=== PATIENT | male | born 1975 | race Caucasian/White ===

== ENCOUNTER 2023-02-22 11:27 | Emergency (ER) | payer BC ==
--- OUTSIDE RECORDS SUMMARY | 2023-02-22 11:34 | XMS REPORT | Continuity of Care Document ---
:1975 Author Organization [facility] t Address [address] [facility] [address] [place] [address] Care Team Providers Name Role Phone Asked, No Pcp Primary Care Physician Unavailable MAYKEL COHEN Attending Clinician Unavailable CIARA SAAVEDRA Attending Clinician Unavailable NICK VILLA Attending Clinician Unavailable CAIO RUIZ Attending Clinician Unavailable LASHANDA HO Attending Clinician Unavailable KATRIN GAMBOA Attending Clinician Unavailable HAILEY HOUSE Attending Clinician Unavailable MAYKEL COHEN Attending Clinician Unavailable BILLY_[facility]_Felice_M Attending Clinician Unavailable PATRIC MCKEON Attending Clinician Unavailable JARED VINCENT Attending Clinician Unavailable Jackie Hernandez MD Attending Clinician Michael Perla Attending Clinician DAVID STAFFORD Attending Clinician Unavailable GEORGE APPIAH Attending Clinician Unavailable TARAH SANTIAGO Attending Clinician Unavailable ALVERTO SOLO Attending Clinician Unavailable KATRIN GAMBOA Admitting Clinician [facility]Fel[facility] Admitting Clinician Unavailable MICHAEL PERLA Admitting Clinician Unavailable DAVID STAFFORD Admitting Clinician Unavailable ALVERTO SOLO Admitting Clinician Unavailable Payers Payer Name Policy Type Policy Number Effective Date Expiration Date S dimas BCBS PPO POS EPO [id number] 2020 [place]ICE 00:00:00 [place] [id number] 2020 ADVANTAGE (HMO) 00:00:00 Problems Condition Condition Condition Status Onset Resolution Last Treating Co mments Source Name Details Category Date Date Treatment Clinician Date Acute Acute Disease Active [facility] congestive congestive 7-18 st heart heart 00:00: Hospita failure, failure, 00 l unspecifie unspecifie d heart d heart failure failure type type Congestive Congestive Problem Active [facility] heart Heart 4-21 Medical failure Failure 00:00: 00 Sinus Sinus Problem Active [facility] tachycardi Tachycardi 3-09 Me dical a a 00:00: 00 Dyspnea on Dyspnea on Problem Active [facility] exertion Exertion 2-17 Medica l 00:00: 00 Generalize Generalize Problem Active [facility] d anxiety d Anxiety 2-17 Medi gordon disorder Disorder 00:00: 00 Dyspnea Dyspnea Problem Active [facility] 2-17 Medical 00:00: 00 Pain in Pain in Problem Active [facility] right hip Right Hip 1-27 Medi gordon joint Joint 00:00: 00 Pain of Pain of Problem Active [facility] right knee Right Knee 1-27 Me dical joint Joint 00:00: 00 Disorder Disorder Problem Active [facility] a of of 1-27 Medical endocrine Endocrine 00:00: system System 00 Acute Acute Problem Active [facility] pericardit Pericardit 1-27 Me dical is is 00:00: 00 Atrial Atrial Problem Active [facility] fibrillati Fibrillati 1-27 Me dical on on 00:00: 00 Insect Insect Problem Active [facility] bite, Bite, 3-30 Medical nonvenomou Nonvenomou 00:00: s, of foot s, of Foot 00 Superficia Superficia Problem Active [facility] l foreign l Foreign 3-30 Medi gordon body of Body of 00:00: skin of Skin of 00 right foot Right Foot Localized Localized Problem Active Christina via swelling Swelling 3-30 Medica l of left of Left 00:00: lower leg Lower Leg 00 Allergies, Adverse Reactions, Alerts Allergy Allergy Status Severity Reaction(s) Onset Inactive Treating Comm ents Source Name Type Date Date Clinician ADHESIVE Allergy [facility] NO KNOWN Allergy Active [facility] Social History Social Habit Start Date Stop Date Quantity Comments Source Sexual orientation Method t Hospital History of Social 2022-11-18 2022-11-18 [facility] function 00:00:00 00:00:00 Sex Ass[birth year] At [birth year] Met [facility] 00:00:00 00:00:00 Smoking Status Start Date Stop Date Source Tobacco smoking consumption unknown [facility] Medications Ordered Filled Start Stop Current Ordering Indication Dosage Frequency Signature Comments Components Source Medication Medication Date Date Medication? Clinician (SIG) Name Name atorvastati Yes 80mg QD Take 1 Meth meggan n (LIPITOR) 7-20 tablet (80 st 80 MG 05:26: mg total) Hospita tablet 02 by mouth l daily. digOXIN Yes 250ug QD Take 1 [facility] (LANOXIN) 7-[address] 250 mcg 05:26: (250 mcg Hospit a (0.25 mg) 02 total) by l tablet mouth daily. empaglifloz Yes 10mg QD Take 1 Meth meggan in 7-20 tablet (10 st (Jardiance) 05:26: mg total) H ospita 10 mg 02 by mouth l tablet daily. tablet furosemide 0 Yes 80mg Q.5D Take 1 Metho di (LASIX) 80 7-20 tablet (80 st mg tablet 05:26: mg total) Hos sharon 02 by mouth 2 l (two) times a day. metoprolol 0 Yes 50mg QD Take 1 Metho di succinate 7-20 tablet (50 st XL 05:26: mg total) Hospita (TOPROL-XL) 02 by mouth l 50 mg 24 hr daily. tablet potassium 0 Yes 20meq Q.5D Take 20 Meth meggan chloride 20 7-[address] mEq tablet 05:26: mouth 2 Hosp tom extended 02 (two) l release times a day. rivaroxaban 0 Yes 20mg QD Take 1 Meth meggan (XARELTO) 7-20 tablet (20 st 20 mg 05:26: mg total) Hospita tablet 02 by mouth l daily. sacubitriL- Yes 1{tbl} Q.5D Take 1 Me thodi valsartan 7-[address] (Entresto) 05:26: mouth 2 Hosp tom 24-26 mg 02 (two) l tablet per times a tablet day. traZODone 2022-0 Yes 50mg QD Take 1 Method i (DESYREL) 7-20 tablet (50 st 50 MG 05:26: mg total) Hospita tablet 02 by mouth l nightly. albuterol albuterol No 2puff(s Q4H albuterol [facility] sulfate HFA sulfate HFA ) sulfate Medical 90 90 HFA 90 mcg/actuati mcg/actuati mcg/actuat on aerosol on aerosol ion inhaler inhaler aerosol Inhale 2 Inhale 2 inhaler puffs every puffs every Inhale 2 4 hours by 4 hours by puffs inhalation inhalation every 4 route as route as hours by needed. needed. inhalation route as needed. prednisone prednisone No 1 BID prednisone [facility] 20 mg 20 mg 20 mg Medical tablet Take tablet Take tablet 1 tablet 1 tablet Take 1 twice a day twice a day tablet by oral by oral twice a route for 5 route for 5 day by days. days. oral route for 5 days. propranolol propranolol No 1 BID propranolo [facility] 20 mg 20 mg l 20 mg Medical tablet Take tablet Take tablet 1 tablet 1 tablet Take 1 twice a day twice a day tablet by oral by oral twice a route as route as day by needed. needed. oral route as needed. acetaminoph acetaminoph No acetaminop [facility] en 300 en 300 hen 300 Medical mg-codeine mg-codeine mg-codeine 30 mg 30 mg 30 mg tablet TAKE tablet TAKE tablet 1 TABLET BY 1 TABLET BY TAKE 1 MOUTH EVERY MOUTH EVERY TABLET BY 4 HOURS 4 HOURS MOUTH NEEDED NEEDED EVERY 4 HOURS NEEDED albuterol albuterol No albuterol [facility] sulfate HFA sulfate HFA sulfate Medical 90 90 HFA 90 mcg/actuati mcg/actuati mcg/actuat on aerosol on aerosol ion inhaler inhaler aerosol Inhale 2 Inhale 2 inhaler puffs every puffs every Inhale 2 4 hours by 4 hours by puffs inhalation inhalation every 4 route as route as hours by needed. needed. inhalation route as needed. amoxicillin amoxicillin No amoxicilli [facility] 500 mg 500 mg n 500 mg Medical capsule capsule capsule TAKE 1 TAKE 1 TAKE 1 CAPSULE BY CAPSULE BY CAPSULE BY MOUTH EVERY MOUTH EVERY MOUTH 6 HOURS 6 HOURS EVERY 6 DIRECTED DIRECTED HOURS DIRECTED prednisone prednisone No 1 BID prednisone [facility] 20 mg 20 mg 20 mg Medical tablet Take tablet Take tablet 1 tablet 1 tablet Take 1 twice a day twice a day tablet by oral by oral twice a route for 5 route for 5 day by days. days. oral route for 5 days. propranolol propranolol No 1 BID propranolo [facility] 20 mg 20 mg l 20 mg Medical tablet Take tablet Take tablet 1 tablet 1 tablet Take 1 twice a day twice a day tablet by oral by oral twice a route as route as day by needed. needed. oral route as needed. acetaminoph acetaminoph No acetaminop [facility] en 300 en 300 hen 300 Medical mg-codeine mg-codeine mg-codeine 30 mg 30 mg 30 mg tablet TAKE tablet TAKE tablet 1 TABLET BY 1 TABLET BY TAKE 1 MOUTH EVERY MOUTH EVERY TABLET BY 4 HOURS 4 HOURS MOUTH NEEDED NEEDED EVERY 4 HOURS NEEDED albuterol albuterol No albuterol [facility] sulfate HFA sulfate HFA sulfate Medical 90 90 HFA 90 mcg/actuati mcg/actuati mcg/actuat on aerosol on aerosol ion inhaler inhaler aerosol Inhale 2 Inhale 2 inhaler puffs every puffs every Inhale 2 4 hours by 4 hours by puffs inhalation inhalation every 4 route as route as hours by needed. needed. inhalation route as needed. amiodarone amiodarone No amiodarone [facility] 200 mg 200 mg 200 mg Medical tablet tablet tablet amoxicillin amoxicillin No amoxicilli [facility] 500 mg 500 mg n 500 mg Medical capsule capsule capsule TAKE 1 TAKE 1 TAKE 1 CAPSULE BY CAPSULE BY CAPSULE BY MOUTH EVERY MOUTH EVERY MOUTH 6 HOURS 6 HOURS EVERY 6 DIRECTED DIRECTED HOURS DIRECTED furosemide furosemide No furosemide [facility] 80 mg 80 mg 80 mg Medical tablet TAKE tablet TAKE tablet 1 TABLET BY 1 TABLET BY TAKE 1 MOUTH TWICE MOUTH TWICE TABLET BY A DAY A DAY MOUTH TWICE A DAY losartan 50 losartan 50 No losartan [facility] mg tablet mg tablet 50 mg Medi gordon tablet metoprolol metoprolol No 1 Q1D metoprolol [facility] succinate succinate succinate Medical ER 50 mg ER 50 mg ER 50 mg tablet,exte tablet,exte tablet,ext nded nded ended release 24 release 24 release 24 hr Take 1 hr Take 1 hr Take 1 tablet tablet tablet every day every day every day by oral by oral by oral route for route for route for 90 days. 90 days. 90 days. metoprolol metoprolol No metoprolol [facility] tartrate 25 tartrate 25 tartrate Medical mg tablet mg tablet 25 mg tablet potassium potassium No 1 BID potassium [facility] chloride ER chloride ER chloride Medical 20 mEq 20 mEq ER 20 mEq tablet,exte tablet,exte tablet,ext nded nded ended release release release Take 1 Take 1 Take 1 tablet tablet tablet twice a day twice a day twice a by oral by oral day by route for route for oral route 90 days. 90 days. for 90 days. prednisone prednisone No 1 BID prednisone [facility] 20 mg 20 mg 20 mg Medical tablet Take tablet Take tablet 1 tablet 1 tablet Take 1 twice a day twice a day tablet by oral by oral twice a route for 5 route for 5 day by days. days. oral route for 5 days. propranolol propranolol No 1 BID propranolo [facility] 20 mg 20 mg l 20 mg Medical tablet Take tablet Take tablet 1 tablet 1 tablet Take 1 twice a day twice a day tablet by oral by oral twice a route as route as day by needed. needed. oral route as needed. Vital Signs Vital Name Observation Time Observation Value Comments Source WEIGHT 2022-12-06 02:35:00 122.067 kg WEIGHT 2022-12-05 07:16:00 122.426 kg WEIGHT 2022-12-05 05:00:00 124.013 kg WEIGHT 2022-12-04 09:00:00 123.016 kg WEIGHT 2022-12-03 09:00:00 122.879 kg WEIGHT 2022-12-01 04:00:00 126.4 kg WEIGHT 2022-11-30 05:00:00 126.5 kg WEIGHT 2022-11-29 12:30:00 123.787 kg WEIGHT 2022-11-29 05:55:00 124.6 kg WEIGHT 2022-11-28 04:00:00 119.6 kg WEIGHT 2022-11-27 16:40:00 125.1 kg WEIGHT 2022-11-27 05:23:00 125.5 kg WEIGHT 2022-11-26 09:00:00 125.4 kg WEIGHT 2022-11-25 08:00:00 125.4 kg WEIGHT 2022-11-25 06:00:00 115.1 kg HEIGHT 2022-11-24 20:00:00 190.5 cm WEIGHT 2022-11-24 03:56:00 130 kg WEIGHT 2022-11-22 03:49:00 130.2 kg WEIGHT 2022-11-20 00:19:00 133.72 kg HEIGHT 2022-11-19 18:55:00 190.5 cm WEIGHT 2022-11-19 18:55:00 135.172 kg WEIGHT 2022-12-06 02:35:00 122.067 kg WEIGHT 2022-12-05 07:16:00 122.426 kg WEIGHT 2022-12-05 05:00:00 124.013 kg WEIGHT 2022-12-04 09:00:00 123.016 kg WEIGHT 2022-12-03 09:00:00 122.879 kg WEIGHT 2022-12-01 04:00:00 126.4 kg WEIGHT 2022-11-30 05:00:00 126.5 kg WEIGHT 2022-11-29 12:30:00 123.787 kg WEIGHT 2022-11-29 05:55:00 124.6 kg WEIGHT 2022-11-28 04:00:00 119.6 kg WEIGHT 2022-11-27 16:40:00 125.1 kg WEIGHT 2022-11-27 05:23:00 125.5 kg WEIGHT 2022-11-26 09:00:00 125.4 kg WEIGHT 2022-11-25 08:00:00 125.4 kg WEIGHT 2022-11-25 06:00:00 115.1 kg HEIGHT 2022-11-24 20:00:00 190.5 cm WEIGHT 2022-11-24 03:56:00 130 kg WEIGHT 2022-11-22 03:49:00 130.2 kg WEIGHT 2022-11-20 00:19:00 133.72 kg HEIGHT 2022-11-19 18:55:00 190.5 cm WEIGHT 2022-11-19 18:55:00 135.172 kg BP Diastolic 2022-07-10 00:00:00 118 mm[Hg] Shanti Katz edical Height 2022-07-10 00:00:00 75 [in_i] Shanti santoyo BMI (Body Mass 2022-07-10 00:00:00 38.2 kg/m2 [facility] Medical Index) BP Systolic 2022-07-10 00:00:00 150 mm[Hg] Shanti santoyo Body Weight 2022-07-10 00:00:00 4896 [oz_av] Shanti Katz edical Systolic blood 2022-11-19 07:32:00 100 mm[Hg] [facility] pressure Diastolic blood 2022-11-19 07:32:00 68 mm[Hg] [facility] pressure Heart rate 2022-11-19 07:32:00 91 /min [facility] Body temperature 2022-11-19 07:32:[address] [facility] Respiratory rate 2022-11-19 07:32:00 24 /min [facility] Oxygen saturation in 2022-11-19 07:32:00 99 /min [facility] Arterial blood by Pulse oximetry Body height 2022-11-18 21:40:00 190.5 cm [facility] Body weight 2022-11-18 21:40:00 129.729 kg [facility] BMI 2022-11-18 21:40:00 35.75 kg/m2 [facility] Procedures Procedure Date / Time Performing Clinician Source Performed ECG ED PRELIMINARY [facility]22-11[facility]19 [facility] 2022-11-19 01:33:00 Brittney Osman [facility]ital URINE CULTURE 2022-11-18 23:09:00 Brittney Osman spital URINALYSIS SCREEN AND 2022-11-18 23[facility]09:00 [facility], WITH REFLEX TO CULTURE XR CHEST 1 VW 2022-11-18 22:30:25 Brittney Osman spital PROTHROMBIN TIME WITH INR 2022-11-18 21:59:00 Brittney Osman [facility] PARTIAL THROMBOPLASTIN 2022-11-18 21:59:00 Dawson [facility] TIME (PTT) CBC WITH PLATELET AND 2022-11-18 21:59:00 [facility] DIFFERENTIAL COMPREHENSIVE METABOLIC 2022-11-18 21:59:00 Dawson [facility] PANEL MAGNESIUM LEVEL 2022-11-18 21:59:00 Brittney Osman spital TROPONIN T 2022-11-18 21:59:00 Brittney Osman Ho [facility]ital NT-PROBNP 2022-11-18 21:59:00 Brittney Osman Ho [facility]ital ESTIMATED GFR 2022-11-18 21:59:00 Brittney Osman Ho spital ECG 12-LEAD 2022-11-18 21:52:21 Brittney Osman Ho spital Plan of Care Planned Activity Planned Date Details Comments Source Future Scheduled 2023-02-[address] [facility] Test 21:20:44 malignant neoplasm of colon (procedure) [code = 335988333] Future Scheduled 2023-02-[address] [facility] Test 21:20:44 malignant neoplasm of colon (procedure) [code = 563460707] Future Scheduled 2023-02-[address] [facility] Test 21:20:44 malignant neoplasm of colon (procedure) [code = 966844174] Future Scheduled 2023-02-15 COVID-19 VACCINE (#1) [facility] Test 21:20:44 [code = COVID-19 VACCINE (#1)] Future Scheduled 2023-02-15 Pneumococcal Vaccine: [facility] Test 21:20:44 Pediatrics (0 to 5 Years) and At-Risk Patients (6 to 64 Years) (1 - PCV) [code = Pneumococcal Vaccine: Pediatrics (0 to 5 Years) and At-Risk Patients (6 to 64 Years) (1 - PCV)] Future Scheduled 2023-02-15 Hepatitis C screening [facility] Test 21:20:44 (procedure) [code = 743229236] Future Scheduled 2023-02-[address] [facility] Test 21:20:44 malignant neoplasm of colon (procedure) [code = 348608541] Future Scheduled 2023-02-[address] [facility] Test 21:20:44 malignant neoplasm of colon (procedure) [code = 837053238] Future Scheduled 2023-02-15 INFLUENZA VACCINE (#1) [facility] Test 21:20:44 [code = INFLUENZA VACCINE (#1)] Future Scheduled 2023-02-15 RSV VACCINES > 60 YR [facility] Test 21:20:44 (1 - 1-dose 60+ series) [code = RSV VACCINES > 60 YR (1 - 1-dose 60+ series)] Encounters Start End Encounter Admission Attending Care Care Encounter Source Date/Time Date/Time Type Type Clinicians Facility Department ID 2022-12-04 Inpatient ER MAYKEL COHEN [facility] [id number] [facility] 20:42:09 2022-12-01 Inpatient ER QUENTIN [facility] [id number] [facility] 00:00:00 CIARA 2022-11-29 Inpatient ER ALLEN [facility] [id number] [facility] 16:12:45 [facility] 2022-11-29 Inpatient ER ALLEN [facility] [id number] SLEH 15:49:06 [facility] 2022-11-29 Inpatient ER JOSEPH [facility] SLEH [id number] SLEH 00:16:38 CAIO 2022-11-28 Inpatient ER JOSEPH [facility] [id number] SLEH 10:36:25 CAIO 2022-11-28 Inpatient ER JOSEPH [facility] [id number] SLEH 07:38:23 CAIO 2022-11-28 Inpatient ER QUENTIN [facility] [id number] [facility] 00:00:00 [facility] 2022-11-28 Inpatient ER QUENTIN [facility]H SLEH [id number] SLEH 00:00:00 [facility] 2022-11-26 Inpatient ER SLEH SLEH [id number] SLEH 10:13:02 2022-11-25 Inpatient ER SLEH SLEH [id number] SLEH 10:26:20 2022-11-25 Inpatient ER SLEH SLEH [id number] SLEH 04:23:35 2022-11-24 Inpatient ER SLEH SLEH [id number] SLEH 19:15:17 2022-11-24 Inpatient ER SLEH SLEH [id number] SLEH 00:00:00 2022-11-23 Inpatient ER LASHANDA HO [facility] SLEH [id number] SLEH 07:54:44 2022-11-21 Inpatient ER BEE [facility]H SLEH [id number] SLEH 09:47:06 KATRIN 2022-09-30 Inpatient TREE RUIZ [facility] [id number] [facility] 07:00:00 [id number] [facility] 2023-01-30 2023-01-30 Outpatient MAYKEL CHAPPELL [facility] D00 [id number] [place] 15:29:00 15:29:00 -[id number] [facility] 2022-12-12 2022-12-12 Outpatient GC_GCHFM_Hi PRIV PRIV [id number] [facility] 00:00:00 00:00:00 ll_M [id number] Medica l 2022-11-19 2022-12-06 Inpatient ER LASHANDA HO SLE Emergency 20 [id number] SLE[facility] 19:01:00 13:04:00 2022-11-25 2022-11-25 Outpatient SLEH SLEH [id number] SLEH 00:00:00 00:00:00 2022-11-24 2022-11-24 Inpatient ER SLEH SLEH [id number] SLEH 23:22:47 00:00:00 2022-11-22 2022-11-22 Inpatient ER SEN, SLEH SLEH [id number] SLEH 23:37:50 00:00:00 JARED 2022-11-22 2022-11-22 Inpatient ER SEN, SLEH SLEH [id number] SLEH 23:37:48 00:00:00 JARED 2022-11-21 2022-11-21 Inpatient ER BEE, SLE SLEH [id number] SLE 00:00:00 00:00:00 KATRIN 2022-11-19 2022-11-19 Emergency ER [facility] SLE SLE [id number] SLE 19:25:01 19:25:01 PATRIC KWOK 2022-11-18 2022-11-19 [facility] [id number] [facility]i 16:43:00 05:26:00 Encounter Michael Perla [id number] [id number] Hospit a .3.982063 l .8 2022-11-18 2022-11-19 Inpatient SAM [facility] [id number] [place] 00:00:00 00:00:00 MICHAEL [address] 2022-11-16 2022-11-18 Inpatient ER [facility] [id number] [place] 02:44:00 12:30:00 DAVID -[id number] d a [facility] 2022-11-15 2022-11-15 Emergency ER BIJAL, [facility] [id number] [place] 23:56:00 23:56:00 GEORGE -[id number] [facility] 2022-11-14 2022-11-14 Outpatient CINDY SANTIAGO, [facility] [id number] [place] 12:59:00 12:59:00 TARAH -[id number] [facility] 2022-10-22 2022-10-22 Outpatient GC_G[facility]_Hi PRIV PRIV [id number] [facility] 00:00:00 00:00:00 ll_M [id number] Medica l 2022-10-21 2022-10-21 Outpatient GC_[facility]_Hi PRIV PRIV [id number] [facility] 00:00:00 00:00:00 ll_M [id number] Medica 2022-09-23 2022-09-26 Inpatient ER EDIL, [facility] MED [id number] [place] 20:37:00 14:25:00 MOHAMMAD -[id number] [facility] 2022-09-05 2022-09-05 Outpatient CINDY HOUSE, [facility] [id number] [place] 10:32:00 10:32:00 HAILEY -[id number] [facility] 2022-08-25 2022-08-25 Outpatient GC_GCH[facility]_Hi PRIV PRIV [id number] [facility] 00:00:00 00:00:00 ll_M [id number] Medica l 2022-08-22 2022-08-22 Outpatient GC_G[facility]_Hi PRIV PRIV [id number] [facility] 00:00:00 00:00:00 ll_M [id number] Medica l 2022-08-22 2022-08-22 Michael [facility] 21 [facility] 00:00:00 00:00:00 Felice DO: Health - Med ical [id number] GC[address], Office* [place] [address] , Ph. 2022-07-10 2022-07-10 Outpatient GC_G[facility]_Hi PRIV PRIV [id number] [facility] 00:00:00 00:00:00 ll_M [id number] Medica l 2022-07-10 2022-07-10 Michael [facility] 09 [facility] 00:00:00 00:00:00 Hill, DO: Health - Med ical [id number] F[address] [facility] [address], Office* [place] [address] , Ph. 2022-06-20 2022-06-20 Outpatient GC_GCH[facility]_Hi PRIV PRIV [id number] [facility] 00:00:00 00:00:00 ll_M [id number] Medica l 2022-06-20 2022-06-20 Michael [facility] 17 [facility] 00:00:00 00:00:00 Hill, DO: Health - Med ical [id number] Fm [facility]_Au [address] [facility] [address], Office* [place] [address] , Ph. 2022-02-27 2022-02-27 Outpatient GC_GCHFM_Hi PRIV PRIV [id number] [facility] 00:00:00 00:00:00 ll_M [id number] Medica l Results Test Description Test Time Test Comments Results Result Comments Source CYANIDE LEVEL 2022-12-08 13:05:08 Test Item Value Reference Range Interpretation Comme nts SCAN RESULT (test code = 2791213) BASIC METABOLIC [id number] 04:45:09 Test Item Value Reference Range Interpretation Comments SODIUM (BEAKER) 138 meq/L 136-145 (test code = 381) POTASSIUM 4.3 meq/L 3.5-5.1 Specimen slight ly (BEAKER) (test hemolyzed code = 379) CHLORIDE (BEAKER) 94 meq/L 98-107 L (test code = 382) CO2 (BEAKER) 31 meq/L 22-29 H (test code = 355) BLOOD UREA 38 mg/dL 7-21 H NITROGEN (BEAKER) (test code = 354) CREATININE 2.98 mg/dL 0.57-1.25 H Specimen slight ly (BEAKER) (test hemolyzed code = 358) GLUCOSE RANDOM 104 mg/dL 70-105 (BEAKER) (test code = 652) CALCIUM (BEAKER) 9.5 mg/dL 8.4-10.2 (test code = 697) EGFR (BEAKER) 25 Interpretatio n of eGFR (test code = mL/min/1.73 values Stage De scription 1092) sq m Result G1 Nelida l or high >=90 G2 Mildly decreased 60-89 G3a Mildl y to moderately 45-5 9 G3b Moderately to s everely 30-44 G4 Severl y decreased 15-29 G5 Kidney failure <15Reported eGF R is based on the CKD-EPI 2020 equation that d oes not use a race coefficientEsti mated GFR is not as accur ate as Creatinine Carol licha in predicting glom erular filtration rate . Estimated GFR is not appl icable for dialysis patien ts Heeler ID - ADMINDIGOXIN [id number] 04:17:21 Test Item Value Reference Range Interpretation Comments DIGOXIN LEVEL (BEAKER) (test code 0.62 ng/mL 0.80-2.00 L = 669) Heeler ID - [id number] 03:18:19 Test Item Value Reference Range Interpretation Comments PHOSPHORUS (BEAKER) (test code = 4.8 mg/dL 2.3-4.7 H 604) Heeler ID - [id number] 03:18:18 Test Item Value Reference Range Interpretation Comments MAGNESIUM (BEAKER) (test code = 2.3 mg/dL 1.6-2.6 627) Heeler ID - ADMINOperator ID - ADMINLACTIC ACID, [id number] 03:10:39 Test Item Value Reference Range Interpretation Comments LACTATE BLOOD VENOUS 1.74 mmol/L 0.50-2.00 Specime n slightly (2) (BEAKER) (test hemolyzed code = 2152) Heeler ID - ADMINCBC W/PLT COUNT & AUTO [id number] 03:00:34 Test Item Value Reference Range Interpretation Comments WHITE BLOOD CELL COUNT (BEAKER) 11.6 K/ L 3.5-10.5 H (test code = 775) RED BLOOD CELL COUNT (BEAKER) 4.66 M/ L 4.63-6.08 (test code = 761) HEMOGLOBIN (BEAKER) (test code = 11.5 GM/DL 13.7-17.5 L 410) HEMATOCRIT (BEAKER) (test code = 38.1 % 40.1-51.0 L 411) MEAN CORPUSCULAR VOLUME (BEAKER) 82 fL 79-92 (test code = 753) MEAN CORPUSCULAR HEMOGLOBIN 24.7 pg 25.7-32.2 L (BEAKER) (test code = 751) MEAN CORPUSCULAR HEMOGLOBIN CONC 30.2 GM/DL 32.3-36.5 L (BEAKER) (test code = 752) RED CELL DISTRIBUTION WIDTH 15.2 % 11.6-14.4 H (BEAKER) (test code = 412) PLATELET COUNT (BEAKER) (test 370 K/CU MM 150-450 code = 756) MEAN PLATELET VOLUME (BEAKER) 9.1 fL 9.4-12.4 L (test code = 754) NUCLEATED RED BLOOD CELLS 0 /100 WBC 0-0 (BEAKER) (test code = 413) NEUTROPHILS RELATIVE PERCENT 68 % (BEAKER) (test code = 429) LYMPHOCYTES RELATIVE PERCENT 17 % (BEAKER) (test code = 430) MONOCYTES RELATIVE PERCENT 10 % (BEAKER) (test code = 431) EOSINOPHILS RELATIVE PERCENT 2 % (BEAKER) (test code = 432) BASOPHILS RELATIVE PERCENT 1 % (BEAKER) (test code = 437) NEUTROPHILS ABSOLUTE COUNT 7.87 K/ L 1.78-5.38 H (BEAKER) (test code = 670) LYMPHOCYTES ABSOLUTE COUNT 1.94 K/ L 1.32-3.57 (BEAKER) (test code = 414) MONOCYTES ABSOLUTE COUNT (BEAKER) 1.20 K/ L 0.30-0.82 H (test code = 415) EOSINOPHILS ABSOLUTE COUNT 0.23 K/ L 0.04-0.54 (BEAKER) (test code = 416) BASOPHILS ABSOLUTE COUNT (BEAKER) 0.09 K/ L 0.01-0.08 H (test code = 417) IMMATURE GRANULOCYTES-RELATIVE 1.90 % 0.00-1.00 H PERCENT (BEAKER) (test code = 2801) BASIC METABOLIC [id number] 18:15:13 Test Item Value Reference Range Interpretation Comments SODIUM (BEAKER) 136 meq/L 136-145 (test code = 381) POTASSIUM 3.6 meq/L 3.5-5.1 (BEAKER) (test code = 379) CHLORIDE (BEAKER) 92 meq/L 98-107 L (test code = 382) CO2 (BEAKER) 33 meq/L 22-29 H (test code = 355) BLOOD UREA 39 mg/dL 7-21 H NITROGEN (BEAKER) (test code = 354) CREATININE 2.86 mg/dL 0.57-1.25 H (BEAKER) (test code = 358) GLUCOSE RANDOM 118 mg/dL 70-105 H (BEAKER) (test code = 652) CALCIUM (BEAKER) 9.7 mg/dL 8.4-10.2 (test code = 697) EGFR (BEAKER) 27 Interpretatio n of eGFR (test code = mL/min/1.73 values Stage De scription 1092) sq m Result G1 Nelida l or high >=90 G2 Mildly decreased 60-89 G3a Mildl y to moderately 45-5 9 G3b Moderately to s everely 30-44 G4 Severl y decreased 15-29 G5 Kidney failure <15Reported eGF R is based on the CKD-EPI 2021 equation that d oes not use a race coefficientEsti mated GFR is not as accur ate as Creatinine Carol licha in predicting glom erular filtration rate . Estimated GFR is not appl icable for dialysis patien ts Heeler ID - ADMINBASIC METABOLIC [id number] 06:05:54 Test Item Value Reference Range Interpretation Comments SODIUM (BEAKER) 135 meq/L 136-145 L (test code = 381) POTASSIUM 3.8 meq/L 3.5-5.1 Specimen slight ly (BEAKER) (test hemolyzed code = 379) CHLORIDE (BEAKER) 91 meq/L 98-107 L (test code = 382) CO2 (BEAKER) 31 meq/L 22-29 H (test code = 355) BLOOD UREA 38 mg/dL 7-21 H NITROGEN (BEAKER) (test code = 354) CREATININE 2.80 mg/dL 0.57-1.25 H Specimen slight ly (BEAKER) (test hemolyzed code = 358) GLUCOSE RANDOM 99 mg/dL 70-105 (BEAKER) (test code = 652) CALCIUM (BEAKER) 9.4 mg/dL 8.4-10.2 (test code = 697) EGFR (BEAKER) 27 Interpretatio n of eGFR (test code = mL/min/1.73 values Stage De scription 1092) sq m Result G1 Nelida l or high >=90 G2 Mildly decreased 60-89 G3a Mildl y to moderately 45-5 9 G3b Moderately to s everely 30-44 G4 Severl y decreased 15-29 G5 Kidney failure <15Reported eGF R is based on the CKD-EPI 2020 equation that d oes not use a race coefficientEsti mated GFR is not as accur ate as Creatinine Carol licha in predicting glom erular filtration rate . Estimated GFR is not appl icable for dialysis patien ts Heeler ID - [id number] 05:49:20 Test Item Value Reference Range Interpretation Comments MAGNESIUM (BEAKER) 2.3 mg/dL 1.6-2.6 Specimen slightly (test code = 627) hemolyzed Heeler ID - [id number] 05:49:20 Test Item Value Reference Range Interpretation Comments PHOSPHORUS (BEAKER) 4.8 mg/dL 2.3-4.7 H Specimen slightly (test code = 604) hemolyzed Heeler ID - ADMINHEPATIC FUNCTION [id number] 05:49:20 Test Item Value Reference Range Interpretation Comments TOTAL PROTEIN (BEAKER) 7.0 gm/dL 6.0-8.3 Speci men slightly (test code = 770) hemolyzed ALBUMIN (BEAKER) (test 3.6 g/dL 3.5-5.0 Speci men slightly code = 1145) hemolyzed BILIRUBIN TOTAL 0.6 mg/dL 0.2-1.2 Specimen sli ghtly (BEAKER) (test code = hemoly zed 377) BILIRUBIN DIRECT 0.3 mg/dL 0.1-0.5 Specimen sl ightly (BEAKER) (test code = hemoly zed 706) ALKALINE PHOSPHATASE 61 U/L 40-150 (BEAKER) (test code = 346) AST (SGOT) (BEAKER) 27 U/L 5-34 Specimen slightly (test code = 353) hemolyzed ALT (SGPT) (BEAKER) 6 U/L 6-55 Specimen slightly (test code = 347) hemolyzed Heeler ID - ADMINDIGOXIN [id number] 05:32:09 Test Item Value Reference Range Interpretation Comments DIGOXIN LEVEL (BEAKER) (test code 0.81 ng/mL 0.80-2.00 = 669) Heeler ID - MARCOCALCIUM, [id number] 05:27:36 Test Item Value Reference Range Interpretation Comments CALCIUM IONIZED (BEAKER) (test 1.06 mmol/L 1.12-1.27 L code = 698) PH, BLOOD (BEAKER) (test code = 7.48 1810) LACTIC ACID, [id number] 05:25:32 Test Item Value Reference Range Interpretation Comments LACTATE BLOOD VENOUS 1.75 mmol/L 0.50-2.00 Specime n slightly (2) (BEAKER) (test hemolyzed code = 2872) Heeler ID - MARCOCBC W/PLT COUNT & AUTO [id number] 05:09:25 Test Item Value Reference Range Interpretation Comments WHITE BLOOD CELL COUNT (BEAKER) 10.4 K/ L 3.5-10.5 (test code = 775) RED BLOOD CELL COUNT (BEAKER) 4.54 M/ L 4.63-6.08 L (test code = 761) HEMOGLOBIN (BEAKER) (test code = 11.1 GM/DL 13.7-17.5 L 410) HEMATOCRIT (BEAKER) (test code = 37.0 % 40.1-51.0 L 411) MEAN CORPUSCULAR VOLUME (BEAKER) 82 fL 79-92 (test code = 753) MEAN CORPUSCULAR HEMOGLOBIN 24.4 pg 25.7-32.2 L (BEAKER) (test code = 751) MEAN CORPUSCULAR HEMOGLOBIN CONC 30.0 GM/DL 32.3-36.5 L (BEAKER) (test code = 752) RED CELL DISTRIBUTION WIDTH 15.0 % 11.6-14.4 H (BEAKER) (test code = 412) PLATELET COUNT (BEAKER) (test 315 K/CU MM 150-450 code = 756) MEAN PLATELET VOLUME (BEAKER) 9.6 fL 9.4-12.4 (test code = 754) NUCLEATED RED BLOOD CELLS 0 /100 WBC 0-0 (BEAKER) (test code = 413) NEUTROPHILS RELATIVE PERCENT 67 % (BEAKER) (test code = 429) LYMPHOCYTES RELATIVE PERCENT 19 % (BEAKER) (test code = 430) MONOCYTES RELATIVE PERCENT 9 % (BEAKER) (test code = 431) EOSINOPHILS RELATIVE PERCENT 2 % (BEAKER) (test code = 432) BASOPHILS RELATIVE PERCENT 1 % (BEAKER) (test code = 437) NEUTROPHILS ABSOLUTE COUNT 6.98 K/ L 1.78-5.38 H (BEAKER) (test code = 670) LYMPHOCYTES ABSOLUTE COUNT 2.01 K/ L 1.32-3.57 (BEAKER) (test code = 414) MONOCYTES ABSOLUTE COUNT (BEAKER) 0.92 K/ L 0.30-0.82 H (test code = 415) EOSINOPHILS ABSOLUTE COUNT 0.23 K/ L 0.04-0.54 (BEAKER) (test code = 416) BASOPHILS ABSOLUTE COUNT (BEAKER) 0.11 K/ L 0.01-0.08 H (test code = 417) IMMATURE GRANULOCYTES-RELATIVE 1.60 % 0.00-1.00 H PERCENT (BEAKER) (test code = 2801) BASIC METABOLIC [id number] 12:58:43 Test Item Value Reference Range Interpretation Comments SODIUM (BEAKER) 137 meq/L 136-145 (test code = 381) POTASSIUM 3.7 meq/L 3.5-5.1 (BEAKER) (test code = 379) CHLORIDE (BEAKER) 89 meq/L 98-107 L (test code = 382) CO2 (BEAKER) 35 meq/L 22-29 H (test code = 355) BLOOD UREA 40 mg/dL 7-21 H NITROGEN (BEAKER) (test code = 354) CREATININE 2.97 mg/dL 0.57-1.25 H (BEAKER) (test code = 358) GLUCOSE RANDOM 119 mg/dL 70-105 H (BEAKER) (test code = 652) CALCIUM (BEAKER) 9.4 mg/dL 8.4-10.2 (test code = 697) EGFR (BEAKER) 25 Interpretatio n of eGFR (test code = mL/min/1.73 values Stage De scription 1092) sq m Result G1 Nelida l or high >=90 G2 Mildly decreased 60-89 G3a Mildl y to moderately 45-5 9 G3b Moderately to s everely 30-44 G4 Severl y decreased 15-29 G5 Kidney failure <15Reported eGF R is based on the CKD-EPI 2020 equation that d oes not use a race coefficientEsti mated GFR is not as accur ate as Creatinine Carol licha in predicting glom erular filtration rate . Estimated GFR is not appl icable for dialysis patien ts Heeler ID - [id number] 12:55:04 Test Item Value Reference Range Interpretation Comments MAGNESIUM (BEAKER) (test code = 2.3 mg/dL 1.6-2.6 627) Heeler ID - MMCALCIUM, [id number] 12:34:26 Test Item Value Reference Range Interpretation Comments CALCIUM IONIZED (BEAKER) (test 1.07 mmol/L 1.12-1.27 L code = 698) PH, BLOOD (BEAKER) (test code = 7.47 5870) LACTIC ACID, [id number] 12:29:11 Test Item Value Reference Range Interpretation Comments LACTATE BLOOD VENOUS (2) (BEAKER) 1.78 mmol/L 0.50-2.00 (test code = 2872) Heeler ID - MMLACTIC ACID, [id number] 09:38:06 Test Item Value Reference Range Interpretation Comments LACTATE BLOOD VENOUS 2.30 mmol/L 0.50-2.00 H Specime n slightly (2) (BEAKER) (test hemolyzed code = 2872) Heeler ID - [id number] 09:30:01 Test Item Value Reference Range Interpretation Comments PARTIAL THROMBOPLASTIN TIME 79.8 seconds 22.5-36.0 H (BEAKER) (test code = 760) DIGOXIN [id number] 06:25:01 Test Item Value Reference Range Interpretation Comments DIGOXIN LEVEL (BEAKER) (test code 0.92 ng/mL 0.80-2.00 = 669) Heeler ID - MMBASIC METABOLIC [id number] 05:52:07 Test Item Value Reference Range Interpretation Comments SODIUM (BEAKER) 138 meq/L 136-145 (test code = 381) POTASSIUM 3.6 meq/L 3.5-5.1 (BEAKER) (test code = 379) CHLORIDE (BEAKER) 89 meq/L 98-107 L (test code = 382) CO2 (BEAKER) 35 meq/L 22-29 H (test code = 355) BLOOD UREA 42 mg/dL 7-21 H NITROGEN (BEAKER) (test code = 354) CREATININE 3.03 mg/dL 0.57-1.25 H (BEAKER) (test code = 358) GLUCOSE RANDOM 121 mg/dL 70-105 H (BEAKER) (test code = 652) CALCIUM (BEAKER) 9.0 mg/dL 8.4-10.2 (test code = 697) EGFR (BEAKER) 25 Interpretatio n of eGFR (test code = mL/min/1.73 values Stage De scription 1092) sq m Result G1 Norm al or high >=90 G2 Mildly decreased 60-89 G3a Mildl y to moderately 45-5 9 G3b Moderately to s everely 30-44 G4 Severl y decreased 15-29 G5 Kidney failure <15Reported eGF R is based on the CKD-EPI 2020 equation that d oes not use a race coefficientEsti mated GFR is not as accur ate as Creatinine Carol licha in predicting glom erular filtration rate . Estimated GFR is not appl icable for dialysis patien ts Heeler ID - [id number] 05:49:44 Test Item Value Reference Range Interpretation Comments MAGNESIUM (BEAKER) (test code = 2.3 mg/dL 1.6-2.6 627) Heeler ID - [id number] 05:49:44 Test Item Value Reference Range Interpretation Comments PHOSPHORUS (BEAKER) (test code = 5.0 mg/dL 2.3-4.7 H 604) Heeler ID - MMHEPATIC FUNCTION [id number] 05:49:44 Test Item Value Reference Range Interpretation Comments TOTAL PROTEIN (BEAKER) (test code = 6.8 gm/dL 6.0-8.3 770) ALBUMIN (BEAKER) (test code = 1145) 3.6 g/dL 3.5-5.0 BILIRUBIN TOTAL (BEAKER) (test code 0.6 mg/dL 0.2-1.2 = 377) BILIRUBIN DIRECT (BEAKER) (test 0.3 mg/dL 0.1-0.5 code = 706) ALKALINE PHOSPHATASE (BEAKER) (test 63 U/L 40-150 code = 346) AST (SGOT) (BEAKER) (test code = 28 U/L 5-34 353) ALT (SGPT) (BEAKER) (test code = 6 U/L 6-55 347) Heeler ID - MMLACTIC ACID, [id number] 05:44:43 Test Item Value Reference Range Interpretation Comments LACTATE BLOOD VENOUS 1.68 mmol/L 0.50-2.00 Specime n slightly (2) (BEAKER) (test hemolyzed code = 2872) Heeler ID - MMCBC W/PLT COUNT & AUTO [id number] 05:44:16 Test Item Value Reference Range Interpretation Comments WHITE BLOOD CELL COUNT (BEAKER) 12.2 K/ L 3.5-10.5 H (test code = 775) RED BLOOD CELL COUNT (BEAKER) 4.48 M/ L 4.63-6.08 L (test code = 761) HEMOGLOBIN (BEAKER) (test code = 11.2 GM/DL 13.7-17.5 L 410) HEMATOCRIT (BEAKER) (test code = 36.2 % 40.1-51.0 L 411) MEAN CORPUSCULAR VOLUME (BEAKER) 81 fL 79-92 (test code = 753) MEAN CORPUSCULAR HEMOGLOBIN 25.0 pg 25.7-32.2 L (BEAKER) (test code = 751) MEAN CORPUSCULAR HEMOGLOBIN CONC 30.9 GM/DL 32.3-36.5 L (BEAKER) (test code = 752) RED CELL DISTRIBUTION WIDTH 15.0 % 11.6-14.4 H (BEAKER) (test code = 412) PLATELET COUNT (BEAKER) (test 324 K/CU MM 150-450 code = 756) MEAN PLATELET VOLUME (BEAKER) 9.2 fL 9.4-12.4 L (test code = 754) NUCLEATED RED BLOOD CELLS 0 /100 WBC 0-0 (BEAKER) (test code = 413) NEUTROPHILS RELATIVE PERCENT 69 % (BEAKER) (test code = 429) LYMPHOCYTES RELATIVE PERCENT 19 % (BEAKER) (test code = 430) MONOCYTES RELATIVE PERCENT 8 % (BEAKER) (test code = 431) EOSINOPHILS RELATIVE PERCENT 1 % (BEAKER) (test code = 432) BASOPHILS RELATIVE PERCENT 1 % (BEAKER) (test code = 437) NEUTROPHILS ABSOLUTE COUNT 8.41 K/ L 1.78-5.38 H (BEAKER) (test code = 670) LYMPHOCYTES ABSOLUTE COUNT 2.35 K/ L 1.32-3.57 (BEAKER) (test code = 414) MONOCYTES ABSOLUTE COUNT (BEAKER) 1.03 K/ L 0.30-0.82 H (test code = 415) EOSINOPHILS ABSOLUTE COUNT 0.17 K/ L 0.04-0.54 (BEAKER) (test code = 416) BASOPHILS ABSOLUTE COUNT (BEAKER) 0.11 K/ L 0.01-0.08 H (test code = 417) IMMATURE GRANULOCYTES-RELATIVE 1.30 % 0.00-1.00 H PERCENT (BEAKER) (test code = 2801) CALCIUM, [id number] 05:33:27 Test Item Value Reference Range Interpretation Comments CALCIUM IONIZED (BEAKER) (test 1.04 mmol/L 1.12-1.27 L code = 698) PH, BLOOD (BEAKER) (test code = 7.47 1810) LACTIC ACID, [id number] 02:10:15 Test Item Value Reference Range Interpretation Comments LACTATE BLOOD VENOUS 1.96 mmol/L 0.50-2.00 Specime n slightly (2) (BEAKER) (test hemolyzed code = 2872) Heeler ID - [id number] 02:01:17 Test Item Value Reference Range Interpretation Comments PARTIAL THROMBOPLASTIN TIME 97.4 seconds 22.5-36.0 H (BEAKER) (test code = 760) BASIC METABOLIC [id number] 21:03:05 Test Item Value Reference Range Interpretation Comments SODIUM (BEAKER) 137 meq/L 136-145 (test code = 381) POTASSIUM 4.1 meq/L 3.5-5.1 (BEAKER) (test code = 379) CHLORIDE (BEAKER) 87 meq/L 98-107 L (test code = 382) CO2 (BEAKER) 37 meq/L 22-29 H (test code = 355) BLOOD UREA 41 mg/dL 7-21 H NITROGEN (BEAKER) (test code = 354) CREATININE 2.97 mg/dL 0.57-1.25 H (BEAKER) (test code = 358) GLUCOSE RANDOM 113 mg/dL 70-105 H (BEAKER) (test code = 652) CALCIUM (BEAKER) 9.4 mg/dL 8.4-10.2 (test code = 697) EGFR (BEAKER) 25 Interpretatio n of eGFR (test code = mL/min/1.73 values Stage De scription 1092) sq m Result G1 Nelida l or high >=90 G2 Mildly decreased 60-89 G3a Mildl y to moderately 45-5 9 G3b Moderately to s everely 30-44 G4 Sever ly decreased 15-29 G5 Kidney failure <15Repo rted eGFR is based on the CKD-EPI 2020 equation t hat does not use a race coefficientEsti mated GFR is not as accur ate as Creatinine Carol licha in predicting glom erular filtration rate . Estimated GFR is not appl icable for dialysis patien ts Heeler ID - [id number] 21:00:44 Test Item Value Reference Range Interpretation Comments MAGNESIUM (BEAKER) (test code = 2.3 mg/dL 1.6-2.6 627) Heeler ID - ADMINLACTIC ACID, [id number] 20:56:39 Test Item Value Reference Range Interpretation Comments LACTATE BLOOD VENOUS 1.42 mmol/L 0.50-2.00 Specime n slightly (2) (BEAKER) (test hemolyzed code = 2872) Heeler ID - ADMINCALCIUM, [id number] 20:36:48 Test Item Value Reference Range Interpretation Comments CALCIUM IONIZED (BEAKER) (test 1.10 mmol/L 1.12-1.27 L code = 698) PH, BLOOD (BEAKER) (test code = 7.48 1810) [id number] 19:02:07 Test Item Value Reference Range Interpretation Comments PARTIAL THROMBOPLASTIN TIME 58.8 seconds 22.5-36.0 H (BEAKER) (test code = 760) LACTIC ACID, [id number] 17:16:25 Test Item Value Reference Range Interpretation Comments LACTATE BLOOD VENOUS 1.86 mmol/L 0.50-2.00 Specime n slightly (2) (BEAKER) (test hemolyzed code = 9832) Heeler ID - ADMINBASIC METABOLIC [id number] 12:53:49 Test Item Value Reference Range Interpretation Comments SODIUM (BEAKER) 132 meq/L 136-145 L (test code = 381) POTASSIUM 3.5 meq/L 3.5-5.1 (BEAKER) (test code = 379) CHLORIDE (BEAKER) 84 meq/L 98-107 L (test code = 382) CO2 (BEAKER) 37 meq/L 22-29 H (test code = 355) BLOOD UREA 41 mg/dL 7-21 H NITROGEN (BEAKER) (test code = 354) CREATININE 2.97 mg/dL 0.57-1.25 H (BEAKER) (test code = 358) GLUCOSE RANDOM 143 mg/dL 70-105 H (BEAKER) (test code = 652) CALCIUM (BEAKER) 9.7 mg/dL 8.4-10.2 (test code = 697) EGFR (BEAKER) 25 Interpretatio n of eGFR (test code = mL/min/1.73 values Stage De scription 1092) sq m Result G1 Nelida l or high >=90 G2 Mildly decreased 60-89 G3a Mildl y to moderately 45-5 9 G3b Moderately to s everely 30-44 G4 Severl y decreased 15-29 G5 Kidney failure <15Reported eGF R is based on the CKD-EPI 2020 equation that d oes not use a race coefficientEsti mated GFR is not as accur ate as Creatinine Carol hurt in predicting glom erular filtration rate . Estimated GFR is not appl icable for dialysis patien ts Heeler ID - [id number] 12:52:49 Test Item Value Reference Range Interpretation Comments MAGNESIUM (BEAKER) (test code = 2.4 mg/dL 1.6-2.6 627) Heeler ID - ADMINLACTIC ACID, [id number] 12:43:10 Test Item Value Reference Range Interpretation Comments LACTATE BLOOD VENOUS (2) (BEAKER) 2.01 mmol/L 0.50-2.00 H (test code = 2872) Heeler ID - [id number] 12:38:07 Test Item Value Reference Range Interpretation Comments PARTIAL THROMBOPLASTIN TIME 55.1 seconds 22.5-36.0 H (BEAKER) (test code = 760) CALCIUM, [id number] 12:20:02 Test Item Value Reference Range Interpretation Comments CALCIUM IONIZED (BEAKER) (test 1.09 mmol/L 1.12-1.27 L code = 698) PH, BLOOD (BEAKER) (test code = 7.47 1810) LACTIC ACID, [id number] 08:36:53 Test Item Value Reference Range Interpretation Comments LACTATE BLOOD VENOUS 1.93 mmol/L 0.50-2.00 Specime n slightly (2) (BEAKER) (test hemolyzed code = 2872) Heeler ID - ADMINBLOOD GAS, [id number] 08:31:30 Test Item Value Reference Range Interpretation Comments PH VENOUS (BEAKER) (test code = 7.52 7.32-7.42 H 701) PCO2 VENOUS (BEAKER) (test code = 47 mm Hg 41-51 755) PO2 VENOUS (BEAKER) (test code = 85 mm Hg 25-40 H 702) O2 SATURATION VENOUS (BEAKER) 97.2 % 40.0-70.0 H (test code = 703) HCO3 VENOUS (BEAKER) (test code = 38 mmol/L 21-29 H 705) BASE EXCESS VENOUS (BEAKER) (test 13.3 mmol/L -2.0-3.0 H code = 704) PATIENT TEMPERATURE (BEAKER) 37.0 (test code = 1818) FIO2 (BEAKER) (test code = 1819) 21.0 BASIC METABOLIC [id number] 06:09:30 Test Item Value Reference Range Interpretation Comments SODIUM (BEAKER) 137 meq/L 136-145 (test code = 381) POTASSIUM 3.7 meq/L 3.5-5.1 (BEAKER) (test code = 379) CHLORIDE (BEAKER) 86 meq/L 98-107 L (test code = 382) CO2 (BEAKER) 36 meq/L 22-29 H (test code = 355) BLOOD UREA 40 mg/dL 7-21 H NITROGEN (BEAKER) (test code = 354) CREATININE 3.09 mg/dL 0.57-1.25 H (BEAKER) (test code = 358) GLUCOSE RANDOM 141 mg/dL 70-105 H (BEAKER) (test code = 652) CALCIUM (BEAKER) 9.7 mg/dL 8.4-10.2 (test code = 697) EGFR (BEAKER) 24 Interpretatio n of eGFR (test code = mL/min/1.73 values Stage De scription 1092) sq m Result G1 Nelida l or high >=90 G2 Mildly decreased 60-89 G3a Mildl y to moderately 45-5 9 G3b Moderately to s everely 30-44 G4 Severl y decreased 15-29 G5 Kidney failure <15Reported eGF R is based on the CKD-EPI 2020 equation that d oes not use a race coefficientEsti mated GFR is not as accur ate as Creatinine Carol licha in predicting glom erular filtration rate . Estimated GFR is not appl icable for dialysis patien ts Heeler ID - [id number] 06:00:36 Test Item Value Reference Range Interpretation Comments MAGNESIUM (BEAKER) (test code = 2.4 mg/dL 1.6-2.6 627) Heeler ID - [id number] 06:00:36 Test Item Value Reference Range Interpretation Comments PHOSPHORUS (BEAKER) (test code = 5.6 mg/dL 2.3-4.7 H 604) Heeler ID - ADMINHEPATIC FUNCTION [id number] 06:00:36 Test Item Value Reference Range Interpretation Comments TOTAL PROTEIN (BEAKER) (test code = 6.9 gm/dL 6.0-8.3 770) ALBUMIN (BEAKER) (test code = 1145) 3.7 g/dL 3.5-5.0 BILIRUBIN TOTAL (BEAKER) (test code 0.9 mg/dL 0.2-1.2 = 377) BILIRUBIN DIRECT (BEAKER) (test 0.4 mg/dL 0.1-0.5 code = 706) ALKALINE PHOSPHATASE (BEAKER) (test 61 U/L 40-150 code = 346) AST (SGOT) (BEAKER) (test code = 39 U/L 5-34 H 353) ALT (SGPT) (BEAKER) (test code = 10 U/L 6-55 347) Heeler ID - ADMINDIGOXIN [id number] 05:51:13 Test Item Value Reference Range Interpretation Comments DIGOXIN LEVEL (BEAKER) (test code 0.83 ng/mL 0.80-2.00 = 669) Heeler ID - [id number] 05:27:03 Test Item Value Reference Range Interpretation Comments PARTIAL THROMBOPLASTIN TIME 60.6 seconds 22.5-36.0 H (BEAKER) (test code = 760) CBC W/PLT COUNT & AUTO [id number] 05:04:31 Test Item Value Reference Range Interpretation Comments WHITE BLOOD CELL COUNT (BEAKER) 12.3 K/ L 3.5-10.5 H (test code = 775) RED BLOOD CELL COUNT (BEAKER) 4.61 M/ L 4.63-6.08 L (test code = 761) HEMOGLOBIN (BEAKER) (test code = 11.5 GM/DL 13.7-17.5 L 410) HEMATOCRIT (BEAKER) (test code = 37.3 % 40.1-51.0 L 411) MEAN CORPUSCULAR VOLUME (BEAKER) 81 fL 79-92 (test code = 753) MEAN CORPUSCULAR HEMOGLOBIN 24.9 pg 25.7-32.2 L (BEAKER) (test code = 751) MEAN CORPUSCULAR HEMOGLOBIN CONC 30.8 GM/DL 32.3-36.5 L (BEAKER) (test code = 752) RED CELL DISTRIBUTION WIDTH 14.9 % 11.6-14.4 H (BEAKER) (test code = 412) PLATELET COUNT (BEAKER) (test 337 K/CU MM 150-450 code = 756) MEAN PLATELET VOLUME (BEAKER) 9.7 fL 9.4-12.4 (test code = 754) NUCLEATED RED BLOOD CELLS 0 /100 WBC 0-0 (BEAKER) (test code = 413) NEUTROPHILS RELATIVE PERCENT 69 % (BEAKER) (test code = 429) LYMPHOCYTES RELATIVE PERCENT 20 % (BEAKER) (test code = 430) MONOCYTES RELATIVE PERCENT 7 % (BEAKER) (test code = 431) EOSINOPHILS RELATIVE PERCENT 2 % (BEAKER) (test code = 432) BASOPHILS RELATIVE PERCENT 1 % (BEAKER) (test code = 437) NEUTROPHILS ABSOLUTE COUNT 8.47 K/ L 1.78-5.38 H (BEAKER) (test code = 670) LYMPHOCYTES ABSOLUTE COUNT 2.44 K/ L 1.32-3.57 (BEAKER) (test code = 414) MONOCYTES ABSOLUTE COUNT (BEAKER) 0.91 K/ L 0.30-0.82 H (test code = 415) EOSINOPHILS ABSOLUTE COUNT 0.19 K/ L 0.04-0.54 (BEAKER) (test code = 416) BASOPHILS ABSOLUTE COUNT (BEAKER) 0.10 K/ L 0.01-0.08 H (test code = 417) IMMATURE GRANULOCYTES-RELATIVE 1.20 % 0.00-1.00 H PERCENT (BEAKER) (test code = 2801) LACTIC ACID, [id number] 05:01:35 Test Item Value Reference Range Interpretation Comments LACTATE BLOOD VENOUS 2.18 mmol/L 0.50-2.00 H Specime n slightly (2) (BEAKER) (test hemolyzed code = 2872) Heeler ID - ADMINCALCIUM, [id number] 04:51:47 Test Item Value Reference Range Interpretation Comments CALCIUM IONIZED (BEAKER) (test 1.06 mmol/L 1.12-1.27 L code = 698) PH, BLOOD (BEAKER) (test code = 7.50 1810) LACTIC ACID, [id number] 01:04:57 Test Item Value Reference Range Interpretation Comments LACTATE BLOOD VENOUS (2) (BEAKER) 1.69 mmol/L 0.50-2.00 (test code = 2872) Heeler ID - ADMINBASIC METABOLIC [id number] 21:24:06 Test Item Value Reference Range Interpretation Comments SODIUM (BEAKER) 138 meq/L 136-145 (test code = 381) POTASSIUM 3.3 meq/L 3.5-5.1 L (BEAKER) (test code = 379) CHLORIDE (BEAKER) 87 meq/L 98-107 L (test code = 382) CO2 (BEAKER) 37 meq/L 22-29 H (test code = 355) BLOOD UREA 42 mg/dL 7-21 H NITROGEN (BEAKER) (test code = 354) CREATININE 2.94 mg/dL 0.57-1.25 H (BEAKER) (test code = 358) GLUCOSE RANDOM 152 mg/dL 70-105 H (BEAKER) (test code = 652) CALCIUM (BEAKER) 9.9 mg/dL 8.4-10.2 (test code = 697) EGFR (BEAKER) 26 Interpretatio n of eGFR (test code = mL/min/1.73 values Stage De scription 1092) sq m Result G1 Nelida l or high >=90 G2 Mildly decreased 60-89 G3a Mildl y to moderately 45-5 9 G3b Moderately to s everely 30-44 G4 Severl y decreased 15-29 G5 Kidney failure <15Reported eGF R is based on the CKD-EPI 2020 equation that d oes not use a race coefficientEsti mated GFR is not as accur ate as Creatinine Carol licha in predicting glom erular filtration rate . Estimated GFR is not appl icable for dialysis patien ts Heeler ID - [id number] 21:23:26 Test Item Value Reference Range Interpretation Comments MAGNESIUM (BEAKER) (test code = 2.2 mg/dL 1.6-2.6 627) Heeler ID - [id number] 21:22:07 Test Item Value Reference Range Interpretation Comments PARTIAL THROMBOPLASTIN TIME 47.1 seconds 22.5-36.0 H (BEAKER) (test code = 760) LACTIC ACID, [id number] 21:18:45 Test Item Value Reference Range Interpretation Comments LACTATE BLOOD VENOUS 2.41 mmol/L 0.50-2.00 H Specime n slightly (2) (BEAKER) (test hemolyzed code = 2872) Heeler ID - ADMINCALCIUM, [id number] 21:13:05 Test Item Value Reference Range Interpretation Comments CALCIUM IONIZED (BEAKER) (test 1.09 mmol/L 1.12-1.27 L code = 698) PH, BLOOD (BEAKER) (test code = 7.48 1810) LACTIC ACID, [id number] 16:50:22 Test Item Value Reference Range Interpretation Comments LACTATE BLOOD VENOUS (2) (BEAKER) 2.37 mmol/L 0.50-2.00 H (test code = 2872) Heeler ID - [id number] 13:36:05 Test Item Value Reference Range Interpretation Comments PARTIAL THROMBOPLASTIN TIME 42.4 seconds 22.5-36.0 H (BEAKER) (test code = 760) BASIC METABOLIC [id number] 12:17:19 Test Item Value Reference Range Interpretation Comments SODIUM (BEAKER) 137 meq/L 136-145 (test code = 381) POTASSIUM 4.2 meq/L 3.5-5.1 Specimen modera tely (BEAKER) (test hemolyzed code = 379) CHLORIDE (BEAKER) 91 meq/L 98-107 L (test code = 382) CO2 (BEAKER) 35 meq/L 22-29 H (test code = 355) BLOOD UREA 39 mg/dL 7-21 H NITROGEN (BEAKER) (test code = 354) CREATININE 2.73 mg/dL 0.57-1.25 H Specimen modera tely (BEAKER) (test hemolyzed code = 358) GLUCOSE RANDOM 160 mg/dL 70-105 H (BEAKER) (test code = 652) CALCIUM (BEAKER) 9.6 mg/dL 8.4-10.2 (test code = 697) EGFR (BEAKER) 28 Interpretatio n of eGFR (test code = mL/min/1.73 values Stage De scription 1092) sq m Result G1 Nelida l or high >=90 G2 Mildly decreased 60-89 G3a Mildl y to moderately 45-5 9 G3b Moderately to s everely 30-44 G4 Severl y decreased 15-29 G5 Kidney failure <15Reported eGF R is based on the CKD-EPI 2020 equation that d oes not use a race coefficientEsti mated GFR is not as accur ate as Creatinine Carol licha in predicting glom erular filtration rate . Estimated GFR is not appl icable for dialysis patien ts Heeler ID - [id number] 12:16:38 Test Item Value Reference Range Interpretation Comments MAGNESIUM (BEAKER) 2.3 mg/dL 1.6-2.6 Specimen moderately (test code = 627) hemolyzed Heeler ID - ADMINLACTIC ACID, [id number] 12:11:43 Test Item Value Reference Range Interpretation Comments LACTATE BLOOD VENOUS 2.12 mmol/L 0.50-2.00 H Specime n slightly (2) (BEAKER) (test hemolyzed code = 4752) Heeler ID - ADMINCALCIUM, [id number] 12:04:12 Test Item Value Reference Range Interpretation Comments CALCIUM IONIZED (BEAKER) (test 1.09 mmol/L 1.12-1.27 L code = 698) PH, BLOOD (BEAKER) (test code = 7.50 2660) BLOOD GAS, [id number] 12:04:03 Test Item Value Reference Range Interpretation Comments PH VENOUS (BEAKER) (test code = 7.50 7.32-7.42 H 701) PCO2 VENOUS (BEAKER) (test code = 44 mm Hg 41-51 755) PO2 VENOUS (BEAKER) (test code = 53 mm Hg 25-40 H 702) O2 SATURATION VENOUS (BEAKER) 89.8 % 40.0-70.0 H (test code = 703) HCO3 VENOUS (BEAKER) (test code = 33 mmol/L 21-29 H 705) BASE EXCESS VENOUS (BEAKER) (test 9.0 mmol/L -2.0-3.0 H code = 704) PATIENT TEMPERATURE (BEAKER) (test 37.0 code = 1818) BLOOD [id number] 11:00:18 Test Item Value Reference Range Interpretation Comments CULTURE (BEAKER) (test No growth in 5 days code = 1095) The specimen volume collected for this blood culture was below the optimum (10 mL per bottle or 20 mL total). Use of lower volumes may adversely affect recovery and/or detection times of some organisms.BLOOD [id number] 11:00:17 Test Item Value Reference Range Interpretation Comments CULTURE (BEAKER) (test No growth in 5 days code = 1095) DIGOXIN [id number] 04:47:11 Test Item Value Reference Range Interpretation Comments DIGOXIN LEVEL (BEAKER) (test code 0.73 ng/mL 0.80-2.00 L = 669) Heeler ID - ADMINCALCIUM, [id number] 04:31:49 Test Item Value Reference Range Interpretation Comments CALCIUM IONIZED (BEAKER) (test 1.09 mmol/L 1.12-1.27 L code = 698) PH, BLOOD (BEAKER) (test code = 7.48 1810) HEPATIC FUNCTION [id number] 04:24:50 Test Item Value Reference Range Interpretation Comments TOTAL PROTEIN (BEAKER) (test code = 6.8 gm/dL 6.0-8.3 770) ALBUMIN (BEAKER) (test code = 1145) 3.6 g/dL 3.5-5.0 BILIRUBIN TOTAL (BEAKER) (test code 0.7 mg/dL 0.2-1.2 = 377) BILIRUBIN DIRECT (BEAKER) (test 0.4 mg/dL 0.1-0.5 code = 706) ALKALINE PHOSPHATASE (BEAKER) (test 64 U/L 40-150 code = 346) AST (SGOT) (BEAKER) (test code = 52 U/L 5-34 H 353) ALT (SGPT) (BEAKER) (test code = 19 U/L 6-55 347) Heeler ID - ADMINBASIC METABOLIC [id number] 04:24:49 Test Item Value Reference Range Interpretation Comments SODIUM (BEAKER) 138 meq/L 136-145 (test code = 381) POTASSIUM 3.5 meq/L 3.5-5.1 (BEAKER) (test code = 379) CHLORIDE (BEAKER) 92 meq/L 98-107 L (test code = 382) CO2 (BEAKER) 34 meq/L 22-29 H (test code = 355) BLOOD UREA 40 mg/dL 7-21 H NITROGEN (BEAKER) (test code = 354) CREATININE 2.61 mg/dL 0.57-1.25 H (BEAKER) (test code = 358) GLUCOSE RANDOM 132 mg/dL 70-105 H (BEAKER) (test code = 652) CALCIUM (BEAKER) 9.9 mg/dL 8.4-10.2 (test code = 697) EGFR (BEAKER) 30 Interpretatio n of eGFR (test code = mL/min/1.73 values Stage De scription 1092) sq m Result G1 Nelida l or high >=90 G2 Mildly decreased 60-89 G3a Mildl y to moderately 45-5 9 G3b Moderately to s everely 30-44 G4 Severl y decreased 15-29 G5 Kidney failure <15Reported eGF R is based on the CKD-EPI 2021 equation that d oes not use a race coefficientEsti mated GFR is not as accur ate as Creatinine Carol licha in predicting glom erular filtration rate . Estimated GFR is not appl icable for dialysis patien ts Heeler ID - [id number] 04:24:49 Test Item Value Reference Range Interpretation Comments MAGNESIUM (BEAKER) (test code = 2.4 mg/dL 1.6-2.6 627) Heeler ID - [id number] 04:24:49 Test Item Value Reference Range Interpretation Comments PHOSPHORUS (BEAKER) (test code = 5.9 mg/dL 2.3-4.7 H 604) Heeler ID - ADMINCBC W/PLT COUNT & AUTO [id number] 04:16:45 Test Item Value Reference Range Interpretation Comments WHITE BLOOD CELL COUNT (BEAKER) 12.9 K/ L 3.5-10.5 H (test code = 775) RED BLOOD CELL COUNT (BEAKER) 4.81 M/ L 4.63-6.08 (test code = 761) HEMOGLOBIN (BEAKER) (test code = 12.0 GM/DL 13.7-17.5 L 410) HEMATOCRIT (BEAKER) (test code = 38.9 % 40.1-51.0 L 411) MEAN CORPUSCULAR VOLUME (BEAKER) 81 fL 79-92 (test code = 753) MEAN CORPUSCULAR HEMOGLOBIN 24.9 pg 25.7-32.2 L (BEAKER) (test code = 751) MEAN CORPUSCULAR HEMOGLOBIN CONC 30.8 GM/DL 32.3-36.5 L (BEAKER) (test code = 752) RED CELL DISTRIBUTION WIDTH 14.8 % 11.6-14.4 H (BEAKER) (test code = 412) PLATELET COUNT (BEAKER) (test 290 K/CU MM 150-450 code = 756) MEAN PLATELET VOLUME (BEAKER) 9.8 fL 9.4-12.4 (test code = 754) NUCLEATED RED BLOOD CELLS 0 /100 WBC 0-0 (BEAKER) (test code = 413) NEUTROPHILS RELATIVE PERCENT 72 % (BEAKER) (test code = 429) LYMPHOCYTES RELATIVE PERCENT 16 % (BEAKER) (test code = 430) MONOCYTES RELATIVE PERCENT 8 % (BEAKER) (test code = 431) EOSINOPHILS RELATIVE PERCENT 2 % (BEAKER) (test code = 432) BASOPHILS RELATIVE PERCENT 1 % (BEAKER) (test code = 437) NEUTROPHILS ABSOLUTE COUNT 9.29 K/ L 1.78-5.38 H (BEAKER) (test code = 670) LYMPHOCYTES ABSOLUTE COUNT 2.04 K/ L 1.32-3.57 (BEAKER) (test code = 414) MONOCYTES ABSOLUTE COUNT (BEAKER) 1.06 K/ L 0.30-0.82 H (test code = 415) EOSINOPHILS ABSOLUTE COUNT 0.19 K/ L 0.04-0.54 (BEAKER) (test code = 416) BASOPHILS ABSOLUTE COUNT (BEAKER) 0.09 K/ L 0.01-0.08 H (test code = 417) IMMATURE GRANULOCYTES-RELATIVE 1.90 % 0.00-1.00 H PERCENT (BEAKER) (test code = 2801) LACTIC ACID, [id number] 04:16:10 Test Item Value Reference Range Interpretation Comments LACTATE BLOOD VENOUS (2) (BEAKER) 2.00 mmol/L 0.50-2.00 (test code = 2872) Heeler ID - [id number] 04:15:07 Test Item Value Reference Range Interpretation Comments PARTIAL THROMBOPLASTIN TIME 41.1 seconds 22.5-36.0 H (BEAKER) (test code = 760) BASIC METABOLIC [id number] 20:51:03 Test Item Value Reference Range Interpretation Comments SODIUM (BEAKER) 138 meq/L 136-145 (test code = 381) POTASSIUM 3.8 meq/L 3.5-5.1 (BEAKER) (test code = 379) CHLORIDE (BEAKER) 94 meq/L 98-107 L (test code = 382) CO2 (BEAKER) 31 meq/L 22-29 H (test code = 355) BLOOD UREA 39 mg/dL 7-21 H NITROGEN (BEAKER) (test code = 354) CREATININE 2.63 mg/dL 0.57-1.25 H (BEAKER) (test code = 358) GLUCOSE RANDOM 131 mg/dL 70-105 H (BEAKER) (test code = 652) CALCIUM (BEAKER) 9.7 mg/dL 8.4-10.2 (test code = 697) EGFR (BEAKER) 29 Interpretatio n of eGFR (test code = mL/min/1.73 values Stage De scription 1092) sq m Result G1 Nelida l or high >=90 G2 Mildly decreased 60-89 G3a Mild ly to moderately 45-5 9 G3b Moderately to s everely 30-44 G4 Severl y decreased 15-29 G5 Kidney failure <15Reported eGF R is based on the CKD-EPI 1 equation that d oes not use a race coefficientEsti mated GFR is not as accur ate as Creatinine Carol licha in predicting glom erular filtration rate . Estimated GFR is not appl icable for dialysis patien ts Heeler ID - [id number] 20:50:30 Test Item Value Reference Range Interpretation Comments MAGNESIUM (BEAKER) (test code = 2.6 mg/dL 1.6-2.6 627) Heeler ID - AAHAMIDLACTIC ACID, [id number] 20:43:36 Test Item Value Reference Range Interpretation Comments LACTATE BLOOD VENOUS (2) (BEAKER) 1.64 mmol/L 0.50-2.00 (test code = 2872) Heeler ID - [id number] 20:43:15 Test Item Value Reference Range Interpretation Comments PARTIAL THROMBOPLASTIN TIME 34.6 seconds 22.5-36.0 (BEAKER) (test code = 760) CALCIUM, [id number] 20:27:13 Test Item Value Reference Range Interpretation Comments CALCIUM IONIZED (BEAKER) (test 1.08 mmol/L 1.12-1.27 L code = 698) PH, BLOOD (BEAKER) (test code = 7.55 1810) CREATINE KINASE (CK)2022-12-01 16:15:22 Test Item Value Reference Range Interpretation Comments CREATINE KINASE TOTAL (BEAKER) (test 53 U/L 29-200 code = 380) Heeler ID - ADMINPROTEIN, RANDOM [id number] 16:02:17 Test Item Value Reference Range Interpretation Comments PROTEIN, URINE (BEAKER) (test code = < mg/dL 0-14 1569) Heeler ID - ADMINCREATININE, RANDOM [id number] 16:01:31 Test Item Value Reference Range Interpretation Comments CREATININE URINE (BEAKER) (test 28.2 mg/dL code = 375) Reference Range: No NormalsOperator ID - ADMINSODIUM, RANDOM [id number] 16:01:31 Test Item Value Reference Range Interpretation Comments SODIUM URINE (BEAKER) (test code = 88 meq/L 243) Reference Range: No NormalsOperator ID - ADMINCHLORIDE, RANDOM [id number] 16:01:30 Test Item Value Reference Range Interpretation Comments CHLORIDE URINE (BEAKER) (test code 112 meq/L 20-330 = 682) Reference Range: No NormalsOperator ID - ADMINURINALYSIS W/ MICROSCOPIC 2022-12-01 15:56:55 Test Item Value Reference Range Interpretation Comments COLOR (BEAKER) (test code Colorless = 470) CLARITY (BEAKER) (test Clear code = 469) SPECIFIC GRAVITY UA 1.010 1.001-1.035 (BEAKER) (test code = 468) PH UA (BEAKER) (test code 6.0 5.0-8.0 = 467) PROTEIN UA (BEAKER) (test Negative Negative code = 464) GLUCOSE UA (BEAKER) (test Negative Negative code = 365) KETONES UA (BEAKER) (test Negative Negative code = 371) BILIRUBIN UA (BEAKER) Negative Negative (test code = 462) BLOOD UA (BEAKER) (test Negative Negative code = 461) NITRITE UA (BEAKER) (test Negative Negative code = 465) LEUKOCYTE ESTERASE UA Negative Negative (BEAKER) (test code = 466) UROBILINOGEN UA (BEAKER) 0.2 0.2-1.0 (test code = 463) RBC UA (BEAKER) (test code 0 /HPF = 519) WBC UA (BEAKER) (test code 1 /HPF = 520) MUCUS (BEAKER) (test code Rare = 1574) HYALINE CASTS (BEAKER) 5 /LPF (test code = 514) SOURCE(BEAKER) (test code Urine, Clean Catch = 2795) Heeler ID - [auto]Heeler ID - techVITAMIN [id number] 13:23:30 Test Item Value Reference Range Interpretation Comments VITAMIN B12 (BEAKER) (test code = 517 pg/mL 213-816 774) Heeler ID - [id number] 13:23:30 Test Item Value Reference Range Interpretation Comments FERRITIN (BEAKER) (test code = 398.09 ng/mL 5.00-275.00 H 361) Heeler ID - [id number] 12:57:30 Test Item Value Reference Range Interpretation Comments PARTIAL THROMBOPLASTIN TIME 36.9 seconds 22.5-36.0 H (BEAKER) (test code = 760) [id number] 12:56:31 Test Item Value Reference Range Interpretation Comments MAGNESIUM (BEAKER) (test code = 2.5 mg/dL 1.6-2.6 627) Heeler ID - AAHAMIDBASIC METABOLIC [id number] 12:56:30 Test Item Value Reference Range Interpretation Comments SODIUM (BEAKER) 139 meq/L 136-145 (test code = 381) POTASSIUM 4.2 meq/L 3.5-5.1 (BEAKER) (test code = 379) CHLORIDE (BEAKER) 98 meq/L 98-107 (test code = 382) CO2 (BEAKER) 28 meq/L 22-29 (test code = 355) BLOOD UREA 37 mg/dL 7-21 H NITROGEN (BEAKER) (test code = 354) CREATININE 2.41 mg/dL 0.57-1.25 H (BEAKER) (test code = 358) GLUCOSE RANDOM 137 mg/dL 70-105 H (BEAKER) (test code = 652) CALCIUM (BEAKER) 9.8 mg/dL 8.4-10.2 (test code = 697) EGFR (BEAKER) 33 Interpretatio n of eGFR (test code = mL/min/1.73 values Stage De scription 1092) sq m Result G1 Nelida l or high >=90 G2 Mildly decreased 60-89 G3a Mildl y to moderately 45-5 9 G3b Moderately to s everely 30-44 G4 Severl y decreased 15-29 G5 Kidney failure <15Reported eGF R is based on the CKD-EPI 2020 equation that d oes not use a race coefficientEsti mated GFR is not as accur ate as Creatinine Carol licha in predicting glom erular filtration rate . Estimated GFR is not appl icable for dialysis patien ts Heeler ID - AAHAMIDLACTIC ACID, [id number] 12:55:46 Test Item Value Reference Range Interpretation Comments LACTATE BLOOD VENOUS 2.22 mmol/L 0.50-2.00 H Specime n moderately (2) (BEAKER) (test hemolyzed code = 2872) Heeler ID - AAHAMIDIRON, TIBC, % SAT. (WITHOUT FERRITIN)2022-12-01 12:54:48 Test Item Value Reference Range Interpretation Comments IRON (BEAKER) (test code = 547) 46.0 ug/dL 40.0-160.0 TOTAL IRON BINDING CAPACITY 373 ug/dL 250-450 (BEAKER) (test code = 769) IRON % SATURATION (2) (BEAKER) 12 % 20-55 L (test code = 2590) Heeler ID - AAHAMIDCALCIUM, [id number] 12:46:11 Test Item Value Reference Range Interpretation Comments CALCIUM IONIZED (BEAKER) (test 1.13 mmol/L 1.12-1.27 code = 698) PH, BLOOD (BEAKER) (test code = 7.50 1810) HEPATIC FUNCTION [id number] 05:46:30 Test Item Value Reference Range Interpretation Comments TOTAL PROTEIN (BEAKER) (test code = 6.4 gm/dL 6.0-8.3 770) ALBUMIN (BEAKER) (test code = 1145) 3.4 g/dL 3.5-5.0 L BILIRUBIN TOTAL (BEAKER) (test code 0.9 mg/dL 0.2-1.2 = 377) BILIRUBIN DIRECT (BEAKER) (test 0.4 mg/dL 0.1-0.5 code = 706) ALKALINE PHOSPHATASE (BEAKER) (test 63 U/L 40-150 code = 346) AST (SGOT) (BEAKER) (test code = 92 U/L 5-34 H 353) ALT (SGPT) (BEAKER) (test code = 50 U/L 6-55 347) Heeler ID - MARCOBASIC METABOLIC [id number] 05:46:29 Test Item Value Reference Range Interpretation Comments SODIUM (BEAKER) 135 meq/L 136-145 L (test code = 381) POTASSIUM 3.3 meq/L 3.5-5.1 L (BEAKER) (test code = 379) CHLORIDE (BEAKER) 96 meq/L 98-107 L (test code = 382) CO2 (BEAKER) 29 meq/L 22-29 (test code = 355) BLOOD UREA 35 mg/dL 7-21 H NITROGEN (BEAKER) (test code = 354) CREATININE 2.23 mg/dL 0.57-1.25 H (BEAKER) (test code = 358) GLUCOSE RANDOM 147 mg/dL 70-105 H (BEAKER) (test code = 652) CALCIUM (BEAKER) 9.0 mg/dL 8.4-10.2 (test code = 697) EGFR (BEAKER) 36 Interpretatio n of eGFR (test code = mL/min/1.73 values Stage De scription 1092) sq m Result G1 Nelida l or high >=90 G2 Mildly decreased 60-89 G3a Mildl y to moderately 45-5 9 G3b Moderately to s everely 30-44 G4 Severl y decreased 15-29 G5 Kidney failure <15Reported eGF R is based on the CKD-EPI 2020 equation that d oes not use a race coefficientEsti mated GFR is not as accur ate as Creatinine Carol hurt in predicting glom erular filtration rate . Estimated GFR is not appl icable for dialysis patien ts Heeler ID - [id number] 05:46:29 Test Item Value Reference Range Interpretation Comments MAGNESIUM (BEAKER) (test code = 2.1 mg/dL 1.6-2.6 627) Heeler ID - [id number] 05:46:29 Test Item Value Reference Range Interpretation Comments PHOSPHORUS (BEAKER) (test code = 4.2 mg/dL 2.3-4.7 604) Heeler ID - MARCODIGOXIN [id number] 05:21:41 Test Item Value Reference Range Interpretation Comments DIGOXIN LEVEL (BEAKER) (test code 0.56 ng/mL 0.80-2.00 L = 669) Heeler ID - MARCOLACTIC ACID, [id number] 04:59:18 Test Item Value Reference Range Interpretation Comments LACTATE BLOOD VENOUS (2) (BEAKER) 1.61 mmol/L 0.50-2.00 (test code = 2872) Heeler ID - MARCOCBC W/PLT COUNT & AUTO [id number] 04:50:13 Test Item Value Reference Range Interpretation Comments WHITE BLOOD CELL COUNT (BEAKER) 10.5 K/ L 3.5-10.5 (test code = 775) RED BLOOD CELL COUNT (BEAKER) 4.45 M/ L 4.63-6.08 L (test code = 761) HEMOGLOBIN (BEAKER) (test code = 11.2 GM/DL 13.7-17.5 L 410) HEMATOCRIT (BEAKER) (test code = 36.0 % 40.1-51.0 L 411) MEAN CORPUSCULAR VOLUME (BEAKER) 81 fL 79-92 (test code = 753) MEAN CORPUSCULAR HEMOGLOBIN 25.2 pg 25.7-32.2 L (BEAKER) (test code = 751) MEAN CORPUSCULAR HEMOGLOBIN CONC 31.1 GM/DL 32.3-36.5 L (BEAKER) (test code = 752) RED CELL DISTRIBUTION WIDTH 14.6 % 11.6-14.4 H (BEAKER) (test code = 412) PLATELET COUNT (BEAKER) (test 273 K/CU MM 150-450 code = 756) MEAN PLATELET VOLUME (BEAKER) 9.4 fL 9.4-12.4 (test code = 754) NUCLEATED RED BLOOD CELLS 0 /100 WBC 0-0 (BEAKER) (test code = 413) NEUTROPHILS RELATIVE PERCENT 65 % (BEAKER) (test code = 429) LYMPHOCYTES RELATIVE PERCENT 18 % (BEAKER) (test code = 430) MONOCYTES RELATIVE PERCENT 13 % (BEAKER) (test code = 431) EOSINOPHILS RELATIVE PERCENT 3 % (BEAKER) (test code = 432) BASOPHILS RELATIVE PERCENT 1 % (BEAKER) (test code = 437) NEUTROPHILS ABSOLUTE COUNT 6.75 K/ L 1.78-5.38 H (BEAKER) (test code = 670) LYMPHOCYTES ABSOLUTE COUNT 1.85 K/ L 1.32-3.57 (BEAKER) (test code = 414) MONOCYTES ABSOLUTE COUNT (BEAKER) 1.32 K/ L 0.30-0.82 H (test code = 415) EOSINOPHILS ABSOLUTE COUNT 0.30 K/ L 0.04-0.54 (BEAKER) (test code = 416) BASOPHILS ABSOLUTE COUNT (BEAKER) 0.08 K/ L 0.01-0.08 (test code = 417) IMMATURE GRANULOCYTES-RELATIVE 1.50 % 0.00-1.00 H PERCENT (BEAKER) (test code = 2801) CALCIUM, [id number] 04:44:32 Test Item Value Reference Range Interpretation Comments CALCIUM IONIZED (BEAKER) (test 1.05 mmol/L 1.12-1.27 L code = 698) PH, BLOOD (BEAKER) (test code = 7.48 1810) BASIC METABOLIC [id number] 21:30:12 Test Item Value Reference Range Interpretation Comments SODIUM (BEAKER) 135 meq/L 136-145 L (test code = 381) POTASSIUM 3.5 meq/L 3.5-5.1 (BEAKER) (test code = 379) CHLORIDE (BEAKER) 95 meq/L 98-107 L (test code = 382) CO2 (BEAKER) 28 meq/L 22-29 (test code = 355) BLOOD UREA 37 mg/dL 7-21 H NITROGEN (BEAKER) (test code = 354) CREATININE 2.32 mg/dL 0.57-1.25 H (BEAKER) (test code = 358) GLUCOSE RANDOM 174 mg/dL 70-105 H (BEAKER) (test code = 652) CALCIUM (BEAKER) 9.2 mg/dL 8.4-10.2 (test code = 697) EGFR (BEAKER) 34 Interpretatio n of eGFR (test code = mL/min/1.73 values Stage De scription 1092) sq m Result G1 Nelida l or high >=90 G2 Mildly decreased 60-89 G3a Mildl y to moderately 45-5 9 G3b Moderately to s everely 30-44 G4 Severl y decreased 15-29 G5 Kidney failure <15Reported eGF R is based on the CKD-EPI 2020 equation that d oes not use a race coefficientEsti mated GFR is not as accur ate as Creatinine Carol hurt in predicting glom erular filtration rate . Estimated GFR is not appl icable for dialysis patien ts Heeler ID - [id number] 21:30:12 Test Item Value Reference Range Interpretation Comments MAGNESIUM (BEAKER) (test code = 2.3 mg/dL 1.6-2.6 627) Heeler ID - ADMINLACTIC ACID, [id number] 21:25:04 Test Item Value Reference Range Interpretation Comments LACTATE BLOOD VENOUS (2) (BEAKER) 2.05 mmol/L 0.50-2.00 H (test code = 2872) Heeler ID - ADMINCALCIUM, [id number] 21:08:56 Test Item Value Reference Range Interpretation Comments CALCIUM IONIZED (BEAKER) (test 1.12 mmol/L 1.12-1.27 code = 698) PH, BLOOD (BEAKER) (test code = 7.48 1810) HIGH SENSITIVITY TROPONIN [id number] 12:46:55 Test Item Value Reference Range Interpretation Comments HIGH SENSITIVITY TROPONIN I (test 92 pg/ml <=35 H code = 5649842) Heeler ID - Sam COMMERCIAL LITIGATION PARALEGAL STAT High Sensitivity Troponin-I results should be used in conjunction with other diagnostic information such as ECG, clinical observations and information, and patientsymptoms to aid in the diagnosis of HI. [id number] 12:39:24 Test Item Value Reference Range Interpretation Comments MAGNESIUM (BEAKER) 2.1 mg/dL 1.6-2.6 Specimen slightly (test code = 627) hemolyzed Heeler ID - MARCOBASIC METABOLIC [id number] 12:39:24 Test Item Value Reference Range Interpretation Comments SODIUM (BEAKER) 137 meq/L 136-145 (test code = 381) POTASSIUM 3.4 meq/L 3.5-5.1 L Specimen slight ly (BEAKER) (test hemolyzed code = 379) CHLORIDE (BEAKER) 97 meq/L 98-107 L (test code = 382) CO2 (BEAKER) 28 meq/L 22-29 (test code = 355) BLOOD UREA 31 mg/dL 7-21 H NITROGEN (BEAKER) (test code = 354) CREATININE 2.35 mg/dL 0.57-1.25 H Specimen slight ly (BEAKER) (test hemolyzed code = 358) GLUCOSE RANDOM 171 mg/dL 70-105 H (BEAKER) (test code = 652) CALCIUM (BEAKER) 9.4 mg/dL 8.4-10.2 (test code = 697) EGFR (BEAKER) 34 Interpretatio n of eGFR (test code = mL/min/1.73 values Stage De scription 1092) sq m Result G1 Nelida l or high >=90 G2 Mildly decreased 60-89 G3a Mildl y to moderately 45- 59 G3b Moderately to s everely 30-44 G4 Severl y decreased 15-29 G5 Kidney failure <15Reported eGF R is based on the CKD-EPI 1 equation that d oes not use a race coefficientEsti mated GFR is not as accur ate as Creatinine Carol licha in predicting glom erular filtration rate . Estimated GFR is not appl icable for dialysis patien ts Heeler ID - MARCOLACTIC ACID, [id number] 12:36:19 Test Item Value Reference Range Interpretation Comments LACTATE BLOOD VENOUS 2.56 mmol/L 0.50-2.00 H Specime n slightly (2) (BEAKER) (test hemolyzed code = 0455) Heeler ID - MARCOCALCIUM, [id number] 12:10:42 Test Item Value Reference Range Interpretation Comments CALCIUM IONIZED (BEAKER) (test 1.12 mmol/L 1.12-1.27 code = 698) PH, BLOOD (BEAKER) (test code = 7.46 1810) DIGOXIN [id number] 04:28:04 Test Item Value Reference Range Interpretation Comments DIGOXIN LEVEL (BEAKER) (test code 0.52 ng/mL 0.80-2.00 L = 669) Heeler ID - MARCOHIGH SENSITIVITY TROPONIN [id number] 03:30:21 Test Item Value Reference Range Interpretation Comments HIGH SENSITIVITY TROPONIN I (test 103 pg/ml <=35 H code = 8434856) Heeler ID - MARCLizete COMMERCIAL LITIGATION PARALEGAL STAT High Sensitivity Troponin-I results should be used in conjunction with other diagnostic information such as ECG, clinical observations and information, and patientsymptoms to aid in the diagnosis of HI. BASIC METABOLIC [id number] 03:24:15 Test Item Value Reference Range Interpretation Comments SODIUM (BEAKER) 136 meq/L 136-145 (test code = 381) POTASSIUM 3.5 meq/L 3.5-5.1 Specimen modera tely (BEAKER) (test hemolyzed code = 379) CHLORIDE (BEAKER) 96 meq/L 98-107 L (test code = 382) CO2 (BEAKER) 28 meq/L 22-29 (test code = 355) BLOOD UREA 31 mg/dL 7-21 H NITROGEN (BEAKER) (test code = 354) CREATININE 2.39 mg/dL 0.57-1.25 H Specimen modera tely (BEAKER) (test hemolyzed code = 358) GLUCOSE RANDOM 144 mg/dL 70-105 H (BEAKER) (test code = 652) CALCIUM (BEAKER) 9.0 mg/dL 8.4-10.2 (test code = 697) EGFR (BEAKER) 33 Interpretatio n of eGFR (test code = mL/min/1.73 values Stage De scription 1092) sq m Result G1 Nelida l or high >=90 G2 Mildly decreased 60-89 G3a Mildl y to moderately 45-5 9 G3b Moderately to s everely 30-44 G4 Severl y decreased 15-29 G5 Kidney failure <15Reported eGF R is based on the CKD-EPI 2020 equation that d oes not use a race coefficientEsti mated GFR is not as accur ate as Creatinine Carol hurt in predicting glom erular filtration rate . Estimated GFR is not appl icable for dialysis patien ts Heeler ID - MARCOHEPATIC FUNCTION [id number] 03:24:15 Test Item Value Reference Range Interpretation Comments TOTAL PROTEIN (BEAKER) 6.6 gm/dL 6.0-8.3 Speci men moderately (test code = 770) hemolyzed ALBUMIN (BEAKER) (test 3.3 g/dL 3.5-5.0 L Speci men moderately code = 1145) hemolyzed BILIRUBIN TOTAL 0.9 mg/dL 0.2-1.2 Specimen mod erately (BEAKER) (test code = hemoly zed 377) BILIRUBIN DIRECT 0.3 mg/dL 0.1-0.5 Specimen mo derately (BEAKER) (test code = hemoly zed 706) ALKALINE PHOSPHATASE 53 U/L 40-150 (BEAKER) (test code = 346) AST (SGOT) (BEAKER) 105 U/L 5-34 H Specimen moderately (test code = 353) hemolyzed ALT (SGPT) (BEAKER) 73 U/L 6-55 H Specimen moderately (test code = 347) hemolyzed Heeler ID - [id number] 03:24:14 Test Item Value Reference Range Interpretation Comments MAGNESIUM (BEAKER) 2.2 mg/dL 1.6-2.6 Specimen moderately (test code = 627) hemolyzed Heeler ID - [id number] 03:24:14 Test Item Value Reference Range Interpretation Comments PHOSPHORUS (BEAKER) 3.7 mg/dL 2.3-4.7 Specimen moderately (test code = 604) hemolyzed Heeler ID - MARCOLACTIC ACID, [id number] 03:07:12 Test Item Value Reference Range Interpretation Comments LACTATE BLOOD VENOUS (2) (BEAKER) 1.72 mmol/L 0.50-2.00 (test code = 2872) Heeler ID - MARCOCALCIUM, [id number] 03:06:22 Test Item Value Reference Range Interpretation Comments CALCIUM IONIZED (BEAKER) (test 1.09 mmol/L 1.12-1.27 L code = 698) PH, BLOOD (BEAKER) (test code = 7.46 1810) BLOOD GAS, [id number] 03:06:22 Test Item Value Reference Range Interpretation Comments PH VENOUS (BEAKER) (test code = 7.46 7.32-7.42 H 701) PCO2 VENOUS (BEAKER) (test code = 41 mm Hg 41-51 755) PO2 VENOUS (BEAKER) (test code = 48 mm Hg 25-40 H 702) O2 SATURATION VENOUS (BEAKER) 86.6 % 40.0-70.0 H (test code = 703) HCO3 VENOUS (BEAKER) (test code = 29 mmol/L 21-29 705) BASE EXCESS VENOUS (BEAKER) (test 4.6 mmol/L -2.0-3.0 H code = 704) PATIENT TEMPERATURE (BEAKER) (test 36.7 code = 1818) FIO2 (BEAKER) (test code = 1819) 36.0 CBC W/PLT COUNT & AUTO [id number] 02:57:05 Test Item Value Reference Range Interpretation Comments WHITE BLOOD CELL COUNT (BEAKER) 12.2 K/ L 3.5-10.5 H (test code = 775) RED BLOOD CELL COUNT (BEAKER) 4.54 M/ L 4.63-6.08 L (test code = 761) HEMOGLOBIN (BEAKER) (test code = 11.5 GM/DL 13.7-17.5 L 410) HEMATOCRIT (BEAKER) (test code = 36.3 % 40.1-51.0 L 411) MEAN CORPUSCULAR VOLUME (BEAKER) 80 fL 79-92 (test code = 753) MEAN CORPUSCULAR HEMOGLOBIN 25.3 pg 25.7-32.2 L (BEAKER) (test code = 751) MEAN CORPUSCULAR HEMOGLOBIN CONC 31.7 GM/DL 32.3-36.5 L (BEAKER) (test code = 752) RED CELL DISTRIBUTION WIDTH 14.6 % 11.6-14.4 H (BEAKER) (test code = 412) PLATELET COUNT (BEAKER) (test 232 K/CU MM 150-450 code = 756) MEAN PLATELET VOLUME (BEAKER) 9.5 fL 9.4-12.4 (test code = 754) NUCLEATED RED BLOOD CELLS 0 /100 WBC 0-0 (BEAKER) (test code = 413) NEUTROPHILS RELATIVE PERCENT 74 % (BEAKER) (test code = 429) LYMPHOCYTES RELATIVE PERCENT 13 % (BEAKER) (test code = 430) MONOCYTES RELATIVE PERCENT 11 % (BEAKER) (test code = 431) EOSINOPHILS RELATIVE PERCENT 1 % (BEAKER) (test code = 432) BASOPHILS RELATIVE PERCENT 1 % (BEAKER) (test code = 437) NEUTROPHILS ABSOLUTE COUNT 8.95 K/ L 1.78-5.38 H (BEAKER) (test code = 670) LYMPHOCYTES ABSOLUTE COUNT 1.59 K/ L 1.32-3.57 (BEAKER) (test code = 414) MONOCYTES ABSOLUTE COUNT (BEAKER) 1.32 K/ L 0.30-0.82 H (test code = 415) EOSINOPHILS ABSOLUTE COUNT 0.15 K/ L 0.04-0.54 (BEAKER) (test code = 416) BASOPHILS ABSOLUTE COUNT (BEAKER) 0.07 K/ L 0.01-0.08 (test code = 417) IMMATURE GRANULOCYTES-RELATIVE 0.90 % 0.00-1.00 PERCENT (BEAKER) (test code = 2801) US ABDOMEN [id number] 02:15:46 [facility] : 1975 Sex: MHistory: elevated LFTsAbdominal ultrasound dated 11/29/2022omparison: NoneComment: Real-time transabdominal ultrasound of the right upperquadrant abdomen was performed. Liver: 17.7 cm , mildly enlarged. Normal echogenicity. No focal lesions.Gallbladder: No gallstones. No gallbladder wall thickening. Noperi cholecystic fluid. No sonographic Muñiz's sign. Transversediameter: 2.5 cm.Biliary tree: No intrahepatic ductal dilatation. CBD: 4 mm.MPV: 11 mmPancreas: Unremarkable.Right kidney: 13.7 x 5.5 x 5.7 cm. Normal echogenicity.No ascites is present in the abdomen.The visualized abdominal aorta is normal in caliber. The IVC and Hepaticveins are patent.IMPRESSION:Impression: No ultrasound abnormality to explain the patient's elevated LFTs.Electronically Signed By: Vic Charles11/30/2022 02:18 CDTWorkstation Name: [id number] ACID, [id number] 20:56:44 Test Item Value Reference Range Interpretation Comments LACTATE BLOOD VENOUS (2) (BEAKER) 2.29 mmol/L 0.50-2.00 H (test code = 2872) Heeler ID - MARCOCALCIUM, [id number] 20:40:45 Test Item Value Reference Range Interpretation Comments CALCIUM IONIZED (BEAKER) (test 1.08 mmol/L 1.12-1.27 L code = 698) PH, BLOOD (BEAKER) (test code = 7.52 1810) HIGH SENSITIVITY TROPONIN [id number] 19:14:24 Test Item Value Reference Range Interpretation Comments HIGH SENSITIVITY TROPONIN I (test 97 pg/ml <=35 H code = 3829288) Heeler ID - YANAliza [employer] PARALEGAL STAT High Sensitivity Troponin-I results should be used in conjunction with other diagnostic information such as ECG, clinical observations and information, and patientsymptoms to aid in the diagnosis of HI. [id number] 18:27:56 Test Item Value Reference Range Interpretation Comments MAGNESIUM (BEAKER) 2.5 mg/dL 1.6-2.6 Specimen slightly (test code = 627) hemolyzed Heeler ID - ADMINBASIC METABOLIC [id number] 18:27:56 Test Item Value Reference Range Interpretation Comments SODIUM (BEAKER) 134 meq/L 136-145 L (test code = 381) POTASSIUM 4.0 meq/L 3.5-5.1 Specimen slight ly (BEAKER) (test hemolyzed code = 379) CHLORIDE (BEAKER) 91 meq/L 98-107 L (test code = 382) CO2 (BEAKER) 29 meq/L 22-29 (test code = 355) BLOOD UREA 32 mg/dL 7-21 H NITROGEN (BEAKER) (test code = 354) CREATININE 2.42 mg/dL 0.57-1.25 H Specimen slight ly (BEAKER) (test hemolyzed code = 358) GLUCOSE RANDOM 134 mg/dL 70-105 H (BEAKER) (test code = 652) CALCIUM (BEAKER) 9.7 mg/dL 8.4-10.2 (test code = 697) EGFR (BEAKER) 33 Interpretatio n of eGFR (test code = mL/min/1.73 values Stage De scription 1092) sq m Result G1 Nelida l or high >=90 G2 Mildly decreased 60-89 G3a Mildl y to moderately 45-5 9 G3b Moderately to s everely 30-44 G4 Severl y decreased 15-29 G5 Kidney failure <15Reported eGF R is based on the CKD-EPI 2020 equation that d oes not use a race coefficientEsti mated GFR is not as accur ate as Creatinine Carol licha in predicting glom erular filtration rate . Estimated GFR is not appl icable for dialysis patien ts Heeler ID - ADMINXR ABDOMEN/KUB 1 VIEW [id number] 17:44:27 [facility] : 1975 Sex: MAbdomen dated November 29omment: Abdomen was examined in the supine frontal position. Air isseen in the small and large bowel without dilatation to suggest mechanical obstruction or ileus. No mass, pathological calcification,or free air is present.IMPRESSION:Impression:No mechanical obstruction or ileus.Electronically Signed By: Allen Arambula11/29/2022 17:46 CDTWorkstation Name: [id number] [id number] 2022-11-29 16:52:47 Test Item Value Reference Range Interpretation Comments CULTURE (BEAKER) (test code No MRSA isolated = 1095) BASIC METABOLIC [id number] 12:51:04 Test Item Value Reference Range Interpretation Comments SODIUM (BEAKER) 136 meq/L 136-145 (test code = 381) POTASSIUM 2.8 meq/L 3.5-5.1 L (BEAKER) (test code = 379) CHLORIDE (BEAKER) 95 meq/L 98-107 L (test code = 382) CO2 (BEAKER) 27 meq/L 22-29 (test code = 355) BLOOD UREA 30 mg/dL 7-21 H NITROGEN (BEAKER) (test code = 354) CREATININE 2.23 mg/dL 0.57-1.25 H (BEAKER) (test code = 358) GLUCOSE RANDOM 138 mg/dL 70-105 H (BEAKER) (test code = 652) CALCIUM (BEAKER) 9.0 mg/dL 8.4-10.2 (test code = 697) EGFR (BEAKER) 36 Interpretatio n of eGFR (test code = mL/min/1.73 values Stage D escription 1092) sq m Result G1 Nelida l or high >=90 G2 Mildly decreased 60-89 G3a Mildl y to moderately 45-5 9 G3b Moderately to s everely 30-44 G4 Severl y decreased 15-29 G5 Kidney failure <15Reported eGF R is based on the CKD-EPI 2020 equation that d oes not use a race coefficientEsti mated GFR is not as accur ate as Creatinine Carol hurt in predicting glom erular filtration rate . Estimated GFR is not appl icable for dialysis patien ts Heeler ID - [id number] 12:51:04 Test Item Value Reference Range Interpretation Comments MAGNESIUM (BEAKER) (test code = 2.0 mg/dL 1.6-2.6 627) Heeler ID - MARCOCALCIUM, [id number] 12:20:54 Test Item Value Reference Range Interpretation Comments CALCIUM IONIZED (BEAKER) (test 1.05 mmol/L 1.12-1.27 L code = 698) PH, BLOOD (BEAKER) (test code = 7.48 1810) LACTIC ACID, [id number] 12:17:30 Test Item Value Reference Range Interpretation Comments LACTATE BLOOD VENOUS 2.08 mmol/L 0.50-2.00 H Specime n moderately (2) (BEAKER) (test hemolyzed code = 2872) Heeler ID - [id number] 10:41:59 Test Item Value Reference Range Interpretation Comments LIPASE (BEAKER) (test code = 749) 19 U/L 8-78 Heeler ID - MARCOXR CHEST 1 VIEW PORTABLE / [id number] 07:20:05 [facility] : 1975 Sex: MExam: XR CHEST 1 VIEW PORTABLE / BEDSIDEDate: 11/29/2022 7:19 AMIndication:pa catheterComparison: Yesterday.IMPRESSION:Lines/Tubes:NoneLungs and Pleura :The lungs are well inflated. No focal consolidation orpulmonary edema. No pleural effusions. No pneumothorax.Heart/Mediastinum:The cardiomediastinal silhouette is normal in size andcontour.Bones/Soft Tissues: No acute osseous abnormality.Upper abdomen: Unremarkable.Electronically Signed By: Kevin Gomez11/29/2022 07:22 CDTWorkstation Name: [id number] 06:29:53 Test Item Value Reference Range Interpretation Comments CULTURE A From Aerobic An d (BEAKER) (test Anaerobic Bot tles Same code = 1095) organism has be en isolated from cultures(s) of the same body site and collection date . Repeat identifi cation and susceptibil ity testing perform ed only after consultat ion with the [facility] microbiology laboratory.Refe r to previous cultur e of - Staphylococcus epidermidis GRAM STAIN From aerobic and RESULT (BEAKER) anaerobic (test code = bottles: gram 1123) positive cocci in clusters BLOOD [id number] 06:28:52 Test Item Value Reference Interpretation Comments Range CULTURE (BEAKER) STAPHYLOCOCCUS A From Aero bic And (test code = 1095) EPIDERMIDIS Anaerobic Bottles Staphylococcus epidermidis Clindamycin (test R code = 10) Erythromycin (test R code = 4) Linezolid (test code S = 40) Nitrofurantoin (test S code = 23) Oxacillin (test code S = 14) Rifampin (test code = S 43) Tetracycline (test R code = 2) Trimethoprim + S Sulfamethoxazole (test code = 47) Vancomycin (test code S = 13) GRAM STAIN RESULT From aerobic and (BEAKER) (test code = anaerobic bottles: 1123) gram positive cocci in clusters (CELLAVISION MANUAL DIFF)2022-11-29 05:32:43 Test Item Value Reference Range Interpretation Comments NEUTROPHILS - REL 77 % (CELLAVISION)(BEAKER) (test code = 2816) LYMPHOCYTES - REL 13 % (CELLAVISION)(BEAKER) (test code = 2817) MONOCYTES - REL 8 % (CELLAVISION)(BEAKER) (test code = 2818) ATYPICAL LYMPHOCYTES - REL 2 % 0-0 H (CELLAVISION)(BEAKER) (test code = 2829) NEUTROPHILS - ABS 9.09 K/ul 1.78-5.38 H (CELLAVISION)(BEAKER) (test code = 2830) LYMPHOCYTES - ABS 1.53 K/ul 1.32-3.57 (CELLAVISION)(BEAKER) (test code = 2831) MONOCYTES - ABS 0.94 K/uL 0.30-0.82 H (CELLAVISION)(BEAKER) (test code = 2832) ATYPICAL LYMPHOCYTES - ABS 0.24 K/uL 0.00-0.00 H (CELLAVISION)(BEAKER) (test code = 2858) TOTAL COUNTED (BEAKER) (test code = 100 1351) WBC MORPHOLOGY (BEAKER) (test code Normal = 487) GIANT PLATELETS (BEAKER) (test code Present = 313) POLYCHROMATOPHILLIC RBCS(BEAKER) 1+ few (test code = 478) ANISOCYTOSIS (BEAKER) (test code = 1+ few 961) MICROCYTES (BEAKER) (test code = 1+ few 965) POIKILOCYTES (BEAKER) (test code = 1+ few 966) SCHISTOCYTES (BEAKER) (test code = 1+ few 765) OVALOCYTES (BEAKER) (test code = 1+ few 477) DAX CELLS (BEAKER) (test code = 1+ few 474) ARTIFACT (CELLAVISION)(BEAKER) Present (test code = 3432) PLATELET CONCENTRATION Adequate (CELLAVISION)(BEAKER) (test code = 3438) Heeler ID - Hayley BrushMarkos comments: Slide comments:CBC W/PLT COUNT & AUTO [id number] 05:32:42 Test Item Value Reference Range Interpretation Comments WHITE BLOOD CELL COUNT (BEAKER) 11.8 K/ L 3.5-10.5 H (test code = 775) RED BLOOD CELL COUNT (BEAKER) 4.86 M/ L 4.63-6.08 (test code = 761) HEMOGLOBIN (BEAKER) (test code = 12.6 GM/DL 13.7-17.5 L 410) HEMATOCRIT (BEAKER) (test code = 38.4 % 40.1-51.0 L 411) MEAN CORPUSCULAR VOLUME (BEAKER) 79 fL 79-92 (test code = 753) MEAN CORPUSCULAR HEMOGLOBIN 25.9 pg 25.7-32.2 (BEAKER) (test code = 751) MEAN CORPUSCULAR HEMOGLOBIN CONC 32.8 GM/DL 32.3-36.5 (BEAKER) (test code = 752) RED CELL DISTRIBUTION WIDTH 15.0 % 11.6-14.4 H (BEAKER) (test code = 412) PLATELET COUNT (BEAKER) (test 237 K/CU MM 150-450 code = 756) MEAN PLATELET VOLUME (BEAKER) 9.8 fL 9.4-12.4 (test code = 754) NUCLEATED RED BLOOD CELLS 0 /100 WBC 0-0 (BEAKER) (test code = 413) DIGOXIN [id number] 05:03:48 Test Item Value Reference Range Interpretation Comments DIGOXIN LEVEL (BEAKER) (test code 0.56 ng/mL 0.80-2.00 L = 669) Heeler ID - MARCOHEPATIC FUNCTION [id number] 04:52:32 Test Item Value Reference Range Interpretation Comments TOTAL PROTEIN (BEAKER) (test code = 7.0 gm/dL 6.0-8.3 770) ALBUMIN (BEAKER) (test code = 1145) 3.8 g/dL 3.5-5.0 BILIRUBIN TOTAL (BEAKER) (test code 1.3 mg/dL 0.2-1.2 H = 377) BILIRUBIN DIRECT (BEAKER) (test 0.7 mg/dL 0.1-0.5 H code = 706) ALKALINE PHOSPHATASE (BEAKER) (test 60 U/L 40-150 code = 346) AST (SGOT) (BEAKER) (test code = 106 U/L 5-34 H 353) ALT (SGPT) (BEAKER) (test code = 88 U/L 6-55 H 347) Heeler ID - MARCOBASIC METABOLIC [id number] 04:52:31 Test Item Value Reference Range Interpretation Comments SODIUM (BEAKER) 133 meq/L 136-145 L (test code = 381) POTASSIUM 3.4 meq/L 3.5-5.1 L (BEAKER) (test code = 379) CHLORIDE (BEAKER) 91 meq/L 98-107 L (test code = 382) CO2 (BEAKER) 27 meq/L 22-29 (test code = 355) BLOOD UREA 27 mg/dL 7-21 H NITROGEN (BEAKER) (test code = 354) CREATININE 2.37 mg/dL 0.57-1.25 H (BEAKER) (test code = 358) GLUCOSE RANDOM 140 mg/dL 70-105 H (BEAKER) (test code = 652) CALCIUM (BEAKER) 9.7 mg/dL 8.4-10.2 (test code = 697) EGFR (BEAKER) 33 Interpretatio n of eGFR (test code = mL/min/1.73 values Stage De scription 1092) sq m Result G1 Nelida l or high >=90 G2 Mildly decreased 60-89 G3a Mildl y to moderately 45-5 9 G3b Moderately to s everely 30-44 G4 Severl y decreased 15-29 G5 Kidney failure <15Reported eGF R is based on the CKD-EPI 2020 equation that d oes not use a race coefficientEsti mated GFR is not as accur ate as Creatinine Carol hurt in predicting glom erular filtration rate . Estimated GFR is not appl icable for dialysis patien ts Heeler ID - [id number] 04:52:31 Test Item Value Reference Range Interpretation Comments MAGNESIUM (BEAKER) (test code = 2.3 mg/dL 1.6-2.6 627) Heeler ID - [id number] 04:52:31 Test Item Value Reference Range Interpretation Comments PHOSPHORUS (BEAKER) (test code = 6.0 mg/dL 2.3-4.7 H 604) Heeler ID - MARCOLACTIC ACID, [id number] 04:43:56 Test Item Value Reference Range Interpretation Comments LACTATE BLOOD VENOUS 2.05 mmol/L 0.50-2.00 H Specime n moderately (2) (BEAKER) (test hemolyzed code = 2872) Heeler ID - ADMINCALCIUM, [id number] 04:41:08 Test Item Value Reference Range Interpretation Comments CALCIUM IONIZED (BEAKER) (test 1.08 mmol/L 1.12-1.27 L code = 698) PH, BLOOD (BEAKER) (test code = 7.50 1810) [id number] 22:37:28 Test Item Value Reference Range Interpretation Comments PROCALCITONIN (BEAKER) (test code 1.12 ng/mL <0.05 H = 3036) SEPSIS RISK (ng/mL)Low: 0.05-0.50Intermediate: 0.51-2.00High: >=2.01BASIC METABOLIC [id number] 22:25:36 Test Item Value Reference Range Interpretation Comments SODIUM (BEAKER) 132 meq/L 136-145 L (test code = 381) POTASSIUM 3.4 meq/L 3.5-5.1 L (BEAKER) (test code = 379) CHLORIDE (BEAKER) 93 meq/L 98-107 L (test code = 382) CO2 (BEAKER) 24 meq/L 22-29 (test code = 355) BLOOD UREA 25 mg/dL 7-21 H NITROGEN (BEAKER) (test code = 354) CREATININE 2.06 mg/dL 0.57-1.25 H (BEAKER) (test code = 358) GLUCOSE RANDOM 152 mg/dL 70-105 H (BEAKER) (test code = 652) CALCIUM (BEAKER) 9.0 mg/dL 8.4-10.2 (test code = 697) EGFR (BEAKER) 39 Interpretatio n of eGFR (test code = mL/min/1.73 values Stage De scription 1092) sq m Result G1 Nelida l or high >=90 G2 Mildly decreased 60-89 G3a Mildl y to moderately 45-5 9 G3b Moderately to s everely 30-44 G4 Severl y decreased 15-29 G5 Kidne y failure <15Reported eGF R is based on the CKD-EPI 2020 equation that d oes not use a race coefficientEsti mated GFR is not as accur ate as Creatinine Carol licha in predicting glom erular filtration rate . Estimated GFR is not appl icable for dialysis patien ts Heeler ID - [id number] 21:19:50 Test Item Value Reference Range Interpretation Comments MAGNESIUM (BEAKER) 2.5 mg/dL 1.6-2.6 Specimen markedly (test code = 627) hemolyzed Heeler ID - mmVANCOMYCIN LEVEL, [id number] 21:17:06 Test Item Value Reference Range Interpretation Comments VANCOMYCIN TROUGH (BEAKER) (test 23.5 ug/mL 10.0-20.0 H code = 522) Heeler ID - mmLACTIC ACID, [id number] 21:16:04 Test Item Value Reference Range Interpretation Comments LACTATE BLOOD VENOUS 2.38 mmol/L 0.50-2.00 H Specime n markedly (2) (BEAKER) (test hemolyzed code = 2872) Heeler ID - mmCALCIUM, [id number] 21:00:28 Test Item Value Reference Range Interpretation Comments CALCIUM IONIZED (BEAKER) (test 1.03 mmol/L 1.12-1.27 L code = 698) PH, BLOOD (BEAKER) (test code = 7.50 1810) XR CHEST 1 VIEW PORTABLE / [id number] 19:31:43 [facility] : 1975 Sex: MEXAMINATION: XR CHEST 1 VIEW PORTABLE / BEDSIDE INDICATION: pa catheterCOMPARISON: November 26, 2022 FINDINGS:LINES/TUBES: Support lines and tubes unchanged. LUNGS: The lungs are well inflated. No focal airspace consolidation.PLEURA: No pleural effusion or pneumothorax.MEDIASTINUM: The cardiomediastinal silhouette is stable in size andshape.BONES/SOFT TISSUES: No acute osseous injury.ABDOMEN: No free air under the diaphragm.IMPRESSION:No significant interval change.Electronically Signed By: Avel Roberson11/28/2022 19:33 CDTWorkstation Name: [id number] ACID, [id number] 17:21:20 Test Item Value Reference Range Interpretation Comments LACTATE BLOOD VENOUS 2.25 mmol/L 0.50-2.00 H Specime n slightly (2) (BEAKER) (test hemolyzed code = 2872) Heeler ID - mmSPUTUM CULTURE + GRAM [id number] 15:26:30 Test Item Value Reference Range Interpretation Comments CULTURE (BEAKER) 4+ Normal respiratory (test code = 1095) can present GRAM STAIN RESULT 1+ WBCs (BEAKER) (test code = 1123) GRAM STAIN RESULT 0-5 epithelial cells (BEAKER) (test code = 79397) GRAM STAIN RESULT 1+ gram negative rods (BEAKER) (test code = 62417) GRAM STAIN RESULT 2+ gram positive rods (BEAKER) (test code = 256466) GRAM STAIN RESULT 1+ gram positive cocci (BEAKER) (test code = in pairs 718961) GRAM STAIN RESULT <1+ yeast (BEAKER) (test code = 628395) BASIC METABOLIC [id number] 12:59:35 Test Item Value Reference Range Interpretation Comments SODIUM (BEAKER) 137 meq/L 136-145 (test code = 381) POTASSIUM 4.4 meq/L 3.5-5.1 (BEAKER) (test code = 379) CHLORIDE (BEAKER) 98 meq/L 98-107 (test code = 382) CO2 (BEAKER) 24 meq/L 22-29 (test code = 355) BLOOD UREA 20 mg/dL 7-21 NITROGEN (BEAKER) (test code = 354) CREATININE 1.61 mg/dL 0.57-1.25 H (BEAKER) (test code = 358) GLUCOSE RANDOM 182 mg/dL 70-105 H (BEAKER) (test code = 652) CALCIUM (BEAKER) 9.8 mg/dL 8.4-10.2 (test code = 697) EGFR (BEAKER) 53 Interpretatio n of eGFR (test code = mL/min/1.73 values Stage De scription 1092) sq m Result G1 Nelida l or high >=90 G2 Mildly decreased 60-89 G3a Mildl y to moderately 45-5 9 G3b Moderately to s everely 30-44 G4 Severl y decreased 15-29 G5 Kidney failure <15Reported eGF R is based on the CKD-EPI 2020 equation that d oes not use a race coefficientEsti mated GFR is not as accur ate as Creatinine Carol licha in predicting glom erular filtration rate . Estimated GFR is not appl icable for dialysis patien ts Heeler ID - [id number] 12:59:06 Test Item Value Reference Range Interpretation Comments MAGNESIUM (BEAKER) (test code = 2.3 mg/dL 1.6-2.6 627) Heeler ID - mmLACTIC ACID, [id number] 12:54:55 Test Item Value Reference Range Interpretation Comments LACTATE BLOOD VENOUS 2.92 mmol/L 0.50-2.00 H Specime n slightly (2) (BEAKER) (test hemolyzed code = 0689) Heeler ID - mmCALCIUM, [id number] 12:44:55 Test Item Value Reference Range Interpretation Comments CALCIUM IONIZED (BEAKER) (test 1.07 mmol/L 1.12-1.27 L code = 698) PH, BLOOD (BEAKER) (test code = 7.45 1810) XR CHEST 1 VIEW PORTABLE / [id number] 12:19:12 [facility] : 1975 Sex: MXR CHEST 1 VIEW PORTABLE / BEDSIDEINDICATION: shortness of breathCOMPARISON: Prior day's examFINDINGS: Portable frontal view of the chest. IMPRESSION:Support Lines: Interval removal of right IJ PA catheter. Lungs and pleura: Increased interstitial thickening suggestive of mildpulmonary edema present. No new lung consolidation or large effusion. Nopneumothorax.Heart and mediastinum: Stable contours. Additional findings: None.Electronically Signed By: Shawn Isbell11/28/2022 12:21 CDTWorkstation Name: [id number] 05:34:20 Test Item Value Reference Range Interpretation Comments DIGOXIN LEVEL (BEAKER) (test code 0.43 ng/mL 0.80-2.00 L = 669) Heeler ID - [id number] 04:13:43 Test Item Value Reference Range Interpretation Comments MAGNESIUM (BEAKER) (test code = 2.3 mg/dL 1.6-2.6 627) Heeler ID - [id number] 04:13:43 Test Item Value Reference Range Interpretation Comments PHOSPHORUS (BEAKER) (test code = 4.4 mg/dL 2.3-4.7 604) Heeler ID - ADMINHEPATIC FUNCTION [id number] 04:13:43 Test Item Value Reference Range Interpretation Comments TOTAL PROTEIN (BEAKER) (test code = 6.6 gm/dL 6.0-8.3 770) ALBUMIN (BEAKER) (test code = 1145) 3.6 g/dL 3.5-5.0 BILIRUBIN TOTAL (BEAKER) (test code 1.1 mg/dL 0.2-1.2 = 377) BILIRUBIN DIRECT (BEAKER) (test 0.5 mg/dL 0.1-0.5 code = 706) ALKALINE PHOSPHATASE (BEAKER) (test 54 U/L 40-150 code = 346) AST (SGOT) (BEAKER) (test code = 28 U/L 5-34 353) ALT (SGPT) (BEAKER) (test code = 42 U/L 6-55 347) Heeler ID - ADMINBASIC METABOLIC [id number] 04:13:42 Test Item Value Reference Range Interpretation Comments SODIUM (BEAKER) 134 meq/L 136-145 L (test code = 381) POTASSIUM 3.3 meq/L 3.5-5.1 L (BEAKER) (test code = 379) CHLORIDE (BEAKER) 94 meq/L 98-107 L (test code = 382) CO2 (BEAKER) 28 meq/L 22-29 (test code = 355) BLOOD UREA 19 mg/dL 7-21 NITROGEN (BEAKER) (test code = 354) CREATININE 1.20 mg/dL 0.57-1.25 (BEAKER) (test code = 358) GLUCOSE RANDOM 133 mg/dL 70-105 H (BEAKER) (test code = 652) CALCIUM (BEAKER) 8.4 mg/dL 8.4-10.2 (test code = 697) EGFR (BEAKER) 75 Interpretatio n of eGFR (test code = mL/min/1.73 values Stage De scription 1092) sq m Result G1 Nelida l or high >=90 G2 Mildly decreased 60-89 G3a Mildl y to moderately 45-5 9 G3b Moderately to s everely 30-44 G4 Severl y decreased 15-29 G5 Kidney failure <15Reported eGF R is based on the CKD-EPI 2021 equation that d oes not use a race coefficientEsti mated GFR is not as accur ate as Creatinine Carol licha in predicting glom erular filtration rate . Estimated GFR is not appl icable for dialysis patien ts Heeler ID - ADMINLACTIC ACID, [id number] 03:44:46 Test Item Value Reference Range Interpretation Comments LACTATE BLOOD VENOUS (2) (BEAKER) 1.15 mmol/L 0.50-2.00 (test code = 2872) Heeler ID - ADMINCALCIUM, [id number] 03:41:04 Test Item Value Reference Range Interpretation Comments CALCIUM IONIZED (BEAKER) (test 1.05 mmol/L 1.12-1.27 L code = 698) PH, BLOOD (BEAKER) (test code = 7.41 1810) OXYGEN SATURATION, [id number] 03:40:14 Test Item Value Reference Range Interpretation Comments O2 SATURATION (MEASURED) (BEAKER) 74.2 % (test code = 1455) CBC W/PLT COUNT & AUTO [id number] 03:39:56 Test Item Value Reference Range Interpretation Comments WHITE BLOOD CELL COUNT (BEAKER) 8.8 K/ L 3.5-10.5 (test code = 775) RED BLOOD CELL COUNT (BEAKER) 4.63 M/ L 4.63-6.08 (test code = 761) HEMOGLOBIN (BEAKER) (test code = 11.7 GM/DL 13.7-17.5 L 410) HEMATOCRIT (BEAKER) (test code = 37.7 % 40.1-51.0 L 411) MEAN CORPUSCULAR VOLUME (BEAKER) 81 fL 79-92 (test code = 753) MEAN CORPUSCULAR HEMOGLOBIN 25.3 pg 25.7-32.2 L (BEAKER) (test code = 751) MEAN CORPUSCULAR HEMOGLOBIN CONC 31.0 GM/DL 32.3-36.5 L (BEAKER) (test code = 752) RED CELL DISTRIBUTION WIDTH 14.9 % 11.6-14.4 H (BEAKER) (test code = 412) PLATELET COUNT (BEAKER) (test 204 K/CU MM 150-450 code = 756) MEAN PLATELET VOLUME (BEAKER) 8.9 fL 9.4-12.4 L (test code = 754) NUCLEATED RED BLOOD CELLS 0 /100 WBC 0-0 (BEAKER) (test code = 413) NEUTROPHILS RELATIVE PERCENT 69 % (BEAKER) (test code = 429) LYMPHOCYTES RELATIVE PERCENT 15 % (BEAKER) (test code = 430) MONOCYTES RELATIVE PERCENT 13 % (BEAKER) (test code = 431) EOSINOPHILS RELATIVE PERCENT 1 % (BEAKER) (test code = 432) BASOPHILS RELATIVE PERCENT 1 % (BEAKER) (test code = 437) NEUTROPHILS ABSOLUTE COUNT 6.06 K/ L 1.78-5.38 H (BEAKER) (test code = 670) LYMPHOCYTES ABSOLUTE COUNT 1.29 K/ L 1.32-3.57 L (BEAKER) (test code = 414) MONOCYTES ABSOLUTE COUNT (BEAKER) 1.17 K/ L 0.30-0.82 H (test code = 415) EOSINOPHILS ABSOLUTE COUNT 0.07 K/ L 0.04-0.54 (BEAKER) (test code = 416) BASOPHILS ABSOLUTE COUNT (BEAKER) 0.07 K/ L 0.01-0.08 (test code = 417) IMMATURE GRANULOCYTES-RELATIVE 1.10 % 0.00-1.00 H PERCENT (BEAKER) (test code = 2801) [id number] 21:01:10 Test Item Value Reference Range Interpretation Comments MAGNESIUM (BEAKER) (test code = 2.2 mg/dL 1.6-2.6 627) Heeler ID - ADMINBASIC METABOLIC [id number] 21:01:09 Test Item Value Reference Range Interpretation Comments SODIUM (BEAKER) 132 meq/L 136-145 L (test code = 381) POTASSIUM 3.5 meq/L 3.5-5.1 (BEAKER) (test code = 379) CHLORIDE (BEAKER) 93 meq/L 98-107 L (test code = 382) CO2 (BEAKER) 27 meq/L 22-29 (test code = 355) BLOOD UREA 19 mg/dL 7-21 NITROGEN (BEAKER) (test code = 354) CREATININE 1.32 mg/dL 0.57-1.25 H (BEAKER) (test code = 358) GLUCOSE RANDOM 136 mg/dL 70-105 H (BEAKER) (test code = 652) CALCIUM (BEAKER) 8.6 mg/dL 8.4-10.2 (test code = 697) EGFR (BEAKER) 67 Interpretatio n of eGFR (test code = mL/min/1.73 values Stage De scription 1092) sq m Result G1 Nelida l or high >=90 G2 Mildly decreased 60-89 G3a Mildl y to moderately 45-5 9 G3b Moderately to s everely 30-44 G4 Severl y decreased 15-29 G5 Kidney failure <15Reported eGF R is based on the CKD-EPI 2020 equation that d oes not use a race coefficientEsti mated GFR is not as accur ate as Creatinine Carol hurt in predicting glom erular filtration rate . Estimated GFR is not appl icable for dialysis patien ts Heeler ID - ADMINLACTIC ACID, [id number] 20:57:30 Test Item Value Reference Range Interpretation Comments LACTATE BLOOD VENOUS (2) (BEAKER) 1.75 mmol/L 0.50-2.00 (test code = 2872) Heeler ID - ADMINCALCIUM, [id number] 20:41:22 Test Item Value Reference Range Interpretation Comments CALCIUM IONIZED (BEAKER) (test 1.05 mmol/L 1.12-1.27 L code = 698) PH, BLOOD (BEAKER) (test code = 7.47 1810) CALCIUM, [id number] 14:32:18 Test Item Value Reference Range Interpretation Comments CALCIUM IONIZED (BEAKER) (test 1.07 mmol/L 1.12-1.27 L code = 698) PH, BLOOD (BEAKER) (test code = 7.50 1810) BASIC METABOLIC [id number] 13:38:33 Test Item Value Reference Range Interpretation Comments SODIUM (BEAKER) 136 meq/L 136-145 (test code = 381) POTASSIUM 3.7 meq/L 3.5-5.1 (BEAKER) (test code = 379) CHLORIDE (BEAKER) 96 meq/L 98-107 L (test code = 382) CO2 (BEAKER) 28 meq/L 22-29 (test code = 355) BLOOD UREA 17 mg/dL 7-21 NITROGEN (BEAKER) (test code = 354) CREATININE 1.18 mg/dL 0.57-1.25 (BEAKER) (test code = 358) GLUCOSE RANDOM 111 mg/dL 70-105 H (BEAKER) (test code = 652) CALCIUM (BEAKER) 9.4 mg/dL 8.4-10.2 (test code = 697) EGFR (BEAKER) 77 Interpretatio n of eGFR (test code = mL/min/1.73 values Stage De scription 1092) sq m Result G1 Nelida l or high >=90 G2 Mildly decreased 60-89 G3a Mildl y to moderately 45-5 9 G3b Moderately to s everely 30-44 G4 Severl y decreased 15-29 G5 Kidney failure <15Reported eGF R is based on the CKD-EPI 2020 equation that d oes not use a race coefficientEsti mated GFR is not as accur ate as Creatinine Carol licha in predicting glom erular filtration rate . Estimated GFR is not appl icable for dialysis patien ts Heeler ID - MMOperator ID - MMOperator ID - MMOperator ID - MMOperator ID - MMOperator ID - MMOperator ID - MMOperator ID - MMSpecimen slightly icteric [id number] 13:38:32 Test Item Value Reference Range Interpretation Comments MAGNESIUM (BEAKER) (test code = 2.1 mg/dL 1.6-2.6 627) Heeler ID - MMOperator ID - MMLACTIC ACID, [id number] 12:25:11 Test Item Value Reference Range Interpretation Comments LACTATE BLOOD VENOUS 1.55 mmol/L 0.50-2.00 Specime n slightly (2) (BEAKER) (test hemolyzed code = 2872) Heeler ID - MMBLOOD CULTURE IDENTIFICATION [id number] 07:37:11 Test Item Value Reference Interpretation Comments Range MCR-1 (BEAKER) (test Non Applicable Not detected code = 7519327765) CTX-M (BEAKER) (test Non Applicable Not detected code = 1744020767) IMP ([place]) (test code = Non Applicable Not Detected 1337892041) KPC (BKR) (test code = Non Applicable Not detected 7399856156) NDM (BKR) (test code = Non Applicable Not Detected 1765515566) OXA-48-LIKE (BKR) Non Applicable Not Detected (test code = 7411138592) VIM (BKR) (test code = Non Applicable Not detected 7369837664) MEC A/C ([place]) (test Not detected Not detected Note: Ant imicrobial code = 0279958849) resistanc e can occur via multi ple mechanisms. A N ot Detected result for antimicrobial resistance gene (s) does not indica te antimicrobial susceptibility. Subculturing is required for species identification and susceptibility testing of isolates. MEC A/C AND MREJ Non Applicable Not Detected (MRSA) [place] (test code = 3155992282) VAN A/B (VANCOMYCIN Non Applicable Not detected RESISTANCE) (test code = 2876574730) ENTEROCOCCUS FAECALIS Not detected Not detected (BKR) (test code = 1069888623) ENTEROCOCCUS FAECIUM Not detected Not detected (BKR) (test code = 3344978547) LISTERIA MONOCYTOGENES Not detected Not detected (test code = 7380155) STAPHYLOCOCCUS (test Detected Not detected A code = 3763855) STAPHYLOCOCCUS AUREUS Not detected Not detected (test code = 0881666) STAPHYLOCOCCUS Detected Not detected A Methicillin EPIDERMIDIS ([place]) (test Susce ptible code = 6637934938) Staphyloc occus epidermidis(MS- CoNS ).First line therapy: Cefazo xu or Oxacillin (Oxacillin preferred if CN S involvement).No te: Possible contamination. The likelihood of pathogenicity i s increased if th e organism is observed in multiple blood cultures obtain ed from separate venipunctures STAPHYLOCOCCUS Not detected Not detected LUGDENENSIS (BKR) (test code = 2074686229) STREPTOCOCCUS (test Not detected Not detected code = 7202017) STREPTOCOCCUS Not detected Not detected AGALACTIAE (GROUP B) (test code = 4531219) STREPTOCOCCUS Not detected Not detected PNEUMONIAE (test code = 1558822) STREPTOCOCCUS PYOGENES Not detected Not detected (GROUP A) (test code = 1863355) ACINETOBACTER Not detected Not detected CALCOACETICUS-BAUMANNI I COMPLEX (BKR) (test code = 7712) BACTEROIDES FRAGILIS Not detected Not detected ([place]) (test code = 7392716593) ENTEROBACTERALES (test Not detected Not detected code = 4377574309) ENTEROBACTER CLOACOE Not detected Not detected COMPLEX (test code = 0372740) ESCHERICHIA COLI (test Not detected Not detected code = 5788269) KLEBSIELLA AEROGENES Not detected Not detected (BKR) (test code = 8618771229) KLEBSIELLA OXYTOCA Not detected Not detected (test code = 4254172) KLEBSIELLA PNEUMONIAE Not detected Not detected GROUP (test code = 7289605774) PROTEUS (test code = Not detected Not detected 4651867) SALMONELLA SPECIES Not detected Not detected ([place]) (test code = 1312313217) SERRATIA MARCESCENS Not detected Not detected (test code = 3913354) HAEMOPHILUS INFLUENZAE Not detected Not detected (test code = 6428070) NEISSERIA MENINGITIDIS Not detected Not detected (test code = 0373315) PSEUDOMONAS Not detected Not detected AERUGINOSA-BEAKER (test code = 6180602) STENOTROPHOMONAS Not detected Not detected MALTOPHILIA (BKR) (test code = 4489328544) DEZ ALBICANS (test Not detected Not detected code = 8845141) DEZ AURIS ([place]) Not detected Not detected (test code = 1894415582) DEZ GLABRATA (test Not detected Not detected code = 1403549) DEZ KRUSEI (test Not detected Not detected code = 6010029) DEZ PARAPSILOSIS Not detected Not detected (test code = 3506993) DEZ TROPICALIS Not detected Not detected (BKR) (test code = 9543547) CRYPTOCOCCUS Not detected Not detected NEOFORMANS/GATTII (test code = 1607918183) Other bacteria and resistance markers not targeted by this PCR panel cannot be excluded; therefore clinical correlation and follow up of serology, culture results, and other molecular studies is required. The results are not intended to be used as the sole means for clinical diagnosis or patient management decisions. This sample was tested at the [facility] using the [employer] Blood Culture ID Panel. It is FDA cleared and has been verified and approved by the [facility] for clinical use. This laboratory is CLIA-certified and College ofAmerican Pathologists (CAP)-accredited to perform high complexity testing.CALCIUM, [id number] 04:53:26 Test Item Value Reference Range Interpretation Comments CALCIUM IONIZED (BEAKER) (test 1.03 mmol/L 1.12-1.27 L code = 698) PH, BLOOD (BEAKER) (test code = 7.47 1810) HEPATIC FUNCTION [id number] 04:52:02 Test Item Value Reference Range Interpretation Comments TOTAL PROTEIN (BEAKER) (test code = 7.0 gm/dL 6.0-8.3 770) ALBUMIN (BEAKER) (test code = 1145) 3.9 g/dL 3.5-5.0 BILIRUBIN TOTAL (BEAKER) (test code 2.2 mg/dL 0.2-1.2 H = 377) BILIRUBIN DIRECT (BEAKER) (test 0.8 mg/dL 0.1-0.5 H code = 706) ALKALINE PHOSPHATASE (BEAKER) (test 58 U/L 40-150 code = 346) AST (SGOT) (BEAKER) (test code = 32 U/L 5-34 353) ALT (SGPT) (BEAKER) (test code = 42 U/L 6-55 347) Heeler ID - ADMINSpecimen slightly [id number] 04:52:01 Test Item Value Reference Range Interpretation Comments MAGNESIUM (BEAKER) (test code = 2.3 mg/dL 1.6-2.6 627) Heeler ID - [id number] 04:52:01 Test Item Value Reference Range Interpretation Comments PHOSPHORUS (BEAKER) (test code = 4.1 mg/dL 2.3-4.7 604) Heeler ID - ADMINBASIC METABOLIC [id number] 04:52:01 Test Item Value Reference Range Interpretation Comments SODIUM (BEAKER) 134 meq/L 136-145 L (test code = 381) POTASSIUM 3.4 meq/L 3.5-5.1 L (BEAKER) (test code = 379) CHLORIDE (BEAKER) 93 meq/L 98-107 L (test code = 382) CO2 (BEAKER) 30 meq/L 22-29 H (test code = 355) BLOOD UREA 21 mg/dL 7-21 NITROGEN (BEAKER) (test code = 354) CREATININE 1.10 mg/dL 0.57-1.25 (BEAKER) (test code = 358) GLUCOSE RANDOM 127 mg/dL 70-105 H (BEAKER) (test code = 652) CALCIUM (BEAKER) 9.5 mg/dL 8.4-10.2 (test code = 697) EGFR (BEAKER) 84 Interpretatio n of eGFR (test code = mL/min/1.73 values Stage De scription 1092) sq m Result G1 Nelida l or high >=90 G2 Mildly decreased 60-89 G3a Mildl y to moderately 45-5 9 G3b Moderately to s everely 30-44 G4 Severl y decreased 15-29 G5 Kidne y failure <15Reported eGF R is based on the CKD-EPI 2021 equation that d oes not use a race coefficientEsti mated GFR is not as accur ate as Creatinine Carol hurt in predicting glom erular filtration rate . Estimated GFR is not appl icable for dialysis patien ts Heeler ID - ADMINSpecimen slightly ictericCBC W/PLT COUNT & AUTO [id number] 04:49:53 Test Item Value Reference Range Interpretation Comments WHITE BLOOD CELL COUNT (BEAKER) 12.0 K/ L 3.5-10.5 H (test code = 775) RED BLOOD CELL COUNT (BEAKER) 4.89 M/ L 4.63-6.08 (test code = 761) HEMOGLOBIN (BEAKER) (test code = 12.6 GM/DL 13.7-17.5 L 410) HEMATOCRIT (BEAKER) (test code = 39.6 % 40.1-51.0 L 411) MEAN CORPUSCULAR VOLUME (BEAKER) 81 fL 79-92 (test code = 753) MEAN CORPUSCULAR HEMOGLOBIN 25.8 pg 25.7-32.2 (BEAKER) (test code = 751) MEAN CORPUSCULAR HEMOGLOBIN CONC 31.8 GM/DL 32.3-36.5 L (BEAKER) (test code = 752) RED CELL DISTRIBUTION WIDTH 14.8 % 11.6-14.4 H (BEAKER) (test code = 412) PLATELET COUNT (BEAKER) (test 251 K/CU MM 150-450 code = 756) MEAN PLATELET VOLUME (BEAKER) 9.2 fL 9.4-12.4 L (test code = 754) NUCLEATED RED BLOOD CELLS 0 /100 WBC 0-0 (BEAKER) (test code = 413) NEUTROPHILS RELATIVE PERCENT 79 % (BEAKER) (test code = 429) LYMPHOCYTES RELATIVE PERCENT 10 % (BEAKER) (test code = 430) MONOCYTES RELATIVE PERCENT 9 % (BEAKER) (test code = 431) EOSINOPHILS RELATIVE PERCENT 1 % (BEAKER) (test code = 432) BASOPHILS RELATIVE PERCENT 1 % (BEAKER) (test code = 437) NEUTROPHILS ABSOLUTE COUNT 9.52 K/ L 1.78-5.38 H (BEAKER) (test code = 670) LYMPHOCYTES ABSOLUTE COUNT 1.15 K/ L 1.32-3.57 L (BEAKER) (test code = 414) MONOCYTES ABSOLUTE COUNT (BEAKER) 1.09 K/ L 0.30-0.82 H (test code = 415) EOSINOPHILS ABSOLUTE COUNT 0.08 K/ L 0.04-0.54 (BEAKER) (test code = 416) BASOPHILS ABSOLUTE COUNT (BEAKER) 0.07 K/ L 0.01-0.08 (test code = 417) IMMATURE GRANULOCYTES-RELATIVE 0.90 % 0.00-1.00 PERCENT (BEAKER) (test code = 2801) DIGOXIN [id number] 04:47:55 Test Item Value Reference Range Interpretation Comments DIGOXIN LEVEL (BEAKER) (test code 0.63 ng/mL 0.80-2.00 L = 669) Heeler ID - MMOXYGEN SATURATION, [id number] 04:36:14 Test Item Value Reference Range Interpretation Comments O2 SATURATION (MEASURED) (BEAKER) 85.7 % (test code = 1455) LACTIC ACID, [id number] 04:27:07 Test Item Value Reference Range Interpretation Comments LACTATE BLOOD VENOUS (2) (BEAKER) 1.44 mmol/L 0.50-2.00 (test code = 2872) Heeler ID - [id number] 20:30:14 Test Item Value Reference Range Interpretation Comments MAGNESIUM (BEAKER) (test code = 2.0 mg/dL 1.6-2.6 627) Heeler ID - DBBASIC METABOLIC [id number] 20:30:13 Test Item Value Reference Range Interpretation Comments SODIUM (BEAKER) 135 meq/L 136-145 L (test code = 381) POTASSIUM 3.4 meq/L 3.5-5.1 L (BEAKER) (test code = 379) CHLORIDE (BEAKER) 93 meq/L 98-107 L (test code = 382) CO2 (BEAKER) 31 meq/L 22-29 H (test code = 355) BLOOD UREA 23 mg/dL 7-21 H NITROGEN (BEAKER) (test code = 354) CREATININE 1.28 mg/dL 0.57-1.25 H (BEAKER) (test code = 358) GLUCOSE RANDOM 140 mg/dL 70-105 H (BEAKER) (test code = 652) CALCIUM (BEAKER) 9.2 mg/dL 8.4-10.2 (test code = 697) EGFR (BEAKER) 70 Interpretatio n of eGFR (test code = mL/min/1.73 values Stage De scription 1092) sq m Result G1 Nelida l or high >=90 G2 Mildly decreased 60-89 G3a Mildl y to moderately 45-5 9 G3b Moderately to s everely 30-44 G4 Severl y decreased 15-29 G5 Kidney failure <15Reported eGF R is based on the CKD-EPI 2020 equation that d oes not use a race coefficientEsti mated GFR is not as accur ate as Creatinine Carol licha in predicting glom erular filtration rate . Estimated GFR is not appl icable for dialysis patien ts Heeler ID - DBCALCIUM, [id number] 20:27:44 Test Item Value Reference Range Interpretation Comments CALCIUM IONIZED (BEAKER) (test 1.04 mmol/L 1.12-1.27 L code = 698) PH, BLOOD (BEAKER) (test code = 7.46 1810) LACTIC ACID, [id number] 20:25:46 Test Item Value Reference Range Interpretation Comments LACTATE BLOOD VENOUS 1.74 mmol/L 0.50-2.00 Specime n slightly (2) (BEAKER) (test hemolyzed code = 2872) Heeler ID - DBXR CHEST 1 VIEW PORTABLE / [id number] 17:05:[facility] : 1975 Sex: MTECHNIQUE: Frontal view of the chest.INDICATION: swan.COMPARISON: 11/25/2022.FINDINGS:LINES/TUBES: Right IJ Parlin-Iqra catheter tip projects in over the leftmain pulmonary artery, as before. Persistent redundancy within the rightatrium.HEART AND MEDIASTINUM: Cardiomediastinal contour is within normallimits.LUNGS: The lungs are well inflated and clear. No consolidation orpulmonary edema.PLEURA: No pneumothorax. No significant pleural effusion.SOFT TISSUES AND BONES: Unremarkable.IMPRESSION:1. Right IJ Parlin Alex catheter with redundancy in the right atrium andtip projected over the left main pulmonary artery without significantinterval change.Electronically Signed By: German Irvin11/26/2022 17:07CDTWorkstation Name: [id number] ACID, VENOUS 2022-11-26 16:16:05 Test Item Value Reference Range Interpretation Comments LACTATE BLOOD VENOUS 2.55 mmol/L 0.50-2.00 H Specime n slightly (2) (BEAKER) (test hemolyzed code = 0402) Heeler ID - ADMINSTREP PNEUMONIAE [id number] 15:45:18 Test Item Value Reference Range Interpretation Comments STREP PNEUMONIAE Presumptive negative Presumptive negative ANTIGEN (BEAKER) for pneumococcal for pneumococcal (test code = 1615) pneumonia - see pneumonia - see comment commen Presumptive negative for pneumococcal pneumonia, suggesting no current or recent pneumococcal infection. Infection due to S. pneumoniae cannot be ruled out since the antigen present in the sample may be below the detection limit of the test.LEGIONELLA ANTIGEN, [id number] 15:44:49 Test Item Value Reference Range Interpretation Comments L. PNEUMOPHILA Negative - see Negative Negative fo r L. SEROGP 1 UR AG comment pneumophila (BEAKER) (test code serogrou p 1 antigen, = 1156) suggesting no r ecent or current infe ction with this serog roup. Legionellosis c annot be ruled out si nce other serogroup s and species may cau se disease. URINALYSIS W/ REFLEX URINE [id number] 12:31:41 Test Item Value Reference Range Interpretation Comments COLOR (BEAKER) (test code = 470) Colorless CLARITY (BEAKER) (test code = 469) Clear SPECIFIC GRAVITY UA (BEAKER) (test 1.009 1.001-1.035 code = 468) PH UA (BEAKER) (test code = 467) 6.5 5.0-8.0 PROTEIN UA (BEAKER) (test code = Negative Negative 464) GLUCOSE UA (BEAKER) (test code = Negative Negative 365) KETONES UA (BEAKER) (test code = Negative Negative 371) BILIRUBIN UA (BEAKER) (test code = Negative Negative 462) BLOOD UA (BEAKER) (test code = 461) Negative Negative NITRITE UA (BEAKER) (test code = Negative Negative 465) LEUKOCYTE ESTERASE UA (BEAKER) Negative Negative (test code = 466) UROBILINOGEN UA (BEAKER) (test code 0.2 0.2-1.0 = 463) RBC UA (BEAKER) (test code = 519) 0 /HPF WBC UA (BEAKER) (test code = 520) 0 /HPF MUCUS (BEAKER) (test code = 1574) Rare HYALINE CASTS (BEAKER) (test code = 3 /LPF 514) SOURCE(BEAKER) (test code = 2795) Heeler ID - [auto]Heeler ID - techHEMOGLOBIN [id number] 11:42:17 Test Item Value Reference Range Interpretation Comments HEMOGLOBIN A1C 6.0 % See_Comment H [Automated m essage] ELECTROPHORESIS (BEAKER) The system which (test code = 3811) generated this result transmitted ref erence range: <=5.6%. The reference range was not used to int erpret this result as normal/abnormal . "The A1c is measured using a NGSP-certified method. HbA1c value equal to or greater than 6.5% as thediagnosis cutoff for diabetes. An HbA1c value of 5.7- 6.4% indicates increased risk for diabetes (prediabetes)."Heeler ID - ADMBASIC METABOLIC [id number] 11:41:59 Test Item Value Reference Range Interpretation Comments SODIUM (BEAKER) 137 meq/L 136-145 (test code = 381) POTASSIUM 3.9 meq/L 3.5-5.1 (BEAKER) (test code = 379) CHLORIDE (BEAKER) 97 meq/L 98-107 L (test code = 382) CO2 (BEAKER) 31 meq/L 22-29 H (test code = 355) BLOOD UREA 18 mg/dL 7-21 NITROGEN (BEAKER) (test code = 354) CREATININE 1.18 mg/dL 0.57-1.25 (BEAKER) (test code = 358) GLUCOSE RANDOM 172 mg/dL 70-105 H (BEAKER) (test code = 652) CALCIUM (BEAKER) 9.1 mg/dL 8.4-10.2 (test code = 697) EGFR (BEAKER) 77 Interpretatio n of eGFR (test code = mL/min/1.73 values Stage De scription 1092) sq m Result G1 Nelida l or high >=90 G2 Mildly decreased 60-89 G3a Mildl y to moderately 45-5 9 G3b Moderately to s everely 30-44 G4 Severl y decreased 15-29 G5 Kidney failure <15Reported eGF R is based on the CKD-EPI 2020 equation that d oes not use a race coefficientEsti mated GFR is not as accur ate as Creatinine Carol hurt in predicting glom erular filtration rate . Estimated GFR is not appl icable for dialysis patien ts Heeler ID - [id number] 11:41:59 Test Item Value Reference Range Interpretation Comments MAGNESIUM (BEAKER) (test code = 2.2 mg/dL 1.6-2.6 627) Heeler ID - MMLACTIC ACID, [id number] 11:30:24 Test Item Value Reference Range Interpretation Comments LACTATE BLOOD VENOUS (2) (BEAKER) 2.26 mmol/L 0.50-2.00 H (test code = 2872) Heeler ID - MMCALCIUM, [id number] 11:19:09 Test Item Value Reference Range Interpretation Comments CALCIUM IONIZED (BEAKER) (test 1.10 mmol/L 1.12-1.27 L code = 698) PH, BLOOD (BEAKER) (test code = 7.41 1810) [id number] 10:18:51 Test Item Value Reference Range Interpretation Comments PROCALCITONIN (BEAKER) (test code 0.16 ng/mL <0.05 H = 3036) SEPSIS RISK (ng/mL)Low: 0.05-0.50Intermediate: 0.51-2.00High: >=2.01DIGOXIN [id number] 08:23:36 Test Item Value Reference Range Interpretation Comments DIGOXIN LEVEL (BEAKER) (test code 0.73 ng/mL 0.80-2.00 L = 669) Heeler ID - MMHEPATIC FUNCTION [id number] 04:34:00 Test Item Value Reference Range Interpretation Comments TOTAL PROTEIN (BEAKER) (test code = 7.6 gm/dL 6.0-8.3 770) ALBUMIN (BEAKER) (test code = 1145) 4.2 g/dL 3.5-5.0 BILIRUBIN TOTAL (BEAKER) (test code 1.8 mg/dL 0.2-1.2 H = 377) BILIRUBIN DIRECT (BEAKER) (test 0.8 mg/dL 0.1-0.5 H code = 706) ALKALINE PHOSPHATASE (BEAKER) (test 62 U/L 40-150 code = 346) AST (SGOT) (BEAKER) (test code = 22 U/L 5-34 353) ALT (SGPT) (BEAKER) (test code = 38 U/L 6-55 347) Heeler ID - [id number] 04:33:59 Test Item Value Reference Range Interpretation Comments PHOSPHORUS (BEAKER) (test code = 4.6 mg/dL 2.3-4.7 604) Heeler ID - ADMINBASIC METABOLIC [id number] 04:33:58 Test Item Value Reference Range Interpretation Comments SODIUM (BEAKER) 136 meq/L 136-145 (test code = 381) POTASSIUM 3.8 meq/L 3.5-5.1 (BEAKER) (test code = 379) CHLORIDE (BEAKER) 96 meq/L 98-107 L (test code = 382) CO2 (BEAKER) 27 meq/L 22-29 (test code = 355) BLOOD UREA 20 mg/dL 7-21 NITROGEN (BEAKER) (test code = 354) CREATININE 1.35 mg/dL 0.57-1.25 H (BEAKER) (test code = 358) GLUCOSE RANDOM 166 mg/dL 70-105 H (BEAKER) (test code = 652) CALCIUM (BEAKER) 9.4 mg/dL 8.4-10.2 (test code = 697) EGFR (BEAKER) 66 Interpretatio n of eGFR (test code = mL/min/1.73 values Stage De scription 1092) sq m Result G1 Nelida l or high >=90 G2 Mildly decreased 60-89 G3a Mildl y to moderately 45-5 9 G3b Moderately to s everely 30-44 G4 Severl y decreased 15-29 G5 Kidney failure <15Reported eGF R is based on the CKD-EPI 2021 equation that d oes not use a race coefficientEsti mated GFR is not as accur ate as Creatinine Carol hurt in predicting glom erular filtration rate . Estimated GFR is not appl icable for dialysis patien ts Heeler ID - [id number] 04:33:58 Test Item Value Reference Range Interpretation Comments MAGNESIUM (BEAKER) (test code = 2.3 mg/dL 1.6-2.6 627) Heeler ID - ADMINCALCIUM, [id number] 04:27:45 Test Item Value Reference Range Interpretation Comments CALCIUM IONIZED (BEAKER) (test 1.11 mmol/L 1.12-1.27 L code = 698) PH, BLOOD (BEAKER) (test code = 7.41 1810) OXYGEN SATURATION, [id number] 04:27:27 Test Item Value Reference Range Interpretation Comments O2 SATURATION (MEASURED) (BEAKER) 66.2 % (test code = 1455) LACTIC ACID, [id number] 04:20:42 Test Item Value Reference Range Interpretation Comments LACTATE BLOOD VENOUS 2.17 mmol/L 0.50-2.00 H Specime n slightly (2) (BEAKER) (test hemolyzed code = 2872) Heeler ID - MMCBC W/PLT COUNT & AUTO [id number] 04:10:00 Test Item Value Reference Range Interpretation Comments WHITE BLOOD CELL COUNT (BEAKER) 14.3 K/ L 3.5-10.5 H (test code = 775) RED BLOOD CELL COUNT (BEAKER) 5.51 M/ L 4.63-6.08 (test code = 761) HEMOGLOBIN (BEAKER) (test code = 13.8 GM/DL 13.7-17.5 410) HEMATOCRIT (BEAKER) (test code = 44.9 % 40.1-51.0 411) MEAN CORPUSCULAR VOLUME (BEAKER) 82 fL 79-92 (test code = 753) MEAN CORPUSCULAR HEMOGLOBIN 25.0 pg 25.7-32.2 L (BEAKER) (test code = 751) MEAN CORPUSCULAR HEMOGLOBIN CONC 30.7 GM/DL 32.3-36.5 L (BEAKER) (test code = 752) RED CELL DISTRIBUTION WIDTH 15.1 % 11.6-14.4 H (BEAKER) (test code = 412) PLATELET COUNT (BEAKER) (test 326 K/CU MM 150-450 code = 756) MEAN PLATELET VOLUME (BEAKER) 8.9 fL 9.4-12.4 L (test code = 754) NUCLEATED RED BLOOD CELLS 0 /100 WBC 0-0 (BEAKER) (test code = 413) NEUTROPHILS RELATIVE PERCENT 75 % (BEAKER) (test code = 429) LYMPHOCYTES RELATIVE PERCENT 15 % (BEAKER) (test code = 430) MONOCYTES RELATIVE PERCENT 9 % (BEAKER) (test code = 431) EOSINOPHILS RELATIVE PERCENT 1 % (BEAKER) (test code = 432) BASOPHILS RELATIVE PERCENT 1 % (BEAKER) (test code = 437) NEUTROPHILS ABSOLUTE COUNT 10.66 K/ L 1.78-5.38 H (BEAKER) (test code = 670) LYMPHOCYTES ABSOLUTE COUNT 2.12 K/ L 1.32-3.57 (BEAKER) (test code = 414) MONOCYTES ABSOLUTE COUNT (BEAKER) 1.27 K/ L 0.30-0.82 H (test code = 415) EOSINOPHILS ABSOLUTE COUNT 0.07 K/ L 0.04-0.54 (BEAKER) (test code = 416) BASOPHILS ABSOLUTE COUNT (BEAKER) 0.08 K/ L 0.01-0.08 (test code = 417) IMMATURE GRANULOCYTES-RELATIVE 0.60 % 0.00-1.00 PERCENT (BEAKER) (test code = 2801) BASIC METABOLIC [id number] 16:06:38 Test Item Value Reference Range Interpretation Comments SODIUM (BEAKER) 139 meq/L 136-145 (test code = 381) POTASSIUM 3.4 meq/L 3.5-5.1 L (BEAKER) (test code = 379) CHLORIDE (BEAKER) 99 meq/L 98-107 (test code = 382) CO2 (BEAKER) 28 meq/L 22-29 (test code = 355) BLOOD UREA 17 mg/dL 7-21 NITROGEN (BEAKER) (test code = 354) CREATININE 0.99 mg/dL 0.57-1.25 (BEAKER) (test code = 358) GLUCOSE RANDOM 165 mg/dL 70-105 H (BEAKER) (test code = 652) CALCIUM (BEAKER) 9.0 mg/dL 8.4-10.2 (test code = 697) EGFR (BEAKER) 95 Interpretatio n of eGFR (test code = mL/min/1.73 values Stage De scription 1092) sq m Result G1 Nelida l or high >=90 G2 Mildly decreased 60-89 G3a Mildl y to moderately 45-5 9 G3b Moderately to s everely 30-44 G4 Severl y decreased 15-29 G5 Kidney failure <15Reported eGF R is based on the CKD-EPI 2020 equation that d oes not use a race coefficientEsti mated GFR is not as accur ate as Creatinine Carol hurt in predicting glom erular filtration rate . Estimated GFR is not appl icable for dialysis patien ts Heeler ID - [id number] 16:06:38 Test Item Value Reference Range Interpretation Comments MAGNESIUM (BEAKER) (test code = 2.2 mg/dL 1.6-2.6 627) Heeler ID - DBCALCIUM, [id number] 15:48:33 Test Item Value Reference Range Interpretation Comments CALCIUM IONIZED (BEAKER) (test 1.08 mmol/L 1.12-1.27 L code = 698) PH, BLOOD (BEAKER) (test code = 7.48 1810) XR CHEST 1 VIEW PORTABLE / [id number] 11:23:49 [facility] : 1975 Sex: MEXAMINATION: XR CHEST 1 VIEW PORTABLE / BEDSIDE INDICATION: swan positionCOMPARISON: CXR of earlier the same day FINDINGS:LINES/TUBES: Right IJ Parlin-Iqra catheter continues to form a loop in theright atrium before terminating in the proximal right main pulmonaryartery. LUNGS: The lungs are well inflated. There is perihilar fullness andindistinctness of the pulmonary vasculature. No new focal airspaceconso lidation.PLEURA: No pleural effusion or pneumothorax.MEDIASTINUM: The cardiomediastinal silhouette is stable in size andshape.BONES/SOFT TISSUES: No acute osseous injury.ABDOMEN: No free air under the diaphragm.IMPRESSION:Right IJ Parlin-Iqra catheter continues to form a loop in the right atriumbefore te rminating in the proximal right main pulmonary artery.Central pulmonary vascular congestion. No new airspace consolidation.Electronically Signed By: Eloina Hernandez11/25/2022 11:25 CDTWorkstation Name: [id number], [id number] 11:15:25 Test Item Value Reference Range Interpretation Comments CALCIUM IONIZED (BEAKER) (test 1.01 mmol/L 1.12-1.27 L code = 698) PH, BLOOD (BEAKER) (test code = 7.48 1810) HEPATIC FUNCTION [id number] 09:40:25 Test Item Value Reference Range Interpretation Comments TOTAL PROTEIN (BEAKER) (test code = 6.2 gm/dL 6.0-8.3 770) ALBUMIN (BEAKER) (test code = 1145) 3.6 g/dL 3.5-5.0 BILIRUBIN TOTAL (BEAKER) (test code 1.7 mg/dL 0.2-1.2 H = 377) BILIRUBIN DIRECT (BEAKER) (test 0.7 mg/dL 0.1-0.5 H code = 706) ALKALINE PHOSPHATASE (BEAKER) (test 52 U/L 40-150 code = 346) AST (SGOT) (BEAKER) (test code = 27 U/L 5-34 353) ALT (SGPT) (BEAKER) (test code = 35 U/L 6-55 347) Heeler ID - [id number] 09:40:25 Test Item Value Reference Range Interpretation Comments MAGNESIUM (BEAKER) (test code = 3.7 mg/dL 1.6-2.6 H 627) Heeler ID - [id number] 09:40:25 Test Item Value Reference Range Interpretation Comments POTASSIUM (BEAKER) (test code = 3.0 meq/L 3.5-5.1 L 379) Heeler ID - BVXR CHEST 1 VIEW PORTABLE / [id number] 08:04:10 [facility] : 1975 Sex: MXR CHEST 1 VIEW PORTABLE / BEDSIDEINDICATION: PA cath placementCOMPARISON: Prior day's examFINDINGS: Portable frontal view of the chest. IMPRESSION:Support Lines: Right IJ PA catheter looped redundantly within the rightheart with tip overlying the pulmonary outflow tract. Lungs and pleura: No focal lung consolidation or large effusion. Nopulmonary edema. No pneumothorax.Heart and mediastinum: Stable contours. Additional findings: None.Electronically Signed By: Shawn Isbell11/25/2022 08:06 CDTWorkstation Name: [id number] METABOLIC PANEL 2022-11-25 04:59:05 Test Item Value Reference Range Interpretation Comments SODIUM (BEAKER) 140 meq/L 136-145 (test code = 381) POTASSIUM 3.3 meq/L 3.5-5.1 L (BEAKER) (test code = 379) CHLORIDE (BEAKER) 98 meq/L 98-107 (test code = 382) CO2 (BEAKER) 28 meq/L 22-29 (test code = 355) BLOOD UREA 17 mg/dL 7-21 NITROGEN (BEAKER) (test code = 354) CREATININE 0.96 mg/dL 0.57-1.25 (BEAKER) (test code = 358) GLUCOSE RANDOM 119 mg/dL 70-105 H (BEAKER) (test code = 652) CALCIUM (BEAKER) 8.8 mg/dL 8.4-10.2 (test code = 697) EGFR (BEAKER) 99 Interpretatio n of eGFR (test code = mL/min/1.73 values Stage De scription 1092) sq m Result G1 Nelida l or high >=90 G2 Mildly decreased 60-89 G3a Mildl y to moderately 45-5 9 G3b Moderately to s everely 30-44 G4 Severl y decreased 15-29 G5 Kidney failure <15Reported eGF R is based on the CKD-EPI 2020 equation that d oes not use a race coefficientEsti mated GFR is not as accur ate as Creatinine Carol hurt in predicting glom erular filtration rate . Estimated GFR is not appl icable for dialysis patien ts Heeler ID - RAGHU [id number] 04:59:05 Test Item Value Reference Range Interpretation Comments MAGNESIUM (BEAKER) (test code = 1.9 mg/dL 1.6-2.6 627) Heeler ID - RAGHU [id number] 04:59:05 Test Item Value Reference Range Interpretation Comments PHOSPHORUS (BEAKER) (test code = 3.1 mg/dL 2.3-4.7 604) Heeler ID - RAGHU WOXYGEN SATURATION, [id number] 04:51:57 Test Item Value Reference Range Interpretation Comments O2 SATURATION (MEASURED) (BEAKER) 87.8 % (test code = 1455) LACTIC ACID, [id number] 04:37:28 Test Item Value Reference Range Interpretation Comments LACTATE BLOOD VENOUS 0.85 mmol/L 0.50-2.00 Specime n slightly (2) (BEAKER) (test hemolyzed code = 2872) Heeler ID - ADMINCBC W/PLT COUNT & AUTO [id number] 04:37:11 Test Item Value Reference Range Interpretation Comments WHITE BLOOD CELL COUNT (BEAKER) 14.1 K/ L 3.5-10.5 H (test code = 775) RED BLOOD CELL COUNT (BEAKER) 5.24 M/ L 4.63-6.08 (test code = 761) HEMOGLOBIN (BEAKER) (test code = 13.2 GM/DL 13.7-17.5 L 410) HEMATOCRIT (BEAKER) (test code = 42.7 % 40.1-51.0 411) MEAN CORPUSCULAR VOLUME (BEAKER) 82 fL 79-92 (test code = 753) MEAN CORPUSCULAR HEMOGLOBIN 25.2 pg 25.7-32.2 L (BEAKER) (test code = 751) MEAN CORPUSCULAR HEMOGLOBIN CONC 30.9 GM/DL 32.3-36.5 L (BEAKER) (test code = 752) RED CELL DISTRIBUTION WIDTH 14.7 % 11.6-14.4 H (BEAKER) (test code = 412) PLATELET COUNT (BEAKER) (test 304 K/CU MM 150-450 code = 756) MEAN PLATELET VOLUME (BEAKER) 9.1 fL 9.4-12.4 L (test code = 754) NUCLEATED RED BLOOD CELLS 0 /100 WBC 0-0 (BEAKER) (test code = 413) NEUTROPHILS RELATIVE PERCENT 81 % (BEAKER) (test code = 429) LYMPHOCYTES RELATIVE PERCENT 10 % (BEAKER) (test code = 430) MONOCYTES RELATIVE PERCENT 8 % (BEAKER) (test code = 431) EOSINOPHILS RELATIVE PERCENT 0 % (BEAKER) (test code = 432) BASOPHILS RELATIVE PERCENT 0 % (BEAKER) (test code = 437) NEUTROPHILS ABSOLUTE COUNT 11.32 K/ L 1.78-5.38 H (BEAKER) (test code = 670) LYMPHOCYTES ABSOLUTE COUNT 1.46 K/ L 1.32-3.57 (BEAKER) (test code = 414) MONOCYTES ABSOLUTE COUNT (BEAKER) 1.10 K/ L 0.30-0.82 H (test code = 415) EOSINOPHILS ABSOLUTE COUNT 0.04 K/ L 0.04-0.54 (BEAKER) (test code = 416) BASOPHILS ABSOLUTE COUNT (BEAKER) 0.06 K/ L 0.01-0.08 (test code = 417) IMMATURE GRANULOCYTES-RELATIVE 0.60 % 0.00-1.00 PERCENT (BEAKER) (test code = 2801) XR CHEST 1 VIEW PORTABLE / [id number] 23:48:50 [facility] LISA DELONGSHGUSTAVO RICHTERNE : 1975 Sex: MEXAMINATION: XR CHEST 1 VIEW PORTABLE / BEDSIDE INDICATION: PA line placementCOMPARISON: November 19, 2022 FINDINGS:LINES/TUBES: There is interval insertion of a Parlin-Iqra catheter withits tip overlying the region of the proximal left pulmonary artery. LUNGS: The lungs are well inflated. No focal airspace consolidation.PLEURA: No pleural effusion or pneumothorax.MEDIASTINUM: There is mild interval improvement in cardiomegaly.BONES/SOFT TISSUES: No acute osseous injury.ABDOMEN: No free air under the diaphragm.IMPRESSION:No focal pneumonia or airspace edema.Electronically Signed By: Avel Roberson11/24/2022 23:52 CDTWorkstation Name: [id number] SATURATION, [id number] 21:23:36 Test Item Value Reference Range Interpretation Comments O2 SATURATION (MEASURED) (BEAKER) 55.9 % (test code = 1455) HEPATIC FUNCTION [id number] 08:45:17 Test Item Value Reference Range Interpretation Comments TOTAL PROTEIN (BEAKER) (test code = 6.7 gm/dL 6.0-8.3 770) ALBUMIN (BEAKER) (test code = 1145) 3.8 g/dL 3.5-5.0 BILIRUBIN TOTAL (BEAKER) (test code 1.0 mg/dL 0.2-1.2 = 377) BILIRUBIN DIRECT (BEAKER) (test 0.5 mg/dL 0.1-0.5 code = 706) ALKALINE PHOSPHATASE (BEAKER) (test 55 U/L 40-150 code = 346) AST (SGOT) (BEAKER) (test code = 28 U/L 5-34 353) ALT (SGPT) (BEAKER) (test code = 39 U/L 6-55 347) Heeler ID - JSCBC W/PLT COUNT & AUTO [id number] 07:05:30 Test Item Value Reference Range Interpretation Comments WHITE BLOOD CELL COUNT (BEAKER) 11.8 K/ L 3.5-10.5 H (test code = 775) RED BLOOD CELL COUNT (BEAKER) 5.31 M/ L 4.63-6.08 (test code = 761) HEMOGLOBIN (BEAKER) (test code = 13.3 GM/DL 13.7-17.5 L 410) HEMATOCRIT (BEAKER) (test code = 43.4 % 40.1-51.0 411) MEAN CORPUSCULAR VOLUME (BEAKER) 82 fL 79-92 (test code = 753) MEAN CORPUSCULAR HEMOGLOBIN 25.0 pg 25.7-32.2 L (BEAKER) (test code = 751) MEAN CORPUSCULAR HEMOGLOBIN CONC 30.6 GM/DL 32.3-36.5 L (BEAKER) (test code = 752) RED CELL DISTRIBUTION WIDTH 14.7 % 11.6-14.4 H (BEAKER) (test code = 412) PLATELET COUNT (BEAKER) (test 307 K/CU MM 150-450 code = 756) MEAN PLATELET VOLUME (BEAKER) 9.3 fL 9.4-12.4 L (test code = 754) NUCLEATED RED BLOOD CELLS 0 /100 WBC 0-0 (BEAKER) (test code = 413) NEUTROPHILS RELATIVE PERCENT 72 % (BEAKER) (test code = 429) LYMPHOCYTES RELATIVE PERCENT 17 % (BEAKER) (test code = 430) MONOCYTES RELATIVE PERCENT 9 % (BEAKER) (test code = 431) EOSINOPHILS RELATIVE PERCENT 1 % (BEAKER) (test code = 432) BASOPHILS RELATIVE PERCENT 1 % (BEAKER) (test code = 437) NEUTROPHILS ABSOLUTE COUNT 8.53 K/ L 1.78-5.38 H (BEAKER) (test code = 670) LYMPHOCYTES ABSOLUTE COUNT 2.00 K/ L 1.32-3.57 (BEAKER) (test code = 414) MONOCYTES ABSOLUTE COUNT (BEAKER) 1.03 K/ L 0.30-0.82 H (test code = 415) EOSINOPHILS ABSOLUTE COUNT 0.10 K/ L 0.04-0.54 (BEAKER) (test code = 416) BASOPHILS ABSOLUTE COUNT (BEAKER) 0.10 K/ L 0.01-0.08 H (test code = 417) IMMATURE GRANULOCYTES-RELATIVE 0.50 % 0.00-1.00 PERCENT (BEAKER) (test code = 2801) BASIC METABOLIC [id number] 05:39:57 Test Item Value Reference Range Interpretation Comments SODIUM (BEAKER) 135 meq/L 136-145 L (test code = 381) POTASSIUM 4.1 meq/L 3.5-5.1 (BEAKER) (test code = 379) CHLORIDE (BEAKER) 102 meq/L 98-107 (test code = 382) CO2 (BEAKER) 20 meq/L 22-29 L (test code = 355) BLOOD UREA 21 mg/dL 7-21 NITROGEN (BEAKER) (test code = 354) CREATININE 1.08 mg/dL 0.57-1.25 (BEAKER) (test code = 358) GLUCOSE RANDOM 128 mg/dL 70-105 H (BEAKER) (test code = 652) CALCIUM (BEAKER) 8.9 mg/dL 8.4-10.2 (test code = 697) EGFR (BEAKER) 86 Interpretati on of eGFR (test code = mL/min/1.73 values Stage De scription 1092) sq m Result G1 Nelida l or high >=90 G2 Mildly decreased 60-89 G3a Mildl y to moderately 45-5 9 G3b Moderately to s everely 30-44 G4 Severl y decreased 15-29 G5 Kidney failure <15Reported eGF R is based on the CKD-EPI 2020 equation that d oes not use a race coefficientEsti mated GFR is not as accur ate as Creatinine Carol licha in predicting glom erular filtration rate . Estimated GFR is not appl icable for dialysis patien ts Heeler ID - [id number] 05:39:57 Test Item Value Reference Range Interpretation Comments MAGNESIUM (BEAKER) (test code = 2.1 mg/dL 1.6-2.6 627) Heeler ID - ADMINBASIC METABOLIC [id number] 06:20:57 Test Item Value Reference Range Interpretation Comments SODIUM (BEAKER) 139 meq/L 136-145 (test code = 381) POTASSIUM 3.9 meq/L 3.5-5.1 (BEAKER) (test code = 379) CHLORIDE (BEAKER) 101 meq/L 98-107 (test code = 382) CO2 (BEAKER) 24 meq/L 22-29 (test code = 355) BLOOD UREA 19 mg/dL 7-21 NITROGEN (BEAKER) (test code = 354) CREATININE 1.08 mg/dL 0.57-1.25 (BEAKER) (test code = 358) GLUCOSE RANDOM 107 mg/dL 70-105 H (BEAKER) (test code = 652) CALCIUM (BEAKER) 9.1 mg/dL 8.4-10.2 (test code = 697) EGFR (BEAKER) 86 Interpretatio n of eGFR (test code = mL/min/1.73 values Stage De scription 1092) sq m Result G1 Nelida l or high >=90 G2 Mildly decreased 60-89 G3a Mildl y to moderately 45-5 9 G3b Moderately to s everely 30-44 G4 Severl y decreased 15-29 G5 Kidney failure <15Reported eGF R is based on the CKD-EPI 2020 equation that d oes not use a race coefficientEsti mated GFR is not as accur ate as Creatinine Carol licha in predicting glom erular filtration rate . Estimated GFR is not appl icable for dialysis patien ts Heeler ID - [id number] 06:20:57 Test Item Value Reference Range Interpretation Comments MAGNESIUM (BEAKER) (test code = 2.0 mg/dL 1.6-2.6 627) Heeler ID - [id number] 06:20:57 Test Item Value Reference Range Interpretation Comments LIPASE (BEAKER) (test code = 749) 11 U/L 8-78 Heeler ID - MMDIGOXIN [id number] 06:20:06 Test Item Value Reference Range Interpretation Comments DIGOXIN LEVEL (BEAKER) (test code 0.67 ng/mL 0.80-2.00 L = 669) Heeler ID - MMCBC W/PLT COUNT & AUTO [id number] 06:01:08 Test Item Value Reference Range Interpretation Comments WHITE BLOOD CELL COUNT (BEAKER) 11.0 K/ L 3.5-10.5 H (test code = 775) RED BLOOD CELL COUNT (BEAKER) 5.41 M/ L 4.63-6.08 (test code = 761) HEMOGLOBIN (BEAKER) (test code = 13.5 GM/DL 13.7-17.5 L 410) HEMATOCRIT (BEAKER) (test code = 45.4 % 40.1-51.0 411) MEAN CORPUSCULAR VOLUME (BEAKER) 84 fL 79-92 (test code = 753) MEAN CORPUSCULAR HEMOGLOBIN 25.0 pg 25.7-32.2 L (BEAKER) (test code = 751) MEAN CORPUSCULAR HEMOGLOBIN CONC 29.7 GM/DL 32.3-36.5 L (BEAKER) (test code = 752) RED CELL DISTRIBUTION WIDTH 14.8 % 11.6-14.4 H (BEAKER) (test code = 412) PLATELET COUNT (BEAKER) (test 286 K/CU MM 150-450 code = 756) MEAN PLATELET VOLUME (BEAKER) 9.2 fL 9.4-12.4 L (test code = 754) NUCLEATED RED BLOOD CELLS 0 /100 WBC 0-0 (BEAKER) (test code = 413) NEUTROPHILS RELATIVE PERCENT 57 % (BEAKER) (test code = 429) LYMPHOCYTES RELATIVE PERCENT 32 % (BEAKER) (test code = 430) MONOCYTES RELATIVE PERCENT 9 % (BEAKER) (test code = 431) EOSINOPHILS RELATIVE PERCENT 2 % (BEAKER) (test code = 432) BASOPHILS RELATIVE PERCENT 1 % (BEAKER) (test code = 437) NEUTROPHILS ABSOLUTE COUNT 6.24 K/ L 1.78-5.38 H (BEAKER) (test code = 670) LYMPHOCYTES ABSOLUTE COUNT 3.54 K/ L 1.32-3.57 (BEAKER) (test code = 414) MONOCYTES ABSOLUTE COUNT (BEAKER) 0.96 K/ L 0.30-0.82 H (test code = 415) EOSINOPHILS ABSOLUTE COUNT 0.17 K/ L 0.04-0.54 (BEAKER) (test code = 416) BASOPHILS ABSOLUTE COUNT (BEAKER) 0.08 K/ L 0.01-0.08 (test code = 417) IMMATURE GRANULOCYTES-RELATIVE 0.50 % 0.00-1.00 PERCENT (BEAKER) (test code = 2801) CT PELVIS WITHOUT IV [id number] 00:19:55 [facility] : 1975 Sex: MCLINICAL HISTORY: Unlisted Reason for Examepigastric pain and abdominal spasms in HF patientFINDINGS:Multiple axial images of the abdomen and pelvis were performed withoutintravenous contrast. Oral contrast was given.This exam was performed according to our departmental dose-optimizationprogram, which includes automated exposure control, adjustment of the mAand/or kV according to patient size and/or use of the iterativereconstruction technique.Comparison:None.Lower chest: Elevated left hemidiaphragm with adjacent atelectasisversus scarring in the left lung base. No pleural effusion orpneumothorax. Cardiomegaly.Liver: Hepatic steatosis.Gallbladder and biliary tree: No significant findings.Spleen: No sig nificant findings.Adrenal Glands: No significant findings.Kidneys and ureters: No significant findings.Stomach and Duodenum: No significant findings.Pancreas: No significant findings.Bowel: No bowel obstruction or pneumatosis intestinalis.Appendix: Nonvisualized. No right lower quadrant inflammatory ch anges.Bladder: No significant findings.Major vascular structures: Scattered atherosclerotic calcifications.Reproductive organs: No significant findings.Other: Small, fat filled inguinal hernias.Skeleton: No acute bony abnormality.IMPRESSION:No acute CT abnormality to explain the patient's symptoms.Cardiomegaly.Elevated left hemidiaphragm with left basilar atelectasis versusscarring.Hepatic steatosis.Small, fat filled inguinal hernias.Electronically Signed By: Vic Charles11/23/2022 00:21 CDTWorkstation Name: [id number] ABDOMEN WITHOUT IV [id number] 00:19:55 [facility] : 1975 Sex: MCLINICAL HISTORY: Unlisted Reason for Examepigastric pain and abdominal spasms in HF patientFINDINGS:Multiple axial images of the abdomen and pelvis were performed withoutintravenous contrast. Oral contrast was given.This exam was performed according to our departmental dose-optimizationprogram, which includes automated exposure control, adjustment of the mAand/or kV according to patient size and/or useof the iterativereconstruction technique.Comparison:None.Lower chest: Elevated left hemidiaphragm with adjacent atelectasisversus scarring in the left lung base. No pleural effusion orpneumothorax. Cardiomegaly.Liver: Hepatic steatosis.Gallbladder and biliary tree: No significant findings.Spleen: No si gnificant findings.Adrenal Glands: No significant findings.Kidneys and ureters: No significant findings.Stomach and Duodenum: No significant findings.Pancreas: No significant findings.Bowel: No bowel obstruction or pneumatosis intestinalis.Appendix: Nonvisualized. No right lower quadrant inflammatory c hanges.Bladder: No significant findings.Major vascular structures: Scattered atherosclerotic calcifications.Reproductive organs: No significant findings.Other: Small, fat filled inguinal hernias.Skeleton: No acute bony abnormality.IMPRESSION:No acute CT abnormality to explain the patient's symptoms.Cardiomegaly.Elevated left hemidiaphragm with left basilar atelectasis versusscarring.Hepatic steatosis.Small, fat filled inguinal hernias.Electronically Signed By: Vic Charles11/23/2022 00:21 CDTWorkstation Name: [id number] METABOLIC [id number] 05:49:09 Test Item Value Reference Range Interpretation Comments SODIUM (BEAKER) 142 meq/L 136-145 (test code = 381) POTASSIUM 3.7 meq/L 3.5-5.1 (BEAKER) (test code = 379) CHLORIDE (BEAKER) 105 meq/L 98-107 (test code = 382) CO2 (BEAKER) 26 meq/L 22-29 (test code = 355) BLOOD UREA 17 mg/dL 7-21 NITROGEN (BEAKER) (test code = 354) CREATININE 1.07 mg/dL 0.57-1.25 (BEAKER) (test code = 358) GLUCOSE RANDOM 119 mg/dL 70-105 H (BEAKER) (test code = 652) CALCIUM (BEAKER) 8.9 mg/dL 8.4-10.2 (test code = 697) EGFR (BEAKER) 87 Interpretatio n of eGFR (test code = mL/min/1.73 values Stage De scription 1092) sq m Result G1 Nelida l or high >=90 G2 Mildly decreased 60-89 G3a Mildl y to moderately 45-5 9 G3b Moderately to s everely 30-44 G4 Severl y decreased 15-29 G5 Kidney failure <15Reported eGF R is based on the CKD-EPI 2020 equation that d oes not use a race coefficientEsti mated GFR is not as accur ate as Creatinine Carol licha in predicting glom erular filtration rate . Estimated GFR is not appl icable for dialysis patien ts Heeler ID - [id number] 05:49:09 Test Item Value Reference Range Interpretation Comments MAGNESIUM (BEAKER) (test code = 2.1 mg/dL 1.6-2.6 627) Heeler ID - BSCBC W/PLT COUNT & AUTO [id number] 05:32:36 Test Item Value Reference Range Interpretation Comments WHITE BLOOD CELL COUNT (BEAKER) 9.9 K/ L 3.5-10.5 (test code = 775) RED BLOOD CELL COUNT (BEAKER) 5.15 M/ L 4.63-6.08 (test code = 761) HEMOGLOBIN (BEAKER) (test code = 13.2 GM/DL 13.7-17.5 L 410) HEMATOCRIT (BEAKER) (test code = 42.9 % 40.1-51.0 411) MEAN CORPUSCULAR VOLUME (BEAKER) 83 fL 79-92 (test code = 753) MEAN CORPUSCULAR HEMOGLOBIN 25.6 pg 25.7-32.2 L (BEAKER) (test code = 751) MEAN CORPUSCULAR HEMOGLOBIN CONC 30.8 GM/DL 32.3-36.5 L (BEAKER) (test code = 752) RED CELL DISTRIBUTION WIDTH 14.9 % 11.6-14.4 H (BEAKER) (test code = 412) PLATELET COUNT (BEAKER) (test 258 K/CU MM 150-450 code = 756) MEAN PLATELET VOLUME (BEAKER) 9.2 fL 9.4-12.4 L (test code = 754) NUCLEATED RED BLOOD CELLS 0 /100 WBC 0-0 (BEAKER) (test code = 413) NEUTROPHILS RELATIVE PERCENT 62 % (BEAKER) (test code = 429) LYMPHOCYTES RELATIVE PERCENT 27 % (BEAKER) (test code = 430) MONOCYTES RELATIVE PERCENT 8 % (BEAKER) (test code = 431) EOSINOPHILS RELATIVE PERCENT 2 % (BEAKER) (test code = 432) BASOPHILS RELATIVE PERCENT 1 % (BEAKER) (test code = 437) NEUTROPHILS ABSOLUTE COUNT 6.15 K/ L 1.78-5.38 H (BEAKER) (test code = 670) LYMPHOCYTES ABSOLUTE COUNT 2.71 K/ L 1.32-3.57 (BEAKER) (test code = 414) MONOCYTES ABSOLUTE COUNT (BEAKER) 0.77 K/ L 0.30-0.82 (test code = 415) EOSINOPHILS ABSOLUTE COUNT 0.15 K/ L 0.04-0.54 (BEAKER) (test code = 416) BASOPHILS ABSOLUTE COUNT (BEAKER) 0.06 K/ L 0.01-0.08 (test code = 417) IMMATURE GRANULOCYTES-RELATIVE 0.60 % 0.00-1.00 PERCENT (BEAKER) (test code = 2801) BASIC METABOLIC [id number] 05:06:15 Test Item Value Reference Range Interpretation Comments SODIUM (BEAKER) 143 meq/L 136-145 (test code = 381) POTASSIUM 3.8 meq/L 3.5-5.1 (BEAKER) (test code = 379) CHLORIDE (BEAKER) 105 meq/L 98-107 (test code = 382) CO2 (BEAKER) 26 meq/L 22-29 (test code = 355) BLOOD UREA 18 mg/dL 7-21 NITROGEN (BEAKER) (test code = 354) CREATININE 1.07 mg/dL 0.57-1.25 (BEAKER) (test code = 358) GLUCOSE RANDOM 113 mg/dL 70-105 H (BEAKER) (test code = 652) CALCIUM (BEAKER) 9.4 mg/dL 8.4-10.2 (test code = 697) EGFR (BEAKER) 87 Interpretatio n of eGFR (test code = mL/min/1.73 values Stage De scription 1092) sq m Result G1 Nelida l or high >=90 G2 Mildly decreased 60-89 G3a Mild ly to moderately 45-5 9 G3b Moderately to s everely 30-44 G4 Severl y decreased 15-29 G5 Kidney failure <15Reported eGF R is based on the CKD-EPI 2020 equation that d oes not use a race coefficientEsti mated GFR is not as accur ate as Creatinine Carol hurt in predicting glom erular filtration rate . Estimated GFR is not appl icable for dialysis patien ts Heeler ID - [id number] 05:06:15 Test Item Value Reference Range Interpretation Comments MAGNESIUM (BEAKER) (test code = 2.3 mg/dL 1.6-2.6 627) Heeler ID - [facility] W/PLT COUNT & AUTO [id number] 04:49:42 Test Item Value Reference Range Interpretation Comments WHITE BLOOD CELL COUNT (BEAKER) 11.2 K/ L 3.5-10.5 H (test code = 775) RED BLOOD CELL COUNT (BEAKER) 5.48 M/ L 4.63-6.08 (test code = 761) HEMOGLOBIN (BEAKER) (test code = 13.7 GM/DL 13.7-17.5 410) HEMATOCRIT (BEAKER) (test code = 45.8 % 40.1-51.0 411) MEAN CORPUSCULAR VOLUME (BEAKER) 84 fL 79-92 (test code = 753) MEAN CORPUSCULAR HEMOGLOBIN 25.0 pg 25.7-32.2 L (BEAKER) (test code = 751) MEAN CORPUSCULAR HEMOGLOBIN CONC 29.9 GM/DL 32.3-36.5 L (BEAKER) (test code = 752) RED CELL DISTRIBUTION WIDTH 15.0 % 11.6-14.4 H (BEAKER) (test code = 412) PLATELET COUNT (BEAKER) (test 267 K/CU MM 150-450 code = 756) MEAN PLATELET VOLUME (BEAKER) 9.3 fL 9.4-12.4 L (test code = 754) NUCLEATED RED BLOOD CELLS 0 /100 WBC 0-0 (BEAKER) (test code = 413) NEUTROPHILS RELATIVE PERCENT 62 % (BEAKER) (test code = 429) LYMPHOCYTES RELATIVE PERCENT 26 % (BEAKER) (test code = 430) MONOCYTES RELATIVE PERCENT 9 % (BEAKER) (test code = 431) EOSINOPHILS RELATIVE PERCENT 1 % (BEAKER) (test code = 432) BASOPHILS RELATIVE PERCENT 1 % (BEAKER) (test code = 437) NEUTROPHILS ABSOLUTE COUNT 6.94 K/ L 1.78-5.38 H (BEAKER) (test code = 670) LYMPHOCYTES ABSOLUTE COUNT 2.93 K/ L 1.32-3.57 (BEAKER) (test code = 414) MONOCYTES ABSOLUTE COUNT (BEAKER) 1.02 K/ L 0.30-0.82 H (test code = 415) EOSINOPHILS ABSOLUTE COUNT 0.16 K/ L 0.04-0.54 (BEAKER) (test code = 416) BASOPHILS ABSOLUTE COUNT (BEAKER) 0.07 K/ L 0.01-0.08 (test code = 417) IMMATURE GRANULOCYTES-RELATIVE 0.40 % 0.00-1.00 PERCENT (BEAKER) (test code = 2801) ECG 12 [id number] 00:54:56 Test Item Value Reference Range Interpretation Comments Ventricular rate (test 119 code = 253) QRSD interval (test 98 code = 260) QT interval (test code 308 = 264) QTC interval (test 433 code = 265) QRS axis 1 (test code 78 = 268) T wave axis (test code 150 = 270) EKG impression (test Atrial fibrillation code = 273) with rapid ventricular response-Low voltage QRS-Cannot rule out Anterior infarct , age undetermined-Abnormal ECG-No previous ECGs available-Electronicall y Signed By Minna Keller MD ([id number]) on 11/20/2022 7:50:01 PM [facility]/FREE T4 IF [id number] 07:50:17 Test Item Value Reference Range Interpretation Comments THYROID STIMULATING HORMONE 2.329 uIU/mL 0.350-4.940 (BEAKER) (test code = 772) Heeler ID - BSBASIC METABOLIC [id number] 07:27:59 Test Item Value Reference Range Interpretation Comments SODIUM (BEAKER) 137 meq/L 136-145 (test code = 381) POTASSIUM 4.1 meq/L 3.5-5.1 (BEAKER) (test code = 379) CHLORIDE (BEAKER) 103 meq/L 98-107 (test code = 382) CO2 (BEAKER) 25 meq/L 22-29 (test code = 355) BLOOD UREA 15 mg/dL 7-21 NITROGEN (BEAKER) (test code = 354) CREATININE 0.98 mg/dL 0.57-1.25 (LORENAAKER) (test code = 358) GLUCOSE RANDOM 105 mg/dL 70-105 (LORENAAKER) (test code = 652) CALCIUM (LORENAAKER) 9.3 mg/dL 8.4-10.2 (test code = 697) EGFR (LORENAAKER) 96 Interpretatio n of eGFR (test code = mL/min/1.73 values Stage De scription 1092) sq m Result G1 Nelida l or high >=90 G2 Mildly decreased 60-89 G3a Mildl y to moderately 45-5 9 G3b Moderately to s everely 30-44 G4 Severl y decreased 15-29 G5 Kidney failure <15Reported eGF R is based on the CKD-EPI 2020 equation that d oes not use a race coefficientEsti mated GFR is not as accur ate as Creatinine Carol licha in predicting glom erular filtration rate . Estimated GFR is not appl icable for dialysis patien ts Heeler ID - MMHIGH SENSITIVITY TROPONIN [id number] 01:52:57 Test Item Value Reference Range Interpretation Comments HIGH SENSITIVITY TROPONIN I (test 45 pg/ml <=35 H code = 7835443) Heeler ID - BSThe COMMERCIAL LITIGATION PARALEGAL STAT High Sensitivity Troponin-I results should be used in conjunctionwith other diagnostic information such as ECG, clinical observations and information, and patient symptoms to aid in the diagnosis of HI.XR CHEST 1 VIEW PORTABLE / [id number] 20:32:49 [facility] : 1975 Sex: MTECHNIQUE: Frontal view of the chest.INDICATION: PALPITATIONS.COMPARISON: None.FINDINGS:LINES/TUBES: None.HEART AND MEDIASTINUM: Borderline cardiomegaly. LUNGS: The lungs are well inflated and clear. No consolidation orpulmonary edema.PLEURA: No pneumothorax. No significant pleural effusion.SOFT TISSUES AND BONES: Unremarkable.IMPRESSION:Borderline cardiomegaly. No acute cardiopulmonary process.Electronically Signed By: German Irvin11/19/2022 20:34 CDTWorkstation Name: [id number] 20:26:17 Test Item Value Reference Range Interpretation Comments DIGOXIN LEVEL (BEAKER) (test code 0.98 ng/mL 0.80-2.00 = 669) Heeler ID - BSB-TYPE NATRIURETIC FACTOR (BNP)2022-11-19 20:01:53 Test Item Value Reference Range Interpretation Comments B-TYPE NATRIURETIC PEPTIDE (BEAKER) 694 pg/mL 0-100 H (test code = 700) Heeler ID - BSHIGH SENSITIVITY TROPONIN [id number] 20:01:32 Test Item Value Reference Range Interpretation Comments HIGH SENSITIVITY TROPONIN I (test 61 pg/ml <=35 H code = 6407941) Heeler ID - BSThe COMMERCIAL LITIGATION PARALEGAL STAT High Sensitivity Troponin-I results should be used in conjunctionwith other diagnostic information such as ECG, clinical observations and information, and patient symptoms to aid in the diagnosis of HI.[id number] 19:55:11 Test Item Value Reference Range Interpretation Comments MAGNESIUM (BEAKER) (test code = 2.0 mg/dL 1.6-2.6 627) Heeler ID - BSBASIC METABOLIC [id number] 19:55:10 Test Item Value Reference Range Interpretation Comments SODIUM (BEAKER) 141 meq/L 136-145 (test code = 381) POTASSIUM 4.4 meq/L 3.5-5.1 (BEAKER) (test code = 379) CHLORIDE (BEAKER) 105 meq/L 98-107 (test code = 382) CO2 (BEAKER) 25 meq/L 22-29 (test code = 355) BLOOD UREA 11 mg/dL 7-21 NITROGEN (BEAKER) (test code = 354) CREATININE 0.97 mg/dL 0.57-1.25 (BEAKER) (test code = 358) GLUCOSE RANDOM 124 mg/dL 70-105 H (BEAKER) (test code = 652) CALCIUM (BEAKER) 9.2 mg/dL 8.4-10.2 (test code = 697) EGFR (BEAKER) 97 Interpretatio n of eGFR (test code = mL/min/1.73 values Stage De scription 1092) sq m Result G1 Nelida l or high >=90 G2 Mildly decreased 60-89 G3a Mildl y to moderately 45-5 9 G3b Moderately to s everely 30-44 G4 Severl y decreased 15-29 G5 Kidney failure <15Reported eGF R is based on the CKD-EPI 2020 equation that d oes not use a race coefficientEsti mated GFR is not as accur ate as Creatinine Carol licha in predicting glom erular filtration rate . Estimated GFR is not appl icable for dialysis patien ts Heeler ID - BSCBC W/PLT COUNT & AUTO [id number] 19:37:31 Test Item Value Reference Range Interpretation Comments WHITE BLOOD CELL COUNT (BEAKER) 10.9 K/ L 3.5-10.5 H (test code = 775) RED BLOOD CELL COUNT (BEAKER) 5.07 M/ L 4.63-6.08 (test code = 761) HEMOGLOBIN (BEAKER) (test code = 12.6 GM/DL 13.7-17.5 L 410) HEMATOCRIT (BEAKER) (test code = 41.8 % 40.1-51.0 411) MEAN CORPUSCULAR VOLUME (BEAKER) 82 fL 79-92 (test code = 753) MEAN CORPUSCULAR HEMOGLOBIN 24.9 pg 25.7-32.2 L (BEAKER) (test code = 751) MEAN CORPUSCULAR HEMOGLOBIN CONC 30.1 GM/DL 32.3-36.5 L (BEAKER) (test code = 752) RED CELL DISTRIBUTION WIDTH 14.9 % 11.6-14.4 H (BEAKER) (test code = 412) PLATELET COUNT (BEAKER) (test 264 K/CU MM 150-450 code = 756) MEAN PLATELET VOLUME (BEAKER) 8.7 fL 9.4-12.4 L (test code = 754) NUCLEATED RED BLOOD CELLS 0 /100 WBC 0-0 (BEAKER) (test code = 413) NEUTROPHILS RELATIVE PERCENT 69 % (BEAKER) (test code = 429) LYMPHOCYTES RELATIVE PERCENT 19 % (BEAKER) (test code = 430) MONOCYTES RELATIVE PERCENT 10 % (BEAKER) (test code = 431) EOSINOPHILS RELATIVE PERCENT 1 % (BEAKER) (test code = 432) BASOPHILS RELATIVE PERCENT 1 % (BEAKER) (test code = 437) NEUTROPHILS ABSOLUTE COUNT 7.54 K/ L 1.78-5.38 H (BEAKER) (test code = 670) LYMPHOCYTES ABSOLUTE COUNT 2.08 K/ L 1.32-3.57 (BEAKER) (test code = 414) MONOCYTES ABSOLUTE COUNT (BEAKER) 1.08 K/ L 0.30-0.82 H (test code = 415) EOSINOPHILS ABSOLUTE COUNT 0.13 K/ L 0.04-0.54 (BEAKER) (test code = 416) BASOPHILS ABSOLUTE COUNT (BEAKER) 0.05 K/ L 0.01-0.08 (test code = 417) IMMATURE GRANULOCYTES-RELATIVE 0.50 % 0.00-1.00 PERCENT (BEAKER) (test code = 2801) ECG ED Preliminary Interpretation - Not an [id number] 01:35:39 Test Item Value Reference Range Interpretation Comments ELIS (test code = ELIS) Jackie Hernandez MD 11/18/2022 11:12 [facility] [place] Preliminary Interpretation - Not an Order Performed by: Jackie Hernandez MDAuthorized by: Jackie Hernandez MD ECG reviewed by ED Physician in the absence of a leadite man: yes Previous ECG: Previous ECG: UnavailableInterpretat ion: Interpretation: abnormal Rate: ECG rate: 119 ECG rate assessment: tachycardic Rhythm: Rhythm: sinus tachycardia and atrial fibrillation Ectopy: Ectopy: none QRS: QRS axis: NormalST segments: ST segments: Non-specificT waves: T waves: non-specific Lab Interpretation Abnormal (test code = 78250-9) [id number]:26[facility]00 Test Item Value Reference Range Interpretation Comments Urine culture (test SEE COMMENT Bacteriu yury screen code = [id number]) negative. [facility]
[2023-02-22 12:40] LABS: Absolute Lymphocytes (CBC) 1.7 K/uL (0.7-4.9); Lymphocytes % 16.8 % (15.3-44.8); MCV 80.8 fL (80-100); Platelets 278 thou/uL (152-406); RBC Red Blood Cell Count 4.46 M/uL (4.33-5.43)
--- NOTE | 2023-02-22 12:49 | RAD REPORT ---
EXAM DESCRIPTION: RAD - Chest Single View - 02/22/2023 12:39 pm CLINICAL HISTORY: SWELLING COMPARISON: No comparisons FINDINGS: Lines: None. Lungs: Diffuse prominence of the pulmonary station. Pleural: No significant pleural effusions or pneumothorax. Cardiac: The heart size is within normal limits. Mediastinum: Within normal limits. Bones: No acute fractures. Other: None IMPRESSION: Prominence of the pulmonary vasculature which could reflect mild edema.
[2023-02-22 12:56] LABS: Magnesium 2.9 mg/dL (1.6-2.4); Potassium 4.1 mEq/L (3.5-5.1); Troponin High Sensitivity 49.4 pg/mL (<58.9)
[2023-02-22] MEDS ORDERED: DIGOXIN 0.25 MG TABLET ONE (13:18)
[2023-02-22] MEDS ORDERED: DIGOXIN 0.25 MG/ML AMP ONE ×2 (13:22→15:04)
[2023-02-22] MEDS ORDERED: MAGNESIUM SULFATE 1 gm IVPB 1 GM/100 ML BAG IV ONE (15:04)
--- NOTE | 2023-02-22 16:05 | EDPHYS ---
[facility] Documentation [facility] Name[facility] Toan [facility] Age: 48 yrs Sex: Male : 1975 Arrival Date: 02/22/2023 Time: 11:27 Bed 17 Private MD: ED Physician Nishant Holder HPI: 02/22 15:57 This 48 yrs old Male presents to ER via Wheelchair with complaints of Excess fluid. kb 18:44 The patient has shortness of breath at rest. Onset: The symptoms/episode began/occurred kb 3 week(s) ago. Duration: The symptoms are continuous. The patient's shortness of breath is aggravated by exertion. Associated signs and symptoms: Pertinent positives: chest pain. Severity of symptoms: At their worst the symptoms were moderate in the emergency department the symptoms are unchanged. The patient has experienced a previous episode. The patient has not recently seen a physician. Patient reports he went on vacation 2 to 3 weeks ago and started having lower extremity edema. States the symptoms have gotten continuously worse and he has had chest pain as well. Reports history of CHF and A-fib. States he was admitted to [facility] over the summer and was treated by Dr. Gan, charger tester. States he has not been in A-fib or had any swelling issues since discharge in December.. Historical: - Allergies: 11:45 No Known Allergies; hb - PMHx: 11:45 Hypertensive disorder; Congestive heart failure; hb - PSHx: 11:45 Appendectomy; hb - Immunization history:: Adult Immunizations up to date. - Social history:: Smoking status: Patient denies any tobacco usage or history of. ROS: 15:29 Constitutional: Negative for fever, chills, and weight loss, kb 15:29 Cardiovascular: Positive for chest pain, edema, 15:29 Respiratory: Positive for shortness of breath, 15:29 All other systems are negative, Exam: 15:29 Constitutional: This is a well developed, well nourished patient who is awake, alert, kb and in no acute distress. Head/Face: Normocephalic, atraumatic. ENT: Moist Mucous membranes Abdomen/GI: Soft, non-tender. No distention Skin: Warm, dry with normal turgor. Normal color. MS/ Extremity: Pulses equal, no cyanosis. Neurovascular intact. Full, normal range of motion. Neuro: Awake and alert, GCS 15, oriented to person, place, time, and situation. Moves all extremities. Normal gait. 15:29 Cardiovascular: Rate: tachycardic, Rhythm: irregularly irregular, Pulses: no pulse deficits are appreciated, Edema: 3+ edema to level of lower extremities, 15:29 Respiratory: mild respiratory distress is noted, Respirations: labored breathing, that is mild, Breath sounds: are clear throughout, Vital Signs: 11:46 BP 108 / 83; Pulse 70; Resp 24; Temp 98; Pulse Ox 100% on R/A; Weight 136.08 kg; Height hb 6 ft. 3 in. ; Pain 8/10; 12:00 BP 105 / 80; Pulse 106; Resp 22; Pulse Ox 99% ; cp4 12:30 BP 104 / 81; Pulse 121; Resp 22; Pulse Ox 99% ; cp4 13:00 BP 114 / 88; Pulse 106; Resp 20; Pulse Ox 98% ; cp4 13:30 BP 116 / 81; Pulse 106; Resp 20; Pulse Ox 99% ; cp4 14:00 BP 114 / 83; Pulse 103; Resp 20; Pulse Ox 98% ; cp4 14:30 BP 114 / 80; Pulse 106; Resp 20; Pulse Ox 100% ; cp4 15:00 BP 104 / 89; Pulse 142; Resp 20; Pulse Ox 98% ; cp4 15:30 BP 125 / 90; Pulse 110; Resp 20; Pulse Ox 96% ; cp4 16:00 BP 130 / 79; Pulse 101; Resp 20; Pulse Ox 96% ; cp4 11:46 Body Mass Index 37.50 (136.08 kg, 190.5 cm) hb 11:46 Pain Scale: Adult hb MDM: 11:35 Patient medically screened. kb 15:31 Data reviewed: vital signs, nurses notes. kb 18:39 Differential diagnosis: CHF exacerbation, Myocardial Infarction pulmonary edema. kb Consideration of Admission/Observation Escalation of care including admission/observation considered. Patient will be transferred after case discussed with Dr. Morris. 18:46 Management of patient was discussed with the following: Claims Representative: Discussed case with bipin Morris multiple times who ultimately recommended transfer for possible ablation. Historians other than the Patient: Spouse/Significant Other: . Care significantly affected by the following chronic conditions: Hypertension, Congestive Heart Failure. Counseling: I had a detailed discussion with the patient and/or guardian regarding the historical points, exam findings, and any diagnostic results supporting the discharge/admit diagnosis, lab results, radiology results, the need to transfer to another facility, for higher level of care. Refusal of service: The patient/guardian displays adequate decision making capability and despite a detailed discussion of alternatives, benefits, risks, and consequences refuses: Transfer. ED course: Discussed transfer with patient on more than one occasion. Patient states he is fine with going to [facility] but will not go by ambulance. Patient educated on importance of monitoring for life-saving measures if needed by a trained medical staff on EMS. Patient states he understands that it is protocol but he is going to leave AGAINST MEDICAL ADVICE and his will drive him. I discussed risk of patient leaving and going to another facility including worsening condition and loss of life. Patient understands all risks and still would like to have his drive him to another facility. . 18:49 ED course: Patient has decided to leave our facility AGAINST MEDICAL ADVICE. I have kb assessed the patient's ability to make an informed decision and it is my opinion at this time that the patient has the medical decision-making capacity to comprehend information regarding current medical condition and appreciates the impact of the disease or condition and the consequences of various options for treatment, including foregoing treatment. The patient possesses the ability to evaluate all treatment options, compare the risk and benefits of each option, communicate choice and is able to make rational choices. I have explained to the patient further testing, treatment, and evaluation I would like to perform during the current emergency department visit as well as any possible alternatives that could be accomplished in a timely manner. I have outlined the possible risk of foregoing any or all of these interventions and the patient understands and acknowledges that the decision to leave may result in undesirable consequences such as , permanent disability, and/or loss of current lifestyle. Even though leaving AMA a is not ideal, I have instructed the patient to follow any discharge instructions given, take any medications prescribed and resume care as soon as possible with another provider. Additionally, I have clearly stated that the patient is welcome to return at any time to continue care at our facility.. 02/22 11:48 Order name: Basic Metabolic Panel; Complete Time: 12:59 kb 02/22 11:48 Order name: CBC with Diff; Complete Time: 12:41 kb 02/22 11:48 Order name: Magnesium; Complete Time: 12:59 kb 02/22 11:48 Order name: NT PRO-BNP; Complete Time: 12:59 kb 02/22 11:48 Order name: Troponin HS; Complete Time: 12:59 kb 02/22 11:48 Order name: XRAY Chest (1 view); Complete Time: 12:54 kb 02/22 11:48 Order name: EKG; Complete Time: 11:48 kb 02/22 11:48 Order name: Cardiac monitoring; Complete Time: 12:15 kb 02/22 11:48 Order name: EKG - Nurse/Tech; Complete Time: 12:48 kb 02/22 11:48 Order name: IV Saline Lock; Complete Time: 12:15 kb 02/22 11:48 Order name: Labs collected and sent; Complete Time: 12:15 kb 02/22 11:48 Order name: O2 Per Protocol; Complete Time: 12:15 kb 02/22 11:48 Order name: O2 Sat Monitoring; Complete Time: 12:15 kb Administered Medications: 12:14 Drug: Furosemide IVP 40 mg IVP once; give over 2 minutes Route: IVP; Site: right cp4 antecubital; 14:58 Follow up: Response: No adverse reaction cp4 12:14 Drug: Aspirin PO Chewable Tablet 324 mg PO once; 81 mg tablets x 4 Route: PO; cp4 14:58 Follow up: Response: No adverse reaction cp4 13:07 Drug: Digoxin IVP 0.125 mg IVP once Route: IVP; Site: right antecubital; cp4 14:58 Follow up: Response: No adverse reaction cp4 14:42 CANCELLED (Patient Refused): [id number] mg, d5w iv 500 ml IVPB at 1 mg/min kb continuous; for 6 hrs, then change to 0.5 mg/min 14:42 CANCELLED (Duplicate Order): [id number] mg 100 ml IVPB once over 10 mins; (mix in kb D5W) 14:57 Drug: Magnesium Sulfate IVPB 1 grams IVPB once over 1 hrs Route: IVPB; Infused Over: 1 cp4 hrs; Site: right antecubital; 14:58 Drug: Digoxin IVP 0.125 mg IVP once Route: IVP; Site: right antecubital; cp4 Disposition: 02/23 10:01 Co-signature as Attending Physician, Nishant Holder MD I reviewed the patient's care rn provided by the Advanced Practice Provider and agree with the diagnosis and treatment plan. Disposition Summary: 02/22/23 16:04 Left Against Medical Advice Notes: Location: Home kb Problem: new kb Symptoms: are unchanged kb Condition: Serious kb Diagnosis - Chest pain, unspecified kb - Unspecified atrial flutter kb - Generalized edema kb - Unspecified combined systolic (congestive) and diastolic (congestive) heart failure kb Signatures: Dispatcher [employer] EDMS Erika Meyer, JAVA SCALA DEVELOPER-C JAVA SCALA DEVELOPER-Ckb Nishant Holder MD MD rn Baxter, Heather, RN RN hb Potter, Christina cp4 Corrections: (The following items were deleted from the chart) 02/22 14:42 13:55 amiodarone IVPB 900 mg, D5W IV 500 ml IVPB at 1 mg/min continuous; for 6 hrs, kb then change to 0.5 mg/min ordered. kb 14:42 13:55 amiodarone IVPB 150 mg 100 ml IVPB once over 10 mins; (mix in D5W) ordered. kb kb
--- NOTE | 2023-02-22 16:05 | ER ---
Nurse's Notes [facility] Name: Toan Gonzáles Age: 48 yrs Sex: Male : 1975 Arrival Date: 02/22/2023 Time: 11:27 Bed 17 Private MD: Diagnosis: Chest pain, unspecified;Unspecified atrial flutter;Generalized edema;Unspecified combined systolic (congestive) and diastolic (congestive) heart failure Presentation: 02/22 11:46 Chief complaint: Patient states: SOB, abd pain, swelling BLE worse than usual although hb he is taking his diuretic. Coronavirus screen: Client denies travel out of the [place] in the last 14 days. At this time, the client does not indicate any symptoms associated with coronavirus-19. Ebola Screen: Patient denies travel to an Ebola-affected area in the 21 days before illness onset. Initial Sepsis Screen: Does the patient meet any 2 criteria? No. Patient's initial sepsis screen is negative. Does the patient have a suspected source of infection? Yes: Acute abdominal pain. Risk Assessment: Do you want to hurt yourself or someone else? Patient reports no desire to harm self or others. Onset of symptoms was February 01, 2023. 11:46 Method Of Arrival: Wheelchair hb 11:46 Acuity: YONI 3 hb Historical: - Allergies: 11:45 No Known Allergies; hb - PMHx: 11:45 Hypertensive disorder; Congestive heart failure; hb - PSHx: 11:45 Appendectomy; hb - Immunization history:: Adult Immunizations up to date. - Social history:: Smoking status: Patient denies any tobacco usage or history of. Screenin:01 [facility] ED Fall Risk Assessment (Adult) History of falling in the last 3 months, cp4 including since admission No falls in past 3 months (0 pts) Confusion or Disorientation No (0 pts) Intoxicated or Sedated No (0 pts) Impaired Gait No (0 pts) Mobility Assist Device Used No (0 pt) Altered Elimination No (0 pt) Score/Fall Risk Level 0 - 2 = Low Risk Oriented to surroundings, Maintained a safe environment, Educated pt \T\ family on fall prevention, incl call for assistance when getting out of bed, Hourly rounding (assess needs \T\ fall precautionary measures) done. Abuse screen: Denies threats or abuse. Nutritional screening: No deficits noted. Tuberculosis screening: No symptoms or risk factors identified. Assessment: 12:58 General: Appears uncomfortable, Behavior is calm, cooperative, appropriate for age. cp4 Pain: Denies pain. Cardiovascular: Reports fluid overload due to CHF. Respiratory: Reports shortness of breath at rest. Vital Signs: 11:46 BP 108 / 83; Pulse 70; Resp 24; Temp 98; Pulse Ox 100% on R/A; Weight 136.08 kg; Height hb 6 ft. 3 in. ; Pain 8/10; 12:00 BP 105 / 80; Pulse 106; Resp 22; Pulse Ox 99% ; cp4 12:30 BP 104 / 81; Pulse 121; Resp 22; Pulse Ox 99% ; cp4 13:00 BP 114 / 88; Pulse 106; Resp 20; Pulse Ox 98% ; cp4 13:30 BP 116 / 81; Pulse 106; Resp 20; Pulse Ox 99% ; cp4 14:00 BP 114 / 83; Pulse 103; Resp 20; Pulse Ox 98% ; cp4 14:30 BP 114 / 80; Pulse 106; Resp 20; Pulse Ox 100% ; cp4 15:00 BP 104 / 89; Pulse 142; Resp 20; Pulse Ox 98% ; cp4 15:30 BP 125 / 90; Pulse 110; Resp 20; Pulse Ox 96% ; cp4 16:00 BP 130 / 79; Pulse 101; Resp 20; Pulse Ox 96% ; cp4 11:46 Body Mass Index 37.50 (136.08 kg, 190.5 cm) hb 11:46 Pain Scale: Adult hb ED Course: 11:31 Patient arrived in ED. ts1 11:34 E[facility] Meyer F[facility]-C [facility] kb 11:34 Nishant Holder MD is Attending Physician. kb 11:45 Arm band placed on Patient placed in an exam room, on a stretcher. hb 11:48 Triage completed. hb 11:52 Gunjan Atwood is Primary Nurse. cp4 12:15 Basic Metabolic Panel Sent. cp4 12:15 CBC with Diff Sent. cp4 12:15 Magnesium Sent. cp4 12:15 NT PRO-BNP Sent. cp4 12:15 Troponin HS Sent. cp4 12:15 Inserted saline lock: 20 gauge in right antecubital area, using aseptic technique. cp4 Blood collected. 12:41 XRAY Chest (1 view) In Process Unspecified. EDMS 13:01 Placed in gown. Bed in low position. Call light in reach. Side rails up X 1. cp4 16:20 Provided Education on: AMA and risk involved. . cp4 16:20 No provider procedures requiring assistance completed. intact, bleeding controlled, No cp4 redness/swelling at site. Pressure dressing applied. Administered Medications: 12:14 Drug: Furosemide IVP 40 mg IVP once; give over 2 minutes Route: IVP; Site: right cp4 antecubital; 14:58 Follow up: Response: No adverse reaction cp4 12:14 Drug: Aspirin PO Chewable Tablet 324 mg PO once; 81 mg tablets x 4 Route: PO; cp4 14:58 Follow up: Response: No adverse reaction cp4 13:07 Drug: Digoxin IVP 0.125 mg IVP once Route: IVP; Site: right antecubital; cp4 14:58 Follow up: Response: No adverse reaction cp4 14:42 CANCELLED (Patient Refused): [id number] mg, d5w iv 500 ml IVPB at 1 mg/min kb continuous; for 6 hrs, then change to 0.5 mg/min 14:42 CANCELLED (Duplicate Order): [id number] mg 100 ml IVPB once over 10 mins; (mix in kb D5W) 14:57 Drug: Magnesium Sulfate IVPB 1 grams IVPB once over 1 hrs Route: IVPB; Infused Over: 1 cp4 hrs; Site: right antecubital; 14:58 Drug: Digoxin IVP 0.125 mg IVP once Route: IVP; Site: right antecubital; cp4 Medication: 13:01 VIS not applicable for this client. cp4 Outcome: 16:20 AMA AMA form signed cp4 16:20 Condition: stable 16:20 Discharge instructions given to patient, Instructed on follow up and referral plans. Demonstrated understanding of follow-up care, 16:21 Patient left the ED. cp4 Signatures: Dispatcher [employer] EDMS Erika Meyer, PETRA MORELANDP-Nora Yeager, ANAI RN Etta Montanez, ELVER PAS ts1 Gunjan Atwood cp4
--- NOTE | 2023-02-23 18:07 | EKG ---
Test Date: 2023-02-22 Test Time: 12:27:22 [employer] Technology Development Manager: BIJAN MEASUREMENT RESULTS: Intervals: Rate: 105 SC: QRSD: 100 QT: 356 QTc: 470 [place]: P: 268 SC: QRS: 211 T: 238 INTERPRETIVE STATEMENTS: Atrial flutter with variable AV block with premature ventricular or aberrantly conducted complexes Low voltage QRS Possible Anterolateral infarct, age undetermined Marked ST abnormality, possible inferior subendocardial injury Abnormal ECG No previous ECG available for comparison Electronically Signed On 02-23-23 18:05:33 CDT by Adair Morris
--- NOTE | 2023-02-24 11:59 | EKG ---
Test Date: 2023-02-22 Test Time: 15:19:50 Machine Greaser: BIJAN MEASUREMENT RESULTS: Intervals: Rate: 133 CO: QRSD: 102 QT: 340 QTc: 506 Post: P: 269 CO: QRS: 165 T: -50 INTERPRETIVE STATEMENTS: Atrial flutter with variable AV block Low voltage QRS Possible Anterolateral infarct, age undetermined Marked ST abnormality, possible inferior subendocardial injury Abnormal ECG Compared to ECG 02/22/2023 12:27:22 Ventricular premature complex(es) no longer present Myocardial infarct finding still present ST (T wave) deviation still present Electronically Signed On 02-24-23 11:54:48 CDT by Adair Morris
== END 2023-02-22 16:21 | disposition left against medical advice (07) ==
LOC: ER 11:27
DX: R07.89 Other chest pain (principal); I48.92 Unspecified atrial flutter; I50.40 Unspecified combined systolic (congestive) and diastolic (congestive) heart failure; R60.9 Edema, unspecified; I10 Essential (primary) hypertension
CPT/HCPCS: 93005; 85025; 80048; 36415; 83735; 84484; 83880; 71045; 96375; 96374; 99284; J3475; J1160 ×2